=== PATIENT | female | born 1945 | race Caucasian/White ===

== ENCOUNTER → 2016-07-12 | Outpatient (CLI) | payer MEDICARE ==
[~2016-07-12] MED LIST: CALC1TAB30 PO; CALCTAB70; FOLI400T PO; FOLI400T30 PO; FURO1TAB60 PO; FURO1TAB62 PO; LEVO50TA4 PO; MAGN250T5; MAGN250T5 PO; METH50P; METH5INJ; METO25TA3 PO; OMEP10CA PO; OMEP40CA2 PO; PRAV40TA2 PO; PRIL10CA PO; PYRI100T4 PO; PYRI1TAB5; SILV1CRE80 TOPICAL; SYMB80AE INH; TOCI20IN; WARF-23 PO; WARF5 PO
[2016-07-12 11:32] LABS: BLOOD GAS BASE EXCESS 1.3 mmol/L (-2-2); BLOOD GAS CARBOXYHEMOGLOBIN 1.6 % (0-4); BLOOD GAS HCO3 25 mmol/L (22-26); BLOOD GAS METHEMOGLOBIN 1.1 % (0-2); BLOOD GAS O2 HGB SATURATION 91 % (90-100); BLOOD GAS OXYGEN CONTENT 16.9 Vol % (12.0-20.0); BLOOD GAS PCO2 39 mmHg (38-42); BLOOD GAS PO2 68 mmHg (61-120); BLOOD GAS TOTAL HGB 13.1 G/DL (12.0-16.0); CRITICAL VALUE NO; DRAW SITE RT RADIAL; FIO2 21 %; NUMBER OF ARTERIAL PUNCTURES 1; STAT NO; TEMP CORR TO 98.6; ULNAR PULSE PRESENT
--- NOTE | 2016-07-17 10:04 | RSPPFT ---
DATE OF PROCEDURE: 07/12/16 COMMENTS: Spirometry with FVC of 2.3, FEV1 of 1.4, FEV1/FVC ratio at 59%. A positive and significant response to acutely inhaled bronchodilator noted. Slow vital capacity is 83% of predicted. TLC is 100%.Diffusion capacity is normal. Flow volume loop suggests airways obstruction. Room air arterial blood gases show pH of 7.43, PCO2 of 39, PO2 of 68. IMPRESSION: 1. Moderately severe airways obstruction. 2. No evidence of airways restriction. 3. Normal diffusion capacity. 4. Adequate oxygenation and alveolar ventilation.
== END ==
LOC: HRSP 10:02
PROVIDERS: ATTEND Internal Medicine Sleep Medicine
DX: R06.89 Other abnormalities of breathing (principal)
CPT/HCPCS: 36600; 82805; 94060; 94726; 94729

== ENCOUNTER 2017-01-20 17:38 | Inpatient (IN) | payer MEDICARE ==
[~2017-01-20] VITALS: Ht 162.6 cm; Wt 114.2 kg
[2017-01-20] VITALS (8 sets, daily range): BP systolic 131–182; BP diastolic 62–76; PULSE 58–78; RESP 18–36; TEMP 98.6; O2SAT 80–100
[~2017-01-20 17:38] MED LIST changes: -CALCTAB70; -FOLI400T30 PO; -FURO1TAB62 PO; -MAGN250T5 PO; -METH50P; -OMEP10CA PO; -PRIL10CA PO; -PYRI1TAB5; -WARF5 PO
[2017-01-20] MEDS ORDERED: LISI10TA3 PO (17:56)
[2017-01-20] MEDS ORDERED: methylPREDNISolone SOD SUCC 125 MG/2 ML VIAL IVP ONE (18:00)
[2017-01-20] MEDS ORDERED: SODIUM CHLORIDE 0.9% FLUSH 10 ML FLUSH IVF PRN (18:00)
--- NOTE | 2017-01-20 18:07 | PD ---
HPI Chief Complaint: Respiratory Distress Time Seen by Provider: 17:46 Travel History International Travel<30 days: No Contact w/Intl Traveler<30days: No Traveled to known affect area: No History of Present Illness HPI The patient was seen and examined in the presence of the nurse. This patient complains of shortness of breath. Symptoms are severe. She has good waveform saturation of 75% and respiratory rate of 40. She arrives critically ill. She went to a walk-in center and was told she might have pneumonia and told to come here. The patient does not complain of any cough or chest pain or fever. She was a smoker for 30 some years but quit 15 years ago. No alleviating factors. Duration is 3 days. She denies any diagnosed cardiac or pulmonary problems. PFSH Past Medical History Arthritis: Yes Blood Disorders: No Heart Rhythm Problems: Yes (ATRIAL FIB/FLUTTER ) Cancer: No Cardiovascular Problems: Yes (ATRIAL FIBULATION/FLUTTER ,HEART CATH/TIAS) High Cholesterol: Yes Cerebrovascular Accident: Yes (TIA'S MULTIPLE IN PAST) Endocrine: No Gastrointestinal Disorders: No Genitourinary: No Hypertension: Yes Immune Disorder: No Implanted Vascular Access Dvce: No Musculoskeletal: Yes (arthritis rheumatoic ) Neurologic: Yes (RA) Psychiatric: No Reproductive: No Respiratory: No Thyroid Disease: Yes ?: Not Past Surgical History Cholecystectomy: Yes (2002) Other Surgery: Yes Social History Alcohol Use: No Tobacco Use: No Substance Use: No Allergies-Medications (Allergen,Severity, Reaction): Coded Allergies: No Known Allergies (Verified , 10/27/16) Reported Meds & Prescriptions Reported Meds & Active Scripts Active Pravastatin 40 Mg Tab 40 Mg PO DAILY Lasix (Furosemide) 40 Mg Tab 40 Mg PO DAILY Reported Lisinopril 10 Mg Tab 10 Mg PO DAILY Omeprazole 40 Mg Cap 40 Mg PO DAILY Calcium 600 + D (Calcium Carbonate-Cholecalciferol) 600-200 Mg-Unit Tab 1 Tab PO BID Magnesium Oxide 250 Mg Tab Methotrexate Inj 50 Mg/2 Ml Inj Pyridoxine (Pyridoxine HCl) 100 Mg Tab 100 Mg PO DAILY Actemra Inj (Tocilizumab Inj) 162 Mg/0.9 Ml Inj Warfarin 5 Mg Tab 5 Mg PO DAILY Folic Acid 400 Mcg Tab 400 Mcg PO DAILY Metoprolol Tartrate 25 Mg Tab 25 Mg PO TAKE 1/2 TAB BID Levothyroxine (Levothyroxine Sodium) 50 Mcg Tab 50 Mcg PO DAILY Review of Systems General / Constitutional: No: Fever Eyes: No: Visual changes HENT: No: Headaches Cardiovascular: No: Chest Pain or Discomfort Respiratory: Positive: Shortness of Breath Gastrointestinal: No: Abdominal Pain Genitourinary: No: Dysuria Musculoskeletal: No: Pain Skin: No Rash Neurologic: No: Weakness Psychiatric: No: Depression Endocrine: No: Polydipsia Hematologic/Lymphatic: No: Easy Bruising Physical Exam Narrative GENERAL: Well-nourished, well-developed patient in respiratory distress. SKIN: Focused skin assessment reveals no rash and nodules. Skin is Warm and dry. HEAD: Atraumatic. Normocephalic. EYES: Pupils equal and round. No scleral icterus. No injection or drainage. ENT: No nasal bleeding or discharge. Mucous membranes pink and moist. NECK: Trachea midline. No JVD. CARDIOVASCULAR: Regular rate and rhythm. No murmur appreciated. RESPIRATORY: Positive accessory muscle use. Some basilar crackles without wheeze. Breath sounds equal bilaterally. Respiratory rate is 36 GASTROINTESTINAL: Abdomen soft, non-tender, nondistended. Hepatic and splenic margins not palpable. MUSCULOSKELETAL: No obvious deformities. No clubbing. No cyanosis. symmetric lower extremity pitting edema over the tibia. NEUROLOGICAL: Awake and alert. No obvious cranial nerve deficits. Motor grossly within normal limits. Normal speech. PSYCHIATRIC: Appropriate mood and affect; insight and judgment normal. Data Data Last Documented VS Vital Signs Date Time Temp Pulse Resp B/P Pulse Ox O2 Delivery O2 Flow Rate FiO2 01/20/17 18:17 18 97 Nasal Cannula 4 01/20/17 17:49 78 01/20/17 17:40 98.6 Orders Electrocardiogram (01/20/17 ) Chest, Single Ap (01/20/17 ) Complete Blood Count With Diff (01/20/17 17:55) Basic Metabolic Panel (Bmp) (01/20/17 17:55) Act Partial Throm Time (Ptt) (01/20/17 17:55) Prothrombin Time / Inr (Pt) (01/20/17 17:55) Iv Access Insert/Monitor (01/20/17 17:55) Electrocardiogram (01/20/17 17:55) Ecg Monitoring (01/20/17 17:55) Oximetry (01/20/17 17:55) Oxygen Administration (01/20/17 17:55) Sodium Chloride 0.9% Flush (Ns Flush) (01/20/17 18:00) Methylprednisolone So Succ Inj (Solumedr (01/20/17 18:00) Albuterol-Ipratropium Neb (Duoneb Neb) (01/20/17 18:00) Furosemide Inj (Lasix Inj) (01/20/17 18:30) Ckmb (Isoenzyme) Profile (01/20/17 18:27) Troponin I (01/20/17 18:27) B-Type Natriuretic Peptide (01/20/17 18:27) Admit Order (Ed Use Only) (01/20/17 18:46) MDM Medical Decision Making Medical Screen Exam Complete: Yes Emergency Medical Condition: Yes Medical Record Reviewed: Yes Differential Diagnosis PE, COPD, pneumonia, pleural effusion Narrative Course I have reviewed the patient's electronic medical record. IV placed Labs ordered including cardiac enzymes and BNP I reviewed her EKG which shows sinus rhythm at [address] elevation Extended cardiac monitoring reveals sinus rhythm without ectopy I reviewed her chest x-ray which shows diffuse pulmonary edema consistent with CHF. Also note of a lung nodule and nonemergent chest CT could be done to evaluate that. I gave her multiple nebulizer treatments and IV Solu-Medrol Patient has extremely poor saturations. She is critically ill. I placed her on on her 100% percent nonrebreather On that her saturation is 100% Patient steadily improved. I gave her 80 mg IV Lasix I believe this is cardiac related and not pulmonary related She has no symptoms consistent with pneumonia At this point we've weaned her down to 4 L nasal cannula and her saturation is 96% She does desat rather drastically if taken off oxygen however I reviewed her medical residents who will admit to telemetry unit for diuresis and oxygen and monitoring and any further cardiac evaluation as needed Critical Care Narrative Aggregate critical care time was 40 minutes. Time to perform other separately billable procedures was not included in the critical care time. My time did not include minutes spent treating any other patients simultaneously or on activities that did not directly contribute to the patient's treatment. The services I provided to this patient were to treat and/or prevent clinically significant deterioration that could result in: Cardiopulmonary arrest, hypoxemic brain injury, cardiac arrhythmia I provided critical care services requiring my management, as noted below: Chart data review, documentation time, medication orders and management, vital sign assessments/reviewing monitor data, ordering and reviewing lab tests, ordering and interpreting/reviewing x-rays and diagnostic studies, care of the patient and discussion of the patient with the admitting physicians. Diagnosis Primary Impression: Acute respiratory failure with hypoxia Additional Impression: Congestive heart failure Qualified Code: I50.9 - Acute on chronic congestive heart failure, unspecified congestive heart failure type Admitting Information Admitting Physician Requests: Admit Jurgen Borden MD Jan 20, 2017 18:07
[2017-01-20] MEDS: RESP: ALBUTEROL 2.5 MG/IPRATROPIUM 0.5 MG NEB (SCH) INH (18:10)
--- NOTE | 2017-01-20 18:16 | RADRPT ---
EXAM DATE/TIME: 01/20/2017 17:52 [facility] COMPARISON: CHEST SINGLE AP, September 23, 2014, 7:32. INDICATIONS : Shortness of breath. MEDICAL HISTORY : Hypertension. Hypercholesterolemia. A-fib. SURGICAL HISTORY : Cholecystectomy. Heart Cath. ENCOUNTER: Initial ACUITY: 1 day PAIN SCORE: 0/10 LOCATION: Bilateral chest FINDINGS: Single AP view of the chest. Bilateral mid to lower lung zone pulmonary parenchymal opacity and pulmo nary vasculature indistinctness suggesting pulmonary edema. More focal confluent opacity in the later al right upper lung zone measuring 5 cm. Cardiomediastinal silhouette within normal limits. No eviden ce of pleural effusion or pneumothorax. CONCLUSION: 1. Symmetric bilateral lower lung zone opacity likely representing pulmonary edema. 2. More focal 5 cm right upper lung zone opacity may represent consolidation or mass. This finding co uld be further evaluated with noncontrast chest CT. Dax Ureña MD on January 20, 2017 at 18:12 Board Certified Radiologist. This report was verified electronically.
[2017-01-20] MEDS ORDERED: FUROSEMIDE 100 MG/10 ML VIAL IV PUSH ONE (18:30)
[2017-01-20 18:50] LABS: AUTOMATED NEUTROPHIL # 4.6 TH/MM3 (1.8-7.7); BASOPHIL % 0.6 % (0.0-2.0); EOSINOPHIL # 0.2 TH/MM3 (0-0.4); EOSINOPHIL % 3.3 % (0.0-4.0); HEMATOCRIT 37.8 % (35.0-46.0); HEMO FLAGS DIFF FINAL; LYMPH % 12.1 % (9.0-44.0); LYMPHOCYTE # 0.8 TH/MM3 (1.0-4.8); MEAN CELL VOLUME 92.4 FL (80.0-100.0); MEAN CORPUSCULAR HEMOGLOBIN 31.4 PG (27.0-34.0); MONO % 12.8 % (0.0-8.0); NEUT % 71.2 % (16.0-70.0); PLATELET COUNT 190 TH/MM3 (150-450); RED BLOOD COUNT 4.09 MIL/MM3 (4.00-5.30); RED CELL DISTRIBUTION WIDTH 17.1 % (11.6-17.2); WHITE BLOOD COUNT 6.4 TH/MM3 (4.0-11.0)
[2017-01-20 19:06] LABS: APTT (PATIENT) 38.7 SEC (24.3-30.1); INTERNATIONAL NORMALIZED RATIO 3.3 RATIO; PROTHROMBIN TIME - PATIENT 38.3 SEC (9.8-11.6)
[2017-01-20] MEDS ORDERED: SODIUM CHLORIDE 0.9% FLUSH 10 ML FLUSH IV FLUSH PRN (19:45)
--- NOTE | 2017-01-20 19:55 | HHI.HP ---
[facility] Service Family Medicine Primary Care Physician Catherine Corona , R3 MD Gael Admission Diagnosis acute hypoxic resp failure, exac of CHF Diagnoses: International Travel<30 Days: No Contact w/Intl Traveler<30days: No Known Affected Area: No History of Present Illness Patient is a 71-year-old female with history of atrial fibrillation, COPD presenting due to shortness of breath. Today patient was brought to an urgent care facility by her daughter who was concerned about her acutely worsening shortness of breath. She had an x-ray done and was told that she had pneumonia and told to go to the ED. Patient reports that over the past several days she has become increasingly more short of breath. She reports that her breathing was at its worst on . She notes that while walking from her car into the [facility] she had to stop and rest due to shortness of breath. She reports that after resting her breathing improved. Breathing is worse with activity, but improves when she is swimming in the pool. Breathing is also relieved by resting. She denies increase in fluid intake over the past several days. She endorses a productive cough, sputum is brown/yellow in color. She denies fevers, chills, chest pain, abdominal pain. Patient reports that she was diagnosed with COPD and July and she is followed by Dr. Cadet. She endorses lower extremity edema that is stable, no recent increase in swelling. Review of Systems Constitutional: DENIES: Fever, Chills Eyes: DENIES: Blurred vision Ears, nose, mouth, throat: DENIES: Hearing loss Respiratory: COMPLAINS OF: Cough, Sputum production, Shortness of breath Cardiovascular: COMPLAINS OF: Lower Extremity Edema, DENIES: Chest pain Gastrointestinal: DENIES: Abdominal pain, Black stools, Bloody stools Musculoskeletal: COMPLAINS OF: Joint Swelling (Lower extremities) Integumentary: COMPLAINS OF: Abnormal pigmentation (Bruising on upper extremities, stable) Hematologic/lymphatic: COMPLAINS OF: Bruising Psychiatric: DENIES: Mood changes Past Family Social History Past Medical History COPD, diagnosed in Rheumatoid arthritis Hypertension Hyperlipidemia Atrial fibrillation Obstructive sleep apnea, on CPAP Hypothyroidism Aortic atherosclerosis Grade 1 diastolic dysfunction, echo December 2015 with EF 5560 percent GERD Past Surgical History Cholecystectomy Carpal tunnel release EGD September 2016 Reported Medications Reported Meds & Active Scripts Active Pravastatin 40 Mg Tab 40 Mg PO DAILY Lasix (Furosemide) 40 Mg Tab 40 Mg PO DAILY Reported Lisinopril 10 Mg Tab 10 Mg PO DAILY Omeprazole 40 Mg Cap 40 Mg PO DAILY Calcium 600 + D (Calcium Carbonate-Cholecalciferol) 600-200 Mg-Unit Tab 1 Tab PO BID Magnesium Oxide 250 Mg Tab Methotrexate Inj 50 Mg/2 Ml Inj Pyridoxine (Pyridoxine HCl) 100 Mg Tab 100 Mg PO DAILY Actemra Inj (Tocilizumab Inj) 162 Mg/0.9 Ml Inj Warfarin 5 Mg Tab 5 Mg PO DAILY Folic Acid 400 Mcg Tab 400 Mcg PO DAILY Metoprolol Tartrate 25 Mg Tab 25 Mg PO TAKE 1/2 TAB BID Levothyroxine (Levothyroxine Sodium) 50 Mcg Tab 50 Mcg PO DAILY Allergies: Coded Allergies: No Known Allergies (Verified , 10/27/16) Active Ordered Medications Inpatient Medications Albuterol Sulfate (Albuterol Neb) 2.5 mg Q2HR NEB PRN INH SHORTNESS OF BREATH; Start 01/20/17 at 21:00 Albuterol/ Ipratropium (Duoneb Neb) 1 ampule Q4HR NEB INH Last administered on 01/21/17 00:00; Start 01/21/17 at 00:00 Azithromycin 500 mg 500 mg Taper DAILY PO ; Start 01/20/17 at 21:00; Stop at 20:59 Calcium/Vitamin D (Oscal-D 250-125) 500 mg BID PO ; Start 01/21/17 at 09:00 Ceftriaxone Sodium/Sodium Chloride (Rocephin Inj/NS Inj) 100 ml @ 200 mls/hr Q24H IV Last administered on 01/20/17 22:19; Start 01/20/17 at 21:00 Folic Acid (Folate) 0.5 mg DAILY PO ; Start 01/21/17 at 09:00 Furosemide (Lasix Inj) 40 mg DAILY IV PUSH ; Start 01/21/17 at 09:00 Levothyroxine Sodium (Synthroid) 50 mcg DAILY@06 PO ; Start 01/21/17 at 06:00 Lisinopril (Prinivil) 10 mg DAILY PO ; Start 01/21/17 at 09:00 Methylprednisolone Sodium Succinate (SoluMEDROL INJ) 60 mg Q6H IVP Last administered on 01/20/17 23:18; Start 01/21/17 at 00:00 Pantoprazole Sodium (Protonix) 40 mg DAILY PO ; Start 01/21/17 at 09:00 Pravastatin Sodium (Pravachol) 40 mg DAILY PO Last administered on 01/20/17t 23 :19; Start 01/20/17 at 21:00 Pyridoxine HCl (Vitamin B6) 100 mg DAILY PO ; Start 01/21/17 at 09:00 Sodium Chloride (NS Flush) 2 ml BID IV FLUSH ; Start 01/20/17 at 21:00 Warfarin Sodium (Coumadin) 5 mg DAILY PO ; Start 01/20/17 at 21:00; Stop at 21:06; Status DC HELD DUE TO SUPRATHERAPEUTIC INR Family History Mother: , unclear cause of next and father: , leukemia 2 sisters: One due to stroke, one sister had lung cancer, other had a blood disorder and was on Coumadin Daughter: healthy, cerebral palsy Social History Lives alone with her cat Retiredused to work at [employer] Denies alcohol use. Smoked one pack per day for 40 years, quit in 2001 Denies illicit drug use. Physical Exam Vital Signs Vital Signs Date Time Temp Pulse Resp B/P Pulse Ox O2 Delivery O2 Flow Rate FiO2 01/20/17 19:00 63 22 174/74 96 Nasal Cannula 4 01/20/17 18:17 18 97 Nasal Cannula 4 01/20/17 17:58 100 Non-Rebreather 15 01/20/17 17:57 78 Room Air 01/20/17 17:49 78 18 88 01/20/17 17:40 98.6 68 36 182/76 80 Room Air Physical Exam GENERAL: This is a well-nourished, well-developed patient, in no apparent distress. SKIN: Ecchymoses on upper extremities. Cool and dry. HEAD: Atraumatic. Normocephalic. No temporal or scalp tenderness. EYES: Pupils equal round and reactive. Extraocular motions intact. No scleral icterus. No injection or drainage. ENT: Nose without bleeding, purulent drainage or septal hematoma. Throat without erythema, tonsillar hypertrophy or exudate. Uvula midline. Airway patent. NECK: Trachea midline. No JVD or lymphadenopathy. Supple, nontender, no meningeal signs. CARDIOVASCULAR: Regular rate and rhythm without murmurs, gallops, or rubs. RESPIRATORY: Normal work of breathing, no accessory muscle use. Distant breath sounds. Coarse breath sounds in upper lung patiño. Crackles in lower lung patiño bilaterally. Occasional expiratory wheeze. GASTROINTESTINAL: Abdomen soft, obese, non-tender, nondistended. No hepato- splenomegaly, or palpable masses. No guarding. MUSCULOSKELETAL: Extremities without clubbing, cyanosis. 1+ pitting edema of lower extremities to mid calf bilaterally. No joint tenderness, effusion, or edema noted. No calf tenderness. Negative Homans sign bilaterally. NEUROLOGICAL: Awake and alert. Cranial nerves II through XII intact. Motor and sensory grossly within normal limits. Normal speech. Laboratory Laboratory Tests Test 01/20/17 17:55 White Blood Count 6.4 Red Blood Count 4.09 Hemoglobin 12.8 Hematocrit 37.8 Mean Corpuscular Volume 92.4 Mean Corpuscular Hemoglobin 31.4 Mean Corpuscular Hemoglobin 34.0 Concent Red Cell Distribution Width 17.1 Platelet Count 190 Mean Platelet Volume 8.9 Neutrophils (%) (Auto) 71.2 Lymphocytes (%) (Auto) 12.1 Monocytes (%) (Auto) 12.8 Eosinophils (%) (Auto) 3.3 Basophils (%) (Auto) 0.6 Neutrophils # (Auto) 4.6 Lymphocytes # (Auto) 0.8 Monocytes # (Auto) 0.8 Eosinophils # (Auto) 0.2 Basophils # (Auto) 0.0 CBC Comment DIFF FINAL Differential Comment Prothrombin Time 38.3 Prothromb Time International 3.3 Ratio Activated Partial 38.7 Thromboplast Time B-Type Natriuretic Peptide 152 Result Diagram: 01/20/17 1755 Imaging Chest X-Ray 01/20/17 0000 Signed Impressions: Service Date/Time: Friday, January 20, 2017 17:52 - CONCLUSION: 1. Symmetric bilateral lower lung zone opacity likely representing pulmonary edema. 2. More focal 5 cm right upper lung zone opacity may represent consolidation or mass. This finding could be further evaluated with noncontrast chest CT. Dax Ureña MD Assessment and Plan Assessment and Plan Patient is a 71-year-old female past with history significant for atrial fibrillation, COPD presenting due to worsening shortness of breath. Code Status Full Discussed Condition With [facility] with Medicine team Problem List: (1) Shortness of breath Status: Acute Plan: Patient presents with worsening shortness of breath. Differential includes COPD vs CHF vs others. When patient presented to the ED she was in acute respiratory distress with oxygen saturation in the 70s. She is currently stable on 4 L of nasal cannula. 2-D echo ordered BNP slightly elevated to 152 Continue to trend, we'll recheck in the a.m. Furosemide 40 mg IV daily Monitor electrolytes closely Chest x-ray concerning for pneumonia Will cover for community-acquired pneumonia with Rocephin 1 g IV daily and azithromycin 500 mg, to be tapered Albuterol prn SOB Methylprednisolone 60 mg IV Q6hrs Imaging: Chest x-ray: Symmetric bilateral lower lung zone opacity, likely representing pulmonary edema. Focal 5 cm right upper lung zone opacity may represent consolidation or mass. Chest CT without contrast ordered for further evaluation (2) COPD (chronic obstructive pulmonary disease) Status: Acute Plan: Patient reports that she was diagnosed with COPD in July. Continue home medications (per pt provided medication list): -Albuterol HFA -Formoterol/budesonide -Brio -Titrate oxygen as needed -See plan above (3) HLD (hyperlipidemia) Status: Acute Plan: Continue home Statin (4) HTN (hypertension) Status: Acute Plan: Continue home vacations: lisinopril 10 mg daily metoprolol tartrate 12.5 mg BID (5) Atrial fibrillation Status: Acute Plan: Pt with history of atrial fibrillation. She takes Coumadin 5 mg po Daily. -INR supratherapeutic at 3.3. We will hold Coumadin, resume once INR is within therapeutic range. -Continue rate control with metoprolol tartrate 12.5 mg PO BID -Rate currently well-controlled -Continue to monitor (6) Hypothyroidism Status: Acute Plan: Continue home Synthroid, 50 g daily We'll check TSH (7) RA (rheumatoid arthritis) Status: Acute Plan: We'll hold home methotrexate and Tocilizumab (8) FEN/PPX Status: Acute Plan: Fluids: None, pt with history of CHF avoid excess fluids Electrolytes: Within normal limits, continue to monitor Nutrition: Heart healthy Diet DVT PPX: Patient on warfarin, held, INR currently supratherapeutic at 3.3. Resume once INR is therapeutic GI PPX: Protonix Physician Certification 2 Midnight Certification Type: Admission for Inpatient Services Order for Inpatient Services The services are ordered in accordance with Medicare regulations or non- Medicare payer requirements, as applicable. In the case of services not specified as inpatient-only, they are appropriately provided as inpatient services in accordance with the 2-midnight benchmark. Estimated LOS (days): 2 2 days is the estimated time the patient will need to remain in the hospital, assuming treatment plan goals are met and no additional complications. Post-Hospital Plan: Not yet determined Anthony Greer MD R3 Jan 20, 2017 19:55
[2017-01-20 20:15] LABS: CREATINE KINASE 106 U/L (26-192)
[2017-01-20 20:28] LABS: CKMB 1.5 NG/ML (0.5-3.6)
[2017-01-20] MEDS: SODIUM CHLORIDE 0.9% FLUSH 10 ML FLUSH IV FLUSH SCH (21:00)
[2017-01-20] MEDS ORDERED: WARFARIN SOD 5 MG TAB PO SCH (21:00)
[2017-01-20] MEDS ORDERED: RESP: ALBUTEROL 2.5 MG/3 ML NEB (PRN) INH (21:00)
[2017-01-20] MEDS ORDERED: methylPREDNISolone SOD SUCC 125 MG/2 ML VIAL IVP SCH (21:00)
[2017-01-20] MEDS ORDERED: NON-FORMULARY DRUG (Calcium Carbonate-Cholecalciferol (Calcium 600 + D) 1 TAB) PO SCH (21:00)
[2017-01-20 21:34] LABS: BICARBONATE 27.2 MEQ/L (21.0-32.0); POTASSIUM 4.3 MEQ/L (3.5-5.1)
[2017-01-20] MEDS: cefTRIAXone INJ 1,000 MG in SODIUM CHLORIDE 0.9% INJ 100 ML IV SCH (22:19)
[2017-01-20] MEDS: methylPREDNISolone SOD SUCC 125 MG/2 ML VIAL IVP SCH (23:18)
[2017-01-20] MEDS: PRAVASTATIN SOD 40 MG TAB PO SCH (23:19)
[2017-01-21] VITALS (11 sets, daily range): BP systolic 91–134; BP diastolic 48–63; PULSE 58–81; RESP 16–20; TEMP 97.7–97.9; O2SAT 92–96
[2017-01-21] MEDS ORDERED: CALCIUM CARBONATE 500 MG CHEWABLE TAB CHEW ONE (02:45)
[2017-01-21] MEDS: RESP: ALBUTEROL 2.5 MG/IPRATROPIUM 0.5 MG NEB (SCH) INH ×6 (03:39→19:38)
[2017-01-21] MEDS: LEVOTHYROXINE SODIUM 50 MCG TAB PO SCH (05:50)
[2017-01-21] MEDS: methylPREDNISolone SOD SUCC 125 MG/2 ML VIAL IVP SCH ×4 (05:50→23:41)
[2017-01-21] MEDS: CALCIUM/VITAMIN D 250 MG/125 U TAB PO SCH ×2 (08:44→20:28)
[2017-01-21] MEDS: LISINOPRIL 10 MG TAB PO SCH (08:44)
[2017-01-21] MEDS: PANTOPRAZOLE SOD 40 MG DELAYED RELEASE TAB PO SCH (08:44)
[2017-01-21] MEDS: BUDESONIDE-FORMOTEROL 80/4.5 MCG INHALER INH SCH ×2 (08:44→20:27)
[2017-01-21] MEDS: FOLIC ACID 1 MG TAB PO SCH (08:44)
[2017-01-21] MEDS: PRAVASTATIN SOD 40 MG TAB PO SCH (08:44)
[2017-01-21] MEDS: AZITHROMYCIN 250 MG TAB PO SCH (08:44)
[2017-01-21] MEDS: SODIUM CHLORIDE 0.9% FLUSH 10 ML FLUSH IV FLUSH SCH ×2 (08:46→20:28)
[2017-01-21] MEDS: FUROSEMIDE 40 MG/4 ML VIAL IV PUSH SCH (08:46)
[2017-01-21] MEDS: PYRIDOXINE HCL 50 MG TAB PO SCH (08:55)
[2017-01-21] MEDS: FLUTICASONE 100 MCG/VILANTEROL 25 MCG INHALER INH SCH (08:55)
[2017-01-21] MEDS ORDERED: PYRIDOXINE 100 MG PO SCH (09:00)
[2017-01-21] MEDS ORDERED: NON-FORMULARY DRUG (Omeprazole 40 MG) PO SCH (09:00)
--- NOTE | 2017-01-21 10:16 | RADRPT ---
EXAM DATE/TIME: 01/21/2017 10:00 [facility] COMPARISON: CHEST SINGLE AP, September 23, 2014, 7:32. CHEST SINGLE AP, January 20, 2017, 17:52. INDICATIONS : Short of breath. MEDICAL HISTORY : Hypertension. Hypercholesterolemia. A-fib. SURGICAL HISTORY : Cholecystectomy. Heart Cath. ENCOUNTER: Subsequent ACUITY: 2 days PAIN SCORE: 0/10 LOCATION: Bilateral chest FINDINGS: PA and lateral views of the chest were obtained and demonstrate streaky bilateral interstitial opacit ies in both lungs right slightly greater than left. The heart size is mildly prominent. There is no e ffusion. There is thickening or fluid in the major fissure on the lateral exam. Atherosclerotic calci fications are present in the aorta. There is overlying oxygen tubing. The bony thorax is intact. CONCLUSION: 1. Bilateral streaky interstitial opacities again noted right greater than left. This remains of conc darlin for pulmonary edema. 2. Thickening or fluid in the major fissure with no blunting the costophrenic angles. Mateo Perales MD on January 21, 2017 at 10:09 Board Certified Radiologist. This report was verified electronically.
--- NOTE | 2017-01-21 11:24 | HHI.FPPN ---
Subjective Remarks Medicine attending note: Very pleasant 71-year-old woman admitted with shortness of breath and hypoxia. 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 Castanon, did tell her recently that she had COPD when she was being seen for follow-up of her sleep apnea. Patient states she was relatively stable until 01/18/17 when she was walking across the parking lot at the [facility] and aching very aware of shortness of breath. She proceeded to her workout which consist of swimming at the pool and noted that her breathing was better while swimming although the shortness of breath returned after getting out of the pool. Symptoms persisted until the evening of admission when the shortness of breath became much more noticeable and she did have an associated dry cough, no hemoptysis. Does not describe chest pain. Has a past medical history significant for sleep apnea, GERD, hyperlipidemia, atrial fibrillation on chronic anticoagulation with Coumadin, rheumatoid arthritis on a biologic dmard, methotrexate and hypothyroidism. Please refer to resident history and physical for complete discussion of details of the presenting illness, past medical history, family history, social history and review of systems. Objective Vitals Vital signs noted. O2 saturation 95% on 3 L nasal cannula. Gen. appearance: Older woman, who does appear overweight, sitting reasonably comfortable in a chair at the time of exam. Alert good eye contact, normal affect. Notable suntanned areas on posterior chest and arms. HEENT: Grossly nonlocalizing. Neck: No carotid bruits. Lungs: Diminished clear breath sounds, no localized findings, scattered rhonchi , specifically no wheezing. Cardiac: Regular rhythm, no S3. Abdomen: Protuberant, soft, no tenderness reported, examined sitting in a chair. Lower extremities: 2+ dorsalis be his pulse no ankle edema, very muscular lower extremities. Vital Signs Date Time Temp Pulse Resp B/P Pulse Ox O2 Delivery O2 Flow Rate FiO2 01/21/17 08:37 95 Nasal Cannula 3.00 01/21/17 08:00 97.7 81 20 134/63 95 01/21/17 05:00 97.7 66 18 94/48 96 01/21/17 04:00 Nasal Cannula 4.00 01/21/17 00:47 92 Nasal Cannula 4.00 01/21/17 00:00 97.9 58 18 112/55 93 01/21/17 00:00 Nasal Cannula 4.00 01/20/17 23:00 Nasal Cannula 4.00 01/20/17 23:00 65 01/20/17 22:28 58 18 131/62 93 01/20/17 22:00 68 20 158/76 95 Nasal Cannula 4 01/20/17 19:57 96 Nasal Cannula 4.00 01/20/17 19:00 63 22 174/74 96 Nasal Cannula 4 01/20/17 18:17 18 97 Nasal Cannula 4 01/20/17 17:58 100 Non-Rebreather 15 01/20/17 17:57 78 Room Air 01/20/17 17:49 78 18 88 01/20/17 17:40 98.6 68 36 182/76 80 Room Air I/O 01/20/17 01/20/17 01/20/17 01/21/17 01/21/17 01/21/17 07:00 15:00 23:00 07:00 15:00 23:00 Output Total 225 ml Balance -225 ml Output Urine Total 225 ml Result Diagram: 01/20/17 1755 01/20/17 1935 A/P Assessment and Plan Clinical assessment: Delightful 70-year-old woman presenting with increasing shortness of breath with a significant change on 01/18/17. Differential diagnosis to include exacerbation of underlying COPD, CHF,? Diastolic versus systolic. Doubt pulmonary embolus with subtherapeutic Coumadin INR 3.3. Anticoagulation-medication was reconciled, she is taking between 7.5 and 10 mg daily, noted that the INR is 3.3 however concerned that if this Coumadin is held until it is in a mid therapeutic range that it will take several days to achieve equilibrium. Discussed with pharmacy. History of atrophic fibrillation, currently the patient is in a sinus rhythm. History of sleep apnea Hyperlipidemia GERD History of hypertension Rheumatoid arthritis on biologic dmard and methotrexate Hypothyroidism Patient seen and examined. Case reviewed and discussed with resident team. Agree with plan of care as discussed with me and documented in the resident note Problem List: (1) Shortness of breath Status: Acute Plan: Patient presents with worsening shortness of breath. Differential includes COPD vs CHF vs others. When patient presented to the ED she was in acute respiratory distress with oxygen saturation in the 70s. She is currently stable on 4 L of nasal cannula. 2-D echo ordered BNP slightly elevated to 152 Continue to trend, we'll recheck in the a.m. Furosemide 40 mg IV daily Monitor electrolytes closely Chest x-ray concerning for pneumonia Will cover for community-acquired pneumonia with Rocephin 1 g IV daily and azithromycin 500 mg, to be tapered Albuterol prn SOB Methylprednisolone 60 mg IV Q6hrs Imaging: Chest x-ray: Symmetric bilateral lower lung zone opacity, likely representing pulmonary edema. Focal 5 cm right upper lung zone opacity may represent consolidation or mass. Chest CT without contrast ordered for further evaluation (2) COPD (chronic obstructive pulmonary disease) Status: Acute Plan: Patient reports that she was diagnosed with COPD in July. Continue home medications (per pt provided medication list): -Albuterol HFA -Formoterol/budesonide -Brio -Titrate oxygen as needed -See plan above (3) HLD (hyperlipidemia) Status: Acute Plan: Continue home Statin (4) HTN (hypertension) Status: Acute Plan: Continue home vacations: lisinopril 10 mg daily metoprolol tartrate 12.5 mg BID (5) Atrial fibrillation Status: Acute Plan: Pt with history of atrial fibrillation. She takes Coumadin 5 mg po Daily. -INR supratherapeutic at 3.3. We will hold Coumadin, resume once INR is within therapeutic range. -Continue rate control with metoprolol tartrate 12.5 mg PO BID -Rate currently well-controlled -Continue to monitor (6) Hypothyroidism Status: Acute Plan: Continue home Synthroid, 50 g daily We'll check TSH (7) RA (rheumatoid arthritis) Status: Acute Plan: We'll hold home methotrexate and Tocilizumab (8) FEN/PPX Status: Acute Plan: Fluids: None, pt with history of CHF avoid excess fluids Electrolytes: Within normal limits, continue to monitor Nutrition: Heart healthy Diet DVT PPX: Patient on warfarin, held, INR currently supratherapeutic at 3.3. Resume once INR is therapeutic GI PPX: Protonix Felipe Jacobson MD Jan 21, 2017 11:24
[2017-01-21] MEDS: ALBUTEROL SULFATE 90 MCG/ACT HFA 18 GM INHALER INH SCH ×3 (11:49→23:42)
--- NOTE | 2017-01-21 12:26 | EKG ---
Date Performed: 01/20/2017 Time Performed: 17:57:39 PTAGE: 71 years EKG: Sinus rhythm ANTEROSEPTAL MYOCARDIAL INFARCTION ABNORMAL ECG PREVIOUS TRACING : 09/23/2014 03.11 Compared to prior tracing no significant change DOCTOR: Jesus Graves Interpretating Date/Time 01/21/2017 12:23:35
[2017-01-21] MEDS: WARFARIN SOD 7.5 MG TAB PO SCH (15:23)
[2017-01-21] MEDS ORDERED: FUROSEMIDE 40 MG/4 ML VIAL IV PUSH ONE (18:15)
[2017-01-21 18:29] LABS: AUTOMATED NEUTROPHIL # 13.7 TH/MM3 (1.8-7.7); HEMATOCRIT 35.7 % (35.0-46.0); HEMO FLAGS DIFF FINAL; LYMPH % 3.4 % (9.0-44.0); LYMPHOCYTE # 0.5 TH/MM3 (1.0-4.8); MEAN CELL VOLUME 92.5 FL (80.0-100.0); MEAN CORPUSCULAR HEMOGLOBIN 30.9 PG (27.0-34.0); MEAN CORPUSCULAR HGB CONC 33.4 % (32.0-36.0); MONO % 2.1 % (0.0-8.0); NEUT % 94.5 % (16.0-70.0); PLATELET COUNT 175 TH/MM3 (150-450); RED BLOOD COUNT 3.85 MIL/MM3 (4.00-5.30); RED CELL DISTRIBUTION WIDTH 17.1 % (11.6-17.2); WHITE BLOOD COUNT 14.5 TH/MM3 (4.0-11.0)
[2017-01-21 18:43] LABS: INTERNATIONAL NORMALIZED RATIO 2.4 RATIO; PROTHROMBIN TIME - PATIENT 27.4 SEC (9.8-11.6)
[2017-01-21 19:00] LABS: ANION GAP 7 MEQ/L (5-15); AST (GOT) 17 U/L (15-37); BICARBONATE 26.8 MEQ/L (21.0-32.0); BLOOD UREA NITROGEN 34 MG/DL (7-18); CHLORIDE 101 MEQ/L (98-107); GLOMERULAR FILTRATION RATE 38 ML/MIN (>89); SODIUM (NA) 135 MEQ/L (136-145)
[2017-01-21 19:28] LABS: ALKALINE PHOSPHATASE 63 U/L (45-117); ALT (GPT) 29 U/L (10-53); TOTAL BILIRUBIN ADULT 0.3 MG/DL (0.2-1.0)
[2017-01-21] MEDS: cefTRIAXone INJ 1,000 MG in SODIUM CHLORIDE 0.9% INJ 100 ML IV SCH (20:28)
[2017-01-22] VITALS (9 sets, daily range): BP systolic 96–120; BP diastolic 40–60; PULSE 69–82; RESP 18–20; TEMP 97.3–97.9; O2SAT 92–96
[2017-01-22] MEDS: RESP: ALBUTEROL 2.5 MG/IPRATROPIUM 0.5 MG NEB (SCH) INH ×6 (04:08→19:31)
[2017-01-22] MEDS: LEVOTHYROXINE SODIUM 50 MCG TAB PO SCH (05:30)
[2017-01-22] MEDS: methylPREDNISolone SOD SUCC 125 MG/2 ML VIAL IVP SCH ×3 (05:30→17:16)
[2017-01-22] MEDS: ALBUTEROL SULFATE 90 MCG/ACT HFA 18 GM INHALER INH SCH ×3 (05:32→17:17)
[2017-01-22] MEDS: FOLIC ACID 1 MG TAB PO SCH (08:29)
[2017-01-22] MEDS: AZITHROMYCIN 250 MG TAB PO SCH (08:29)
[2017-01-22] MEDS: PRAVASTATIN SOD 40 MG TAB PO SCH (08:29)
[2017-01-22] MEDS: PANTOPRAZOLE SOD 40 MG DELAYED RELEASE TAB PO SCH (08:29)
[2017-01-22] MEDS: CALCIUM/VITAMIN D 250 MG/125 U TAB PO SCH ×2 (08:29→20:56)
[2017-01-22] MEDS: FLUTICASONE 100 MCG/VILANTEROL 25 MCG INHALER INH SCH (08:29)
[2017-01-22] MEDS: BUDESONIDE-FORMOTEROL 80/4.5 MCG INHALER INH SCH ×2 (08:29→20:56)
[2017-01-22] MEDS: PYRIDOXINE HCL 50 MG TAB PO SCH (08:30)
[2017-01-22] MEDS: LISINOPRIL 10 MG TAB PO SCH (08:30)
[2017-01-22] MEDS: SODIUM CHLORIDE 0.9% FLUSH 10 ML FLUSH IV FLUSH SCH ×2 (08:37→20:55)
[2017-01-22] MEDS: FUROSEMIDE 40 MG/4 ML VIAL IV PUSH SCH (08:37)
[2017-01-22 11:28] LABS: AUTOMATED NEUTROPHIL # 19.3 TH/MM3 (1.8-7.7); HEMATOCRIT 36.9 % (35.0-46.0); HEMO FLAGS DIFF FINAL; LYMPHOCYTE # 0.4 TH/MM3 (1.0-4.8); MEAN CELL VOLUME 93.5 FL (80.0-100.0); MEAN CORPUSCULAR HEMOGLOBIN 30.4 PG (27.0-34.0); MEAN CORPUSCULAR HGB CONC 32.6 % (32.0-36.0); MONO % 2.9 % (0.0-8.0); NEUT % 95.1 % (16.0-70.0); PLATELET COUNT 195 TH/MM3 (150-450); RED BLOOD COUNT 3.95 MIL/MM3 (4.00-5.30); RED CELL DISTRIBUTION WIDTH 17.8 % (11.6-17.2); WHITE BLOOD COUNT 20.3 TH/MM3 (4.0-11.0)
[2017-01-22 11:37] LABS: INTERNATIONAL NORMALIZED RATIO 2.7 RATIO; PROTHROMBIN TIME - PATIENT 30.8 SEC (9.8-11.6)
[2017-01-22 11:48] LABS: BICARBONATE 28.5 MEQ/L (21.0-32.0); POTASSIUM 3.9 MEQ/L (3.5-5.1)
--- NOTE | 2017-01-22 14:45 | RADRPT ---
EXAM DATE/TIME: 01/22/2017 13:29 [facility] COMPARISON: CHEST PA & LAT, January 21, 2017, 10:00. INDICATIONS : Dyspnea. DOSE: 8.2 mCi Tc99m MAA IV 1.2 mCi Tc99m DTPA aerosol MEDICAL HISTORY : Chronic obstructive pulmonary disease. Congestive heart failure. Stroke. Smoker. SURGICAL HISTORY : Cholecystectomy. ENCOUNTER: Initial ACUITY: 1 day PAIN SCALE: 0/10 LOCATION: chest TECHNIQUE: Following five minutes of tidal breathing of DTPA aerosol, planar images of the lungs were performed in eight projections. The patient was then injected with MAA, and eight-view perfusion scan was perf ormed. FINDINGS: There is inhomogeneous deposition of tracer on the ventilatory scan is suggested probably ventilatory defect. The perfusion lung scan demonstrates a homogenous pattern of uptake in both lungs. No segmental or s ubsegmental defects are seen. CONCLUSION: Normal perfusion with markedly abnormal ventilation all consistent with the course interstitial and a lveolar opacities in both lungs. CT scan of the chest would be of benefit.. Jamar Nur MD FACR on January 22, 2017 at 14:42 Board Certified Radiologist. This report was verified electronically.
[2017-01-22] MEDS: WARFARIN SOD 7.5 MG TAB PO SCH (17:16)
--- NOTE | 2017-01-22 17:21 | HHI.FPPN ---
Subjective Remarks Patient seen and examined this morning by medical team. No acute events overnight with vital signs stable. Patient requiring nasal cannula oxygen up to 4 L overnight to maintain saturation above 93% per nursing staff. This morning medical team again discussed her history prior to presenting to the emergency department. She states that she felt best when she was swimming and felt like "the weight was lifted off her lungs." Overnight she diuresed well after receiving 40 mg of IV Lasix, however she continues to require nasal cannula oxygen. Otherwise she has no complaints and denies any fevers, chills, shortness breath, chest pain, NVD, abdominal pain, or calf tenderness. (Ezio Ocasio MD R2) Objective Vitals Vital Signs Date Time Temp Pulse Resp B/P Pulse Ox O2 Delivery O2 Flow Rate FiO2 01/22/17 16:00 97.9 73 20 96/40 95 01/22/17 12:00 97.8 75 20 101/48 95 01/22/17 08:24 93 Nasal Cannula 3.00 01/22/17 08:00 93 3.00 01/22/17 08:00 82 01/22/17 08:00 97.5 74 20 107/52 96 01/22/17 05:12 97.3 75 18 109/52 92 01/22/17 04:00 Nasal Cannula 4.00 01/22/17 00:40 97.6 71 18 112/55 95 01/22/17 00:00 Nasal Cannula 4.00 01/21/17 22:03 97.7 79 16 91/49 94 01/21/17 20:00 Nasal Cannula 4.00 01/21/17 20:00 75 01/21/17 19:41 96 Nasal Cannula 2.50 I/O 01/21/17 01/21/17 01/21/17 01/22/17 01/22/17 01/22/17 07:00 15:00 23:00 07:00 15:00 23:00 Intake Total 840 ml 480 ml 720 ml Output Total 225 ml 1200 ml 600 ml 250 ml Balance -225 ml -360 ml -120 ml 470 ml Intake Oral 840 ml 480 ml 720 ml Output Urine Total 225 ml 1200 ml 600 ml 250 ml # Bowel Movements 1 1 (Ezio Ocasio MD R2) Result Diagram: 01/22/1740 01/22/1740 Objective Remarks GENERAL: Well-nourished, well-developed female sitting up in her recliner in no acute distress. SKIN: Warm and dry. No rash. HEENT: Atraumatic, normocephalic with EOMI. MMM. No LAD or JVD appreciated. CARDIOVASCULAR: Regular rate and rhythm without obvious murmurs, gallops, or rubs. RESPIRATORY: Bilateral basilar crackles appreciated on auscultation. No increased work of breathing, but distant breath sounds. No wheezing. GASTROINTESTINAL: Abdomen protuberant, soft, nontender with positive bowel sounds. No masses appreciated while examined in chair. Currently on 3 L nasal cannula. MUSCULOSKELETAL: No cyanosis or edema. Strength grossly WNL. 2+ pulses in all 4 extremities. NEURO/PSYCH: Afocal. Awake, alert, and oriented x3. Normal speech and interaction with medical staff. (Ezio Ocasio MD R2) A/P Assessment and Plan Patient is a 71-year-old female past with history significant for atrial fibrillation, COPD presenting due to worsening shortness of breath. Discharge Planning Pending clinical improvement and recommendations by pulmonology. (Ezio Ocasio MD R2) Assessment and Plan Patient seen and examined. Case reviewed and discussed with the resident team. Agree with plan of care as discussed with me an documented in the resident note. (Felipe Jacobson MD) Problem List: (1) Shortness of breath Status: Acute Plan: Patient presents with worsening shortness of breath. Differential includes COPD vs CHF vs others. When patient presented to the ED she was in acute respiratory distress with oxygen saturation in the 70s. She is currently stable on 4 L of nasal cannula. 2-D echo ordered, pending BNP slightly elevated to 152, repeat 296 Furosemide 40 mg IV daily, additional dose received 01/21 Monitor electrolytes closely Chest x-ray concerning for pneumonia Continue Rocephin 1 g IV daily and azithromycin 500 mg Albuterol prn SOB Methylprednisolone 60 mg IV Q6hrs Consult pulmonology, patient known to Dr. Castanon. Appreciate recommendations Imaging: Chest x-ray 01/20: Symmetric bilateral lower lung zone opacity, likely representing pulmonary edema. Focal 5 cm right upper lung zone opacity may represent consolidation or mass. Chest CT without contrast ordered for further evaluation Chest x-ray 01/21: Bilateral streaky interstitial opacities again noted on the right greater than left. Remains concern for pulmonary edema. There are thickening or fluid in the major fissure with no blunting of the costophrenic angles. VQ scan 01/22: Normal perfusion with markedly abnormal ventilation, consistent with coarse interstitial and alveolar opacities in both lungs. CT scan 01/22: Pending (2) COPD (chronic obstructive pulmonary disease) Status: Acute Plan: Patient reports that she was diagnosed with COPD in July. Continue home medications (per pt provided medication list): -Albuterol HFA -Formoterol/budesonide -Brio -Titrate oxygen as needed -See plan above (3) HLD (hyperlipidemia) Status: Acute Plan: Continue home Statin (4) HTN (hypertension) Status: Acute Plan: Continue home vacations: lisinopril 10 mg daily metoprolol tartrate 12.5 mg BID (5) Atrial fibrillation Status: Acute Plan: Pt with history of atrial fibrillation. She takes Coumadin 5 mg po Daily. -INR supratherapeutic at 3.3 on admission, held on admission, currently therapeutic on Coumadin 7.5 mg daily -Continue rate control with metoprolol tartrate 12.5 mg PO BID -Rate currently well-controlled -Continue to monitor (6) Hypothyroidism Status: Acute Plan: TSH: 0.343 Continue levothyroxine 50 g per day, will confirm with patient if she has been compliant with medication before increasing dose (7) RA (rheumatoid arthritis) Status: Acute Plan: Hold home methotrexate and Tocilizumab (8) FEN/PPX Status: Acute Plan: Fluids: None, pt with history of CHF avoid excess fluids Electrolytes: Within normal limits, continue to monitor Nutrition: Heart healthy Diet DVT PPX: Patient on warfarin, held, INR supratherapeutic at 3.3 on admission. GI PPX: Protonix (Ezio Ocasio MD R2) Ezio Ocasio MD R2 Jan 22, 2017 17:21 Felipe Jacobson MD Jan 22, 2017 18:13
--- NOTE | 2017-01-22 19:24 | ECHRPT ---
Indication: Shortness of breath CONCLUSIONS Mild concentric left ventricular hypertrophy. The left ventricular systolic function is normal with an estimated ejection fraction of 55%. No regional wall motion abnormalities are present. Mitral annular calcification. Severe thickening of the aortic valve leaflets. No aortic valve regurgitation. Mild aortic valve stenosis. BP: 109 / 57 HR: 73 Rhythm: Sinus Technical Quality:Poor FINDINGS LEFT VENTRICLE Mild concentric left ventricular hypertrophy. The left ventricular systolic function is normal with an estimated ejection fraction of 55%. No regional wall motion abnormalities are present. RIGHT VENTRICLE Normal right ventricular size and systolic function. LEFT ATRIUM The left atrial size is normal. RIGHT ATRIUM The right atrial size is normal. ATRIAL SEPTUM Normal atrial septal thickness without atrial level shunting by limited color doppler interrogation. AORTA The aortic root and proximal ascending aorta are normal in size on limited imaging. MITRAL VALVE Mitral annular calcification. AORTIC VALVE Trileaflet aortic valve. Severe thickening of the aortic valve leaflets. No aortic valve regurgitation. Mild aortic valve stenosis. TRICUSPID VALVE Structurally normal tricuspid valve. No tricuspid valve stenosis or regurgitation. PULMONARY VALVE The pulmonary valve is not well visualized. VESSELS The inferior vena cava was not well visualized. PERICARDIUM No pericardial effusion. Julio Rock MD, FACC (Electronically Signed) Final Date:22 January 2017 19:24
--- NOTE | 2017-01-22 20:21 | RADRPT ---
EXAM DATE/TIME: 01/22/2017 18:55 [facility] COMPARISON: CHEST PA & LAT, January 21, 2017, 10:00. INDICATIONS : Short of breath. RADIATION DOSE: 9.59 CTDIvol (mGy) MEDICAL HISTORY : Cardiovascular disease. Congestive heart failure. Hypertension. SURGICAL HISTORY : Cholecystectomy. ENCOUNTER: Initial ACUITY: 1 day PAIN SCALE: 0/10 LOCATION: chest TECHNIQUE: Volumetric scanning of the chest was performed. Using automated exposure control and adjustment of t he mA and/or kV according to patient size, radiation dose was kept as low as reasonably achievable to obtain optimal diagnostic quality images. DICOM format image data is available electronically for r eview and comparison. Follow-up recommendations for detected pulmonary nodules are based at a minimum on nodule size and pa tient risk factors according to Fleischner Society Guidelines. FINDINGS: Patchy infiltrate seen of both lungs, most conspicuous in the right upper lobe. No large organ/conflu ent consolidation. No pleural effusion or pneumothorax. There is no mediastinal, hilar or axillary lymphadenopathy. Normal heart size. Coronary artery calcification noted, both right and left-sided. Tiny bilateral pleural effusions noted. CONCLUSION: 1. Mild bilateral patchy pneumonia, mostly the right upper lobe. 2. Tiny bilateral pleural effusions. 3. Coronary artery calcification. Micah Carr MD on January 22, 2017 at 20:17 Board Certified Radiologist. This report was verified electronically.
[2017-01-22] MEDS: cefTRIAXone INJ 1,000 MG in SODIUM CHLORIDE 0.9% INJ 100 ML IV SCH (20:56)
--- NOTE | 2017-01-22 21:17 | MB ---
cc: LG CASTANON M.D. DATE OF CONSULTATION 01/22/2017 REASON FOR CONSULTATION COPD exacerbation, question CHF. HISTORY OF PRESENT ILLNESS Mrs. Ocasio is a 71-year-old female with known history of COPD. The patient as well has a history of obstructive sleep apnea for which she uses C-PAP therapy. Admitted with increasing shortness of breath progressively worse over a week or two. The patient has no cough, no expectoration. No fever or chills. No hemoptysis. Chest x-ray upon presentation was suggestive of congestive heart failure. PAST MEDICAL HISTORY Is that of: 1. COPD. 2. Hypertension. 3. Hyperlipidemia. 4. Atrial fibrillation. 5. Obstructive sleep apnea. 6. Hypothyroidism. 7. Grade 1 diastolic dysfunction. 8. Previous cholecystectomy. 9. Carpal tunnel surgery. MEDICATIONS At home: 1. Breo once daily. 2. Levothyroxine. 3. Metoprolol. 4. Coumadin. 5. Pyridoxine. 6. Methotrexate. 7. Magnesium. 8. Calcium. 9. Omeprazole. 10. Lisinopril. 11. Pravastatin. 12. Lasix. ALLERGIES NONE KNOWN TO MEDICATIONS. FAMILY HISTORY Noncontributory. REVIEW OF SYSTEMS 12-point review of systems as per HPI and past history otherwise negative. PHYSICAL EXAMINATION GENERAL: The patient is alert. VITAL SIGNS: Temperature 98, pulse 70, respiratory rate 20, blood pressure 101/50. Oxygen saturation 95% on 3 liters oxygen nasal cannula. HEENT: Unremarkable. Eyes without icterus. NECK: Without adenopathy or thyroid enlargement. Central trachea. CHEST: A few scattered rhonchi bilaterally. Decreased breath sounds. CARDIOVASCULAR: Irregularity noted. ABDOMEN: Obese. Lax. Bowel sounds audible. EXTREMITIES: Trace edema. IMAGING A chest x-ray with congestive change otherwise unremarkable. LABORATORY DATA White count 20,000. Hemoglobin 12, hematocrit 36, platelets 17.8. Sodium 138, potassium 3.9, BUN 43, creatinine 1.4. IMPRESSION 1. COPD exacerbation. 2. Diastolic dysfunction question congestive heart failure by chest x-ray. 3. Atrial fibrillation. 4. Obstructive sleep apnea on C-PAP. 5. Hypothyroidism. 6. Rheumatoid arthritis. 7. Hypertension. 8. Hyperlipidemia. PLAN The patient will be maintained on oxygen therapy as needed. Bronchodilator therapy will be continued. Echocardiogram obtained to assess left ventricular performance and depending on findings will adjust therapy as needed. I do thank you for asking to partake in Mrs. Ocasio' care. Lg Castanon MD WWW/KUMAR /4:25 PM /8:57 PM
[2017-01-23] VITALS (11 sets, daily range): BP systolic 99–131; BP diastolic 53–85; PULSE 67–76; RESP 16–20; TEMP 97.4–97.8; O2SAT 92–98
[2017-01-23] MEDS: methylPREDNISolone SOD SUCC 125 MG/2 ML VIAL IVP SCH ×3 (00:07→13:26)
[2017-01-23] MEDS: RESP: ALBUTEROL 2.5 MG/IPRATROPIUM 0.5 MG NEB (SCH) INH ×6 (01:14→20:03)
[2017-01-23] MEDS: LEVOTHYROXINE SODIUM 50 MCG TAB PO SCH (04:53)
[2017-01-23] MEDS: ALBUTEROL SULFATE 90 MCG/ACT HFA 18 GM INHALER INH SCH ×4 (04:54→17:03)
[2017-01-23] MEDS: FOLIC ACID 1 MG TAB PO SCH (09:00)
[2017-01-23] MEDS: BUDESONIDE-FORMOTEROL 80/4.5 MCG INHALER INH SCH (09:00)
[2017-01-23] MEDS: PANTOPRAZOLE SOD 40 MG DELAYED RELEASE TAB PO SCH (09:27)
[2017-01-23] MEDS: FUROSEMIDE 40 MG/4 ML VIAL IV PUSH SCH (09:27)
[2017-01-23] MEDS: CALCIUM/VITAMIN D 250 MG/125 U TAB PO SCH ×2 (09:27→20:00)
[2017-01-23] MEDS: PYRIDOXINE HCL 50 MG TAB PO SCH (09:27)
[2017-01-23] MEDS: PRAVASTATIN SOD 40 MG TAB PO SCH (09:27)
[2017-01-23] MEDS: AZITHROMYCIN 250 MG TAB PO SCH (09:27)
[2017-01-23] MEDS: LISINOPRIL 10 MG TAB PO SCH (09:27)
[2017-01-23] MEDS: FLUTICASONE 100 MCG/VILANTEROL 25 MCG INHALER INH SCH (09:28)
[2017-01-23] MEDS: SODIUM CHLORIDE 0.9% FLUSH 10 ML FLUSH IV FLUSH SCH ×2 (09:29→20:01)
--- NOTE | 2017-01-23 10:03 | HHI.FPPN ---
Subjective Remarks Patient seen and examined this morning by Medical Team. No acute events overnight with VSS. Patient currently with oxygen saturation of 98% on 2L NC. This morning she is concerned about missing her methotrexate dose. She normally receives her injection from Dr. Allred's office, but is unsure of her dose at this time. She states that overall she is "75% better" since her admission and is looking forward to going home next couple of days. She has no other complaints and denies any fevers, chills, shortness of breath, chest pain, NVD, abdominal pain, or calf tenderness. Objective Vitals Vital Signs Date Time Temp Pulse Resp B/P Pulse Ox O2 Delivery O2 Flow Rate FiO2 01/23/17 08:42 98 Nasal Cannula 2.00 01/23/17 08:00 97.6 76 20 120/55 93 01/23/17 04:00 Nasal Cannula 3.00 01/23/17 03:54 97.5 73 18 113/56 92 01/23/17 00:10 97.4 73 18 99/57 94 01/23/17 00:00 Nasal Cannula 3.00 01/22/17 21:39 69 01/22/17 21:14 97.5 75 18 120/60 96 01/22/17 20:00 Nasal Cannula 3.00 01/22/17 19:31 93 Nasal Cannula 2.00 01/22/17 16:00 95 Room Air 01/22/17 16:00 97.9 73 20 96/40 95 01/22/17 12:00 97.8 75 20 101/48 95 I/O 01/22/17 01/22/17 01/22/17 01/23/17 01/23/17 01/23/17 07:00 15:00 23:00 07:00 15:00 23:00 Intake Total 1305 ml 206 ml Output Total 500 ml 800 ml Balance 805 ml -594 ml Intake Oral 1200 ml 200 ml IV Total 105 ml 6 ml Output Urine Total 500 ml 800 ml # Bowel Movements 1 0 Result Diagram: 01/22/1740 01/22/1740 Objective Remarks GENERAL: Well-nourished, well-developed female sitting up in her recliner in no acute distress. Patient seen walking with respiratory therapist prior to evaluation without significant difficulty. SKIN: Warm and dry. No rash. HEENT: Atraumatic, normocephalic with EOMI. MMM. No LAD or JVD appreciated. CARDIOVASCULAR: Regular rate and rhythm without obvious murmurs, gallops, or rubs. RESPIRATORY: Faint bilateral basilar crackles appreciated on auscultation, improved from prior exam. No increased work of breathing, but distant breath sounds. No wheezing. GASTROINTESTINAL: Abdomen protuberant, soft, nontender with positive bowel sounds. No masses appreciated while examined in chair. Currently on 3 L nasal cannula. MUSCULOSKELETAL: No cyanosis or edema. Strength grossly WNL. 2+ pulses in all 4 extremities. NEURO/PSYCH: Afocal. Awake, alert, and oriented x3. Normal speech and interaction with medical staff. A/P Assessment and Plan Patient seen and examined. Case reviewed and discussed with the resident team. Agree with plan of care as discussed with me an documented in the resident note. Discharge Planning Pending clinical recommendations by pulmonology. Problem List: (1) Shortness of breath Status: Acute Plan: Patient presents with worsening shortness of breath. Differential includes COPD vs CHF vs others. When patient presented to the ED she was in acute respiratory distress with oxygen saturation in the 70s. She is currently stable on 4 L of nasal cannula. 2-D echo ordered: Left ventricular hypertrophy, ejection fraction of 55%, no wall motion abnormalities, mitral annular calcification, severe thickening of the aortic valve leaflets, mild aortic valve stenosis without regurgitation. BNP slightly elevated to 152, repeat 296 Furosemide 40 mg IV daily, additional dose received 01/21 Monitor electrolytes closely Chest x-ray concerning for pneumonia Stop Rocephin 1 g IV daily and azithromycin 500 mg Start Levaquin 750mg daily Albuterol prn SOB Methylprednisolone 60 mg IV Q6hrs discontinued Start steroid taper with Prednisone 60mg daily for 5 days with plans to taper dose by 10mg each successive 5 days Patient failed O2 walk test, recommend home oxygen for discharge Consult pulmonology, patient known to Dr. Castanon. Appreciate recommendations Imaging: Chest x-ray 01/20: Symmetric bilateral lower lung zone opacity, likely representing pulmonary edema. Focal 5 cm right upper lung zone opacity may represent consolidation or mass. Chest CT without contrast ordered for further evaluation Chest x-ray 01/21: Bilateral streaky interstitial opacities again noted on the right greater than left. Remains concern for pulmonary edema. There are thickening or fluid in the major fissure with no blunting of the costophrenic angles. VQ scan 01/22: Normal perfusion with markedly abnormal ventilation, consistent with coarse interstitial and alveolar opacities in both lungs. CT scan 01/22: Mild bilateral patchy pneumonia, mostly in the upper right lobe. Tiny bilateral pleural effusions. Coronary artery calcification. (2) COPD (chronic obstructive pulmonary disease) Status: Acute Plan: Patient reports that she was diagnosed with COPD in July. Continue home medications (per pt provided medication list): -Albuterol HFA -Brio -Titrate oxygen as needed -See plan above PFTs per EMR 07/12/16: FVC: 2.3 FEV:1 1.4 FEV1/FVC ratio: 59% Significantly positive response to bronchodilator treatment. Slow vital capacity 83% of predicted. T% Diffusion normal. Flow volume loop suggests airway obstruction. Blood gas: pH 7.43, PCO2 39, PO2 68 Impression: 1. Moderately severe airway obstruction 2. No evidence of restriction 3. Normal diffusion capacity 4. Adequate oxygenation and alveolar ventilation (3) HLD (hyperlipidemia) Status: Acute Plan: Continue home Statin (4) HTN (hypertension) Status: Acute Plan: Continue home vacations: lisinopril 10 mg daily metoprolol tartrate 12.5 mg BID (5) Atrial fibrillation Status: Acute Plan: Pt with history of atrial fibrillation. She takes Coumadin 5 mg po Daily. -INR supratherapeutic at 3.3 on admission, held on admission, currently therapeutic on Coumadin 7.5 mg daily -Continue rate control with metoprolol tartrate 12.5 mg PO BID -Rate currently well-controlled -Continue to monitor (6) Hypothyroidism Status: Acute Plan: TSH: 0.343 Continue levothyroxine 50 g per day, will confirm with patient if she has been compliant with medication before increasing dose (7) RA (rheumatoid arthritis) Status: Acute Plan: Hold home Tocilizumab Confirmed Methotrexate dose of 10mg SQ from Dr. Hillman's office, orders placed (8) FEN/PPX Status: Acute Plan: Fluids: None, pt with history of CHF avoid excess fluids Electrolytes: Within normal limits, continue to monitor Nutrition: Heart healthy Diet DVT PPX: Patient on warfarin, held, INR supratherapeutic at 3.3 on admission. GI PPX: Ezio Ngo MD R2 Jan 23, 2017 10:03
[2017-01-23 10:25] LABS: HEMATOCRIT 36.1 % (35.0-46.0); HEMO FLAGS DIFF FINAL; LYMPH % 2.2 % (9.0-44.0); LYMPHOCYTE # 0.4 TH/MM3 (1.0-4.8); MEAN CELL VOLUME 92.3 FL (80.0-100.0); MEAN CORPUSCULAR HEMOGLOBIN 30.6 PG (27.0-34.0); MEAN CORPUSCULAR HGB CONC 33.1 % (32.0-36.0); MONO % 2.6 % (0.0-8.0); NEUT % 95.2 % (16.0-70.0); PLATELET COUNT 194 TH/MM3 (150-450); RED BLOOD COUNT 3.91 MIL/MM3 (4.00-5.30); RED CELL DISTRIBUTION WIDTH 17.7 % (11.6-17.2); WHITE BLOOD COUNT 19.9 TH/MM3 (4.0-11.0)
[2017-01-23 10:40] LABS: BICARBONATE 27.3 MEQ/L (21.0-32.0); POTASSIUM 4.2 MEQ/L (3.5-5.1)
[2017-01-23] MEDS ORDERED: METHOTREXATE SOD PF 50 MG/2 ML VIAL SQ SCH (13:00)
[2017-01-23] MEDS ORDERED: METHOTREXATE SQ SCH (15:00)
[2017-01-23] MEDS ORDERED: PILL SPLITTER OTHER PRN (16:00)
[2017-01-23] MEDS: LEVOFLOXACIN 750 MG TAB PO SCH (16:15)
[2017-01-23] MEDS: WARFARIN SOD 7.5 MG TAB PO SCH (16:15)
--- NOTE | 2017-01-23 18:13 | HHI.PR ---
Subjective Remarks ALERT NO SOB AMBULATING Objective Vital Signs Date Time Temp Pulse Resp B/P Pulse Ox O2 Delivery O2 Flow Rate FiO2 01/23/17 16:00 97.6 72 20 122/85 93 01/23/17 12:00 97.8 74 20 118/53 95 01/23/17 09:23 67 01/23/17 09:23 Nasal Cannula 3.00 01/23/17 08:42 98 Nasal Cannula 2.00 01/23/17 08:00 97.6 76 20 120/55 93 01/23/17 04:00 Nasal Cannula 3.00 01/23/17 03:54 97.5 73 18 113/56 92 01/23/17 00:10 97.4 73 18 99/57 94 01/23/17 00:00 Nasal Cannula 3.00 01/22/17 21:39 69 01/22/17 21:14 97.5 75 18 120/60 96 01/22/17 20:00 Nasal Cannula 3.00 01/22/17 19:31 93 Nasal Cannula 2.00 I/O 01/22/17 01/22/17 01/22/17 01/23/17 01/23/17 01/23/17 06:59 14:59 22:59 06:59 14:59 22:59 Intake Total 1305 ml 206 ml Output Total 500 ml 800 ml Balance 805 ml -594 ml Intake Oral 1200 ml 200 ml IV Total 105 ml 6 ml Output Urine Total 500 ml 800 ml # Bowel Movements 1 0 Result Diagram: 01/23/1739 01/23/17 0939 Objective Remarks GENERAL: SKIN: Warm and dry. HEAD: Atraumatic. Normocephalic. EYES: Pupils equal and round. No scleral icterus. No injection or drainage. ENT: No nasal bleeding or discharge. Mucous membranes pink and moist. NECK: Trachea midline. No JVD. CARDIOVASCULAR: Regular rate and rhythm. RESPIRATORY: No accessory muscle use. Clear to auscultation. Breath sounds equal bilaterally. GASTROINTESTINAL: Abdomen soft, non-tender, nondistended. Hepatic and splenic margins not palpable. MUSCULOSKELETAL: Extremities without clubbing, cyanosis, or edema. No obvious deformities. NEUROLOGICAL: Awake and alert. No obvious cranial nerve deficits. Motor grossly within normal limits. Five out of 5 muscle strength in the arms and legs. Normal speech. PSYCHIATRIC: Appropriate mood and affect; insight and judgment normal. Assessment and Plan Assessment and Plan ASSESSMENT COPD EXACERBATION , IMPROVING RESPIRATORY FAILURE , ON O2 PLAN O2 NEEDED BRONCHODILATOR THERAPY INCREASE ACTIVITY Lg Castanon MD Jan 23, 2017 18:13
[2017-01-24] VITALS (8 sets, daily range): BP systolic 106–156; BP diastolic 56–67; PULSE 61–69; RESP 18; TEMP 97.3–97.7; O2SAT 94–98
[2017-01-24] MEDS: ALBUTEROL SULFATE 90 MCG/ACT HFA 18 GM INHALER INH SCH ×5 (00:06→23:25)
[2017-01-24] MEDS: RESP: ALBUTEROL 2.5 MG/IPRATROPIUM 0.5 MG NEB (SCH) INH ×6 (00:25→19:34)
[2017-01-24] MEDS: LEVOTHYROXINE SODIUM 50 MCG TAB PO SCH (05:41)
[2017-01-24] MEDS: FLUTICASONE 100 MCG/VILANTEROL 25 MCG INHALER INH SCH (09:50)
[2017-01-24] MEDS: SODIUM CHLORIDE 0.9% FLUSH 10 ML FLUSH IV FLUSH SCH ×2 (09:51→21:30)
[2017-01-24] MEDS: PRAVASTATIN SOD 40 MG TAB PO SCH (09:52)
[2017-01-24] MEDS: PYRIDOXINE HCL 50 MG TAB PO SCH (09:52)
[2017-01-24] MEDS: FOLIC ACID 1 MG TAB PO SCH (09:53)
[2017-01-24] MEDS: PANTOPRAZOLE SOD 40 MG DELAYED RELEASE TAB PO SCH (09:54)
[2017-01-24] MEDS: predniSONE 20 MG TAB PO SCH (09:54)
[2017-01-24] MEDS: LISINOPRIL 10 MG TAB PO SCH (09:55)
[2017-01-24] MEDS: CALCIUM/VITAMIN D 250 MG/125 U TAB PO SCH ×2 (09:56→21:29)
[2017-01-24] MEDS: FUROSEMIDE 40 MG/4 ML VIAL IV PUSH SCH (09:56)
[2017-01-24 10:46] LABS: MEAN CELL VOLUME 93.7 FL (80.0-100.0); MEAN CORPUSCULAR HEMOGLOBIN 30.1 PG (27.0-34.0); MEAN CORPUSCULAR HGB CONC 32.1 % (32.0-36.0); PLATELET COUNT 192 TH/MM3 (150-450); RED BLOOD COUNT 4.17 MIL/MM3 (4.00-5.30); RED CELL DISTRIBUTION WIDTH 17.6 % (11.6-17.2); REVIEW FLAG FINAL; WHITE BLOOD COUNT 15.9 TH/MM3 (4.0-11.0)
[2017-01-24 11:24] LABS: POTASSIUM 4.1 MEQ/L (3.5-5.1)
--- NOTE | 2017-01-24 14:14 | HHI.FPPN ---
Subjective Remarks Patient seen and examined this morning by medical team. Overnight patient had 22 beat run of asymptomatic ventricular tachycardia. Per nursing report she slept through the episode and denied any chest pain, dizziness, or palpitations. EKG was ordered and showed normal sinus rhythm. This morning she has no complaints. She states that she feels greater than 75% better and would like to return home. She failed her walk test yesterday and initially refused portable oxygen, however she has changed her mind and is open to having home oxygen. She denies any fevers, chills, shortness breath, chest pain, NVD, abdominal pain, or calf tenderness. (Ezio Ocasio MD R2) Objective Vitals Vital Signs Date Time Temp Pulse Resp B/P Pulse Ox O2 Delivery O2 Flow Rate FiO2 01/24/17 12:00 97.7 66 18 128/61 97 01/24/17 09:15 94 Nasal Cannula 2.00 01/24/17 08:00 97.4 63 18 156/67 96 01/24/17 07:20 Nasal Cannula 3.00 Humidified 01/24/17 05:15 97.3 67 18 106/59 98 01/24/17 04:00 Nasal Cannula 3.00 01/24/17 00:00 Nasal Cannula 3.00 01/23/17 23:03 97.7 69 18 117/59 94 01/23/17 21:00 97.5 69 16 131/60 93 01/23/17 20:18 71 01/23/17 20:03 96 Nasal Cannula 2.00 01/23/17 20:00 Nasal Cannula 3.00 01/23/17 16:00 97.6 72 20 122/85 93 I/O 01/23/17 01/23/17 01/23/17 01/24/17 01/24/17 01/24/17 07:00 15:00 23:00 07:00 15:00 23:00 Intake Total 206 ml 360 ml 248 ml Output Total 800 ml 600 ml 600 ml Balance -594 ml -240 ml -352 ml Intake Oral 200 ml 360 ml 240 ml IV Total 6 ml 8 ml Output Urine Total 800 ml 600 ml 600 ml # Bowel Movements 0 1 0 (Ezio Ocasio MD R2) Result Diagram: 01/24/17 1005 01/24/17 1005 Objective Remarks GENERAL: Well-nourished, well-developed female sitting up in her recliner in no acute distress. SKIN: Warm and dry. No rash. HEENT: Atraumatic, normocephalic with EOMI. MMM. No LAD or JVD appreciated. CARDIOVASCULAR: Regular rate and rhythm without obvious murmurs, gallops, or rubs. RESPIRATORY: Very fine bilateral basilar crackles appreciated on auscultation posteriorly, improved from prior exam. No increased work of breathing, but distant breath sounds. No wheezing. Currently on 3 L nasal cannula. GASTROINTESTINAL: Abdomen protuberant, soft, nontender with positive bowel sounds. No masses appreciated while examined in chair. MUSCULOSKELETAL: No cyanosis or edema. Strength grossly WNL. 2+ pulses in all 4 extremities. NEURO/PSYCH: Afocal. Awake, alert, and oriented x3. Normal speech and interaction with medical staff. (Ezio Ocasio MD R2) A/P Assessment and Plan Patient seen and examined. Case reviewed and discussed with the resident team. Agree with plan of care as discussed with me an documented in the resident note. Discharge Planning Pending clinical recommendations by pulmonology. (Ezio Ocasio MD R2) Assessment and Plan Patient seen and examined. Case reviewed and discussed with the resident team. Agree with plan of care as discussed with me and documented in the resident note. (Felipe Jacobson MD) Problem List: (1) Ventricular tachycardia, non-sustained Status: Acute Plan: Patient with overnight episode of 22 beats of ventricular tachycardia. Patient remained asymptomatic and denied any dizziness, chest pain, or palpitations. 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 Differential includes COPD vs CHF vs others. When patient presented to the ED she was in acute respiratory distress with oxygen saturation in the 70s. She is currently stable on 4 L of nasal cannula. 2-D echo ordered: Left ventricular hypertrophy, ejection fraction of 55%, no wall motion abnormalities, mitral annular calcification, severe thickening of the aortic valve leaflets, mild aortic valve stenosis without regurgitation. BNP slightly elevated to 152, repeat 296 Furosemide 40 mg IV daily, additional dose received 01/21 Monitor electrolytes closely Chest x-ray concerning for pneumonia Stop Rocephin 1 g IV daily and azithromycin 500 mg Start Levaquin 750mg daily Albuterol prn SOB Methylprednisolone 60 mg IV Q6hrs discontinued Start steroid taper with Prednisone 60mg daily for 5 days with plans to taper dose by 10mg each successive 5 days Patient failed O2 walk test, recommend home oxygen for discharge Consult pulmonology, patient known to Dr. Castanon. Appreciate recommendations Imaging: Chest x-ray 01/20: Symmetric bilateral lower lung zone opacity, likely representing pulmonary edema. Focal 5 cm right upper lung zone opacity may represent consolidation or mass. Chest CT without contrast ordered for further evaluation Chest x-ray 01/21: Bilateral streaky interstitial opacities again noted on the right greater than left. Remains concern for pulmonary edema. There are thickening or fluid in the major fissure with no blunting of the costophrenic angles. VQ scan 01/22: Normal perfusion with markedly abnormal ventilation, consistent with coarse interstitial and alveolar opacities in both lungs. CT scan 01/22: Mild bilateral patchy pneumonia, mostly in the upper right lobe. Tiny bilateral pleural effusions. Coronary artery calcification. (3) COPD (chronic obstructive pulmonary disease) Status: Acute Plan: Patient reports that she was diagnosed with COPD in July. Continue home medications (per pt provided medication list): -Albuterol HFA -Brio -Titrate oxygen as needed -See plan above PFTs per EMR 07/12/16: FVC: 2.3 FEV:1 1.4 FEV1/FVC ratio: 59% Significantly positive response to bronchodilator treatment. Slow vital capacity 83% of predicted. T% Diffusion normal. Flow volume loop suggests airway obstruction. Blood gas: pH 7.43, PCO2 39, PO2 68 Impression: 1. Moderately severe airway obstruction 2. No evidence of restriction 3. Normal diffusion capacity 4. Adequate oxygenation and alveolar ventilation (4) HLD (hyperlipidemia) Status: Acute Plan: Continue home Statin (5) HTN (hypertension) Status: Acute Plan: Continue home vacations: lisinopril 10 mg daily metoprolol tartrate 12.5 mg BID (6) Atrial fibrillation Status: Acute Plan: Pt with history of atrial fibrillation. She takes Coumadin 5 mg po Daily. -INR supratherapeutic at 3.3 on admission, held on admission, currently therapeutic on Coumadin 7.5 mg daily -Continue rate control with metoprolol tartrate 12.5 mg PO BID -Rate currently well-controlled -Continue to monitor (7) Hypothyroidism Status: Acute Plan: TSH: 0.343 Continue levothyroxine 50 g per day, will confirm with patient if she has been compliant with medication before increasing dose (8) RA (rheumatoid arthritis) Status: Acute Plan: Hold home Tocilizumab Confirmed Methotrexate dose of 10mg SQ from Dr. Hillman's office, orders placed (9) FEN/PPX Status: Acute Plan: Fluids: None, pt with history of CHF avoid excess fluids Electrolytes: Within normal limits, continue to monitor Nutrition: Heart healthy Diet DVT PPX: Patient on warfarin, held, INR supratherapeutic at 3.3 on admission. GI PPX: Protonix (Ezio Ocasio MD R2) Ezio Ocasio MD R2 Jan 24, 2017 14:14 Felipe Jacobson MD Jan 24, 2017 16:22
--- NOTE | 2017-01-24 14:53 | EKG ---
Date Performed: 01/24/2017 Time Performed: 06:29:20 PTAGE: 71 years EKG: Sinus rhythm Poor R wave progression - probable normal variant Borderline ECG PREVIOUS TRACING : 01/20/2017 17.57 Compared to prior tracing no significant change DOCTOR: Daniel Rojas Interpretating Date/Time 01/24/2017 14:52:06
[2017-01-24] MEDS: LEVOFLOXACIN 750 MG TAB PO SCH (17:36)
[2017-01-24] MEDS: WARFARIN SOD 7.5 MG TAB PO SCH (17:36)
--- NOTE | 2017-01-24 18:59 | HHI.PR ---
Subjective Remarks ALERT NO SOB AMBULATING Objective Vital Signs Date Time Temp Pulse Resp B/P Pulse Ox O2 Delivery O2 Flow Rate FiO2 01/24/17 16:00 97.7 61 18 121/56 96 01/24/17 12:00 97.7 66 18 128/61 97 01/24/17 09:15 94 Nasal Cannula 2.00 01/24/17 08:00 97.4 63 18 156/67 96 01/24/17 07:20 Nasal Cannula 3.00 Humidified 01/24/17 05:15 97.3 67 18 106/59 98 01/24/17 04:00 Nasal Cannula 3.00 01/24/17 00:00 Nasal Cannula 3.00 01/23/17 23:03 97.7 69 18 117/59 94 01/23/17 21:00 97.5 69 16 131/60 93 01/23/17 20:18 71 01/23/17 20:03 96 Nasal Cannula 2.00 01/23/17 20:00 Nasal Cannula 3.00 I/O 01/23/17 01/23/17 01/23/17 01/24/17 01/24/17 01/24/17 07:00 15:00 23:00 07:00 15:00 23:00 Intake Total 206 ml 360 ml 248 ml 720 ml Output Total 800 ml 600 ml 600 ml 2000 ml Balance -594 ml -240 ml -352 ml -1280 ml Intake Oral 200 ml 360 ml 240 ml 720 ml IV Total 6 ml 8 ml Output Urine Total 800 ml 600 ml 600 ml 2000 ml # Bowel Movements 0 1 0 1 Result Diagram: 01/24/17 1005 01/24/17 1005 Objective Remarks GENERAL: SKIN: Warm and dry. HEAD: Atraumatic. Normocephalic. EYES: Pupils equal and round. No scleral icterus. No injection or drainage. ENT: No nasal bleeding or discharge. Mucous membranes pink and moist. NECK: Trachea midline. No JVD. CARDIOVASCULAR: Regular rate and rhythm. RESPIRATORY: No accessory muscle use. Clear to auscultation. Breath sounds equal bilaterally. GASTROINTESTINAL: Abdomen soft, non-tender, nondistended. Hepatic and splenic margins not palpable. MUSCULOSKELETAL: Extremities without clubbing, cyanosis, or edema. No obvious deformities. NEUROLOGICAL: Awake and alert. No obvious cranial nerve deficits. Motor grossly within normal limits. Five out of 5 muscle strength in the arms and legs. Normal speech. PSYCHIATRIC: Appropriate mood and affect; insight and judgment normal. Assessment and Plan Assessment and Plan ASSESSMENT COPD EXACERBATION , IMPROVING RESPIRATORY FAILURE , ON O2 PLAN O2 NEEDED BRONCHODILATOR THERAPY INCREASE ACTIVITY may go home am if stable Lg Castanon MD Jan 24, 2017 18:59
[2017-01-25 00:15] VITALS: BP 118/68; PULSE 74; RESP 16; TEMP 97.6; O2SAT 100
[2017-01-25 04:00] VITALS: BP 146/65; PULSE 72; RESP 18; TEMP 97.4; O2SAT 98
[2017-01-25] MEDS: ALBUTEROL SULFATE 90 MCG/ACT HFA 18 GM INHALER INH SCH ×2 (05:09→11:45)
[2017-01-25] MEDS: LEVOTHYROXINE SODIUM 50 MCG TAB PO SCH (05:09)
[2017-01-25] MEDS ORDERED: OXYGENTANK NAS.CANULA (06:55)
[2017-01-25] MEDS ORDERED: PRED10 PO (07:04)
[2017-01-25] MEDS ORDERED: FLUT1INH INH (07:04)
[2017-01-25] MEDS ORDERED: VENTAER INH (07:04)
[2017-01-25] MEDS ORDERED: LEVA750T9 PO (07:04)
--- NOTE | 2017-01-25 07:05 | HHI.DCPOC ---
Discharge Care Plan Diagnosis: (1) COPD (chronic obstructive pulmonary disease) Goals to Promote Your Health * To prevent worsening of your condition and complications * To maintain your health at the optimal level Directions to Meet Your Goals Take your medications as prescribed Follow your dietary instruction Follow activity as directed Keep your appointments as scheduled Take your immunizations and boosters as scheduled If your symptoms worsen call your PCP, if no PCP go to Urgent Care Center or Emergency Room Smoking is Dangerous to Your Health. Avoid second hand smoke Call the 24-hour hour crisis hotline for domestic abuse at Ezio Ocasio MD R2 Jan 25, 2017 07:05
[2017-01-25 08:00] VITALS: BP 150/87; PULSE 62; PULSE 65; RESP 18; TEMP 97.6; O2SAT 94
[2017-01-25] MEDS: SODIUM CHLORIDE 0.9% FLUSH 10 ML FLUSH IV FLUSH SCH (08:30)
[2017-01-25] MEDS: FLUTICASONE 100 MCG/VILANTEROL 25 MCG INHALER INH SCH (08:30)
[2017-01-25] MEDS: FUROSEMIDE 40 MG/4 ML VIAL IV PUSH SCH (08:30)
[2017-01-25] MEDS: predniSONE 20 MG TAB PO SCH (08:31)
[2017-01-25] MEDS: CALCIUM/VITAMIN D 250 MG/125 U TAB PO SCH (08:31)
[2017-01-25] MEDS: LISINOPRIL 10 MG TAB PO SCH (08:31)
[2017-01-25] MEDS: PANTOPRAZOLE SOD 40 MG DELAYED RELEASE TAB PO SCH (08:32)
[2017-01-25] MEDS: PRAVASTATIN SOD 40 MG TAB PO SCH (08:32)
[2017-01-25] MEDS: PYRIDOXINE HCL 50 MG TAB PO SCH (08:32)
[2017-01-25] MEDS: FOLIC ACID 1 MG TAB PO SCH (08:32)
[2017-01-25 09:29] LABS: HEMATOCRIT 40.4 % (35.0-46.0); MEAN CELL VOLUME 94.8 FL (80.0-100.0); MEAN CORPUSCULAR HEMOGLOBIN 30.7 PG (27.0-34.0); MEAN CORPUSCULAR HGB CONC 32.3 % (32.0-36.0); PLATELET COUNT 210 TH/MM3 (150-450); RED BLOOD COUNT 4.26 MIL/MM3 (4.00-5.30); RED CELL DISTRIBUTION WIDTH 18.1 % (11.6-17.2); REVIEW FLAG FINAL; WHITE BLOOD COUNT 10.7 TH/MM3 (4.0-11.0)
[2017-01-25] MEDS ORDERED: METOPROLOL TARTRATE 25 MG TAB PO SCH (09:30)
[2017-01-25 09:38] LABS: INTERNATIONAL NORMALIZED RATIO 3.5 RATIO; PROTHROMBIN TIME - PATIENT 40.5 SEC (9.8-11.6)
[2017-01-25 10:27] LABS: POTASSIUM 4.1 MEQ/L (3.5-5.1)
[2017-01-25 12:00] VITALS: BP 166/70; PULSE 61; RESP 18; TEMP 98.1; O2SAT 92
[2017-01-25] MEDS ORDERED: WARF-23 PO (14:36)
[2017-01-25] MEDS: WARFARIN SOD 7.5 MG TAB PO SCH (15:46)
--- NOTE | 2017-01-25 18:33 | HHI.FPPN ---
Subjective Remarks No acute events overnight. Patient continues to request to go home. Pt is satisfied to go home with oxygen. Denies fever/chills overnight. Pt denies SOB/ CP/dizziness. Objective Vitals Vital Signs Date Time Temp Pulse Resp B/P Pulse Ox O2 Delivery O2 Flow Rate FiO2 01/25/17 12:00 98.1 61 18 166/70 92 01/25/17 08:00 65 01/25/17 08:00 Nasal Cannula 3.00 Humidified 01/25/17 08:00 97.6 62 18 150/87 94 01/25/17 04:00 97.4 72 18 146/65 98 01/25/17 04:00 Nasal Cannula 3.00 Humidified 01/25/17 00:15 97.6 74 16 118/68 100 01/25/17 00:00 Nasal Cannula 3.00 Humidified 01/24/17 21:30 Nasal Cannula 3.00 01/24/17 20:15 97.6 63 18 118/57 94 01/24/17 20:05 69 01/24/17 19:35 94 Nasal Cannula 2.00 I/O 01/24/17 01/24/17 01/24/17 01/25/17 01/25/17 01/25/17 07:00 15:00 23:00 07:00 15:00 23:00 Intake Total 248 ml 720 ml 360 ml 248 ml 2 ml Output Total 600 ml 2000 ml 450 ml 1000 ml Balance -352 ml -1280 ml -90 ml -752 ml 2 ml Intake Oral 240 ml 720 ml 360 ml 240 ml IV Total 8 ml 8 ml 2 ml Output Urine Total 600 ml 2000 ml 450 ml 1000 ml # Bowel Movements 0 1 1 0 Result Diagram: 01/25/1774001/25/17740 Objective Remarks GENERAL: Well-nourished, well-developed female walking around room in no acute distress SKIN: Warm and dry. No rash. HEENT: Atraumatic, normocephalic with EOMI. MMM. No LAD or JVD appreciated. CARDIOVASCULAR: Regular rate and rhythm without obvious murmurs, gallops, or rubs. RESPIRATORY: Very fine bilateral basilar crackles appreciated on auscultation posteriorly, improved from prior exam. No increased work of breathing, but distant breath sounds. No wheezing. Currently on 3 L nasal cannula. GASTROINTESTINAL: Abdomen protuberant, soft, nontender with positive bowel sounds. No masses appreciated while examined in chair. MUSCULOSKELETAL: No cyanosis or edema. Strength grossly WNL. 2+ pulses in all 4 extremities. NEURO/PSYCH: Afocal. Awake, alert, and oriented x3. Normal speech and interaction with medical staff. A/P Assessment and Plan Patient seen and examined. Case reviewed and discussed with the resident team. Agree with plan of care as discussed with me and documented in the resident note. Discharge Planning Pending clinical recommendations by pulmonology. Problem List: (1) Ventricular tachycardia, non-sustained Status: Acute Plan: Patient with overnight episode of 22 beats of ventricular tachycardia. Patient remained asymptomatic and denied any dizziness, chest pain, or palpitations. EKG: Normal sinus rhythm per medical team read - Cardiology consult: 22 beat of ventricular tachycardia is artifact. No need for follow-up. - Continue home medication metoprolol (2) Shortness of breath Status: Acute Plan: Patient presents with worsening shortness of breath. Differential includes COPD vs CHF vs others. When patient presented to the ED she was in acute respiratory distress with oxygen saturation in the 70s. She is currently stable on 4 L of nasal cannula. 2-D echo ordered: Left ventricular hypertrophy, ejection fraction of 55%, no wall motion abnormalities, mitral annular calcification, severe thickening of the aortic valve leaflets, mild aortic valve stenosis without regurgitation. BNP slightly elevated to 152, repeat 296 Furosemide 40 mg IV daily, additional dose received 01/21 Monitor electrolytes closely Chest x-ray concerning for pneumonia Stop Rocephin 1 g IV daily and azithromycin 500 mg Start Levaquin 750mg daily Albuterol prn SOB Methylprednisolone 60 mg IV Q6hrs discontinued Start steroid taper with Prednisone 60mg daily for 5 days with plans to taper dose by 10mg each successive 5 days Patient failed O2 walk test, recommend home oxygen for discharge Consult pulmonology, patient known to Dr. Castanon. Appreciate recommendations Imaging: Chest x-ray 01/20: Symmetric bilateral lower lung zone opacity, likely representing pulmonary edema. Focal 5 cm right upper lung zone opacity may represent consolidation or mass. Chest CT without contrast ordered for further evaluation Chest x-ray 01/21: Bilateral streaky interstitial opacities again noted on the right greater than left. Remains concern for pulmonary edema. There are thickening or fluid in the major fissure with no blunting of the costophrenic angles. VQ scan 01/22: Normal perfusion with markedly abnormal ventilation, consistent with coarse interstitial and alveolar opacities in both lungs. CT scan 01/22: Mild bilateral patchy pneumonia, mostly in the upper right lobe. Tiny bilateral pleural effusions. Coronary artery calcification. (3) COPD (chronic obstructive pulmonary disease) Status: Acute Plan: Patient reports that she was diagnosed with COPD in July. Continue home medications (per pt provided medication list): -Albuterol HFA -Brio -Titrate oxygen as needed -See plan above PFTs per EMR 07/12/16: FVC: 2.3 FEV:1 1.4 FEV1/FVC ratio: 59% Significantly positive response to bronchodilator treatment. Slow vital capacity 83% of predicted. T% Diffusion normal. Flow volume loop suggests airway obstruction. Blood gas: pH 7.43, PCO2 39, PO2 68 Impression: 1. Moderately severe airway obstruction 2. No evidence of restriction 3. Normal diffusion capacity 4. Adequate oxygenation and alveolar ventilation (4) HLD (hyperlipidemia) Status: Acute Plan: Continue home Statin (5) HTN (hypertension) Status: Acute Plan: Continue home vacations: lisinopril 10 mg daily metoprolol tartrate 12.5 mg BID (6) Atrial fibrillation Status: Acute Plan: Pt with history of atrial fibrillation. She takes Coumadin 5 mg po Daily. -INR supratherapeutic at 3.5, hold dose of warfarin today -Continue rate control with metoprolol tartrate 12.5 mg PO BID -Rate currently well-controlled - Beginning tomorrow start home regimen of warfarin 5 mg pills as following: Warfarin 5 mg on Wednesdays and Fridays, with 7.5 mg the rest of the days of the week - Patient demonstrates understanding of this plan and agrees to go to scheduled INR clinic appointment on 01/30 (7) Hypothyroidism Status: Acute Plan: TSH: 0.343 Continue levothyroxine 50 g per day, will confirm with patient if she has been compliant with medication before increasing dose (8) RA (rheumatoid arthritis) Status: Acute Plan: Hold home Tocilizumab Confirmed Methotrexate dose of 10mg SQ from Dr. Hillman's office, orders placed (9) FEN/PPX Status: Acute Plan: Fluids: None, pt with history of CHF avoid excess fluids Electrolytes: Within normal limits, continue to monitor Nutrition: Heart healthy Diet DVT PPX: see section above GI PPX: Rita Sanderson MD R2 Jan 25, 2017 18:33
--- NOTE | 2017-01-29 12:09 | HHI.FF ---
Face to Face Verification Diagnosis: (1) COPD (chronic obstructive pulmonary disease) Home Health Nursing Order: Medical education Signs/symptoms of disease process Oxygen administration education Medication education-adverse effect I have seen patient Jennifer Ocasio on 01/29/17. My clinical findings support the need for the requested home health care services because: Ltd mobility - disease progression Patient has SOB Deconditioned w/ increased weakness I certify that my clinical findings support that this patient is homebound because: Hx COPD- exertion dyspnea/weakness Unsteady gait/balance Patient recommended outpatient cardiac rehab by PT. Ezio Ocasio MD R2 Jan 29, 2017 12:09
[2017-01-31] MEDS ORDERED: Portable Oxygen (14:41)
--- NOTE | 2017-01-31 23:25 | HHI.DS ---
Discharge Summary Admission Date Jan 20, 2017 at 18:48 Discharge Date: Jan 25, 2017 Admitting Diagnosis acute hypoxic resp failure, exac of CHF (1) Ventricular tachycardia, non-sustained Plan: Patient with overnight episode of 22 beats of ventricular tachycardia. Patient remained asymptomatic and denied any dizziness, chest pain, or palpitations. EKG: Normal sinus rhythm per medical team read - Cardiology consult: 22 beat of ventricular tachycardia is artifact. No need for follow-up. - Continue home medication metoprolol ICD Codes: I47.2 - Ventricular tachycardia Status: Acute (2) Shortness of breath Plan: Patient presents with worsening shortness of breath. Differential includes COPD vs CHF vs others. When patient presented to the ED she was in acute respiratory distress with oxygen saturation in the 70s. She is currently stable on 4 L of nasal cannula. 2-D echo ordered: Left ventricular hypertrophy, ejection fraction of 55%, no wall motion abnormalities, mitral annular calcification, severe thickening of the aortic valve leaflets, mild aortic valve stenosis without regurgitation. BNP slightly elevated to 152, repeat 296 Furosemide 40 mg IV daily, additional dose received 01/21 Monitor electrolytes closely Chest x-ray concerning for pneumonia Stop Rocephin 1 g IV daily and azithromycin 500 mg Start Levaquin 750mg daily Albuterol prn SOB Methylprednisolone 60 mg IV Q6hrs discontinued Start steroid taper with Prednisone 60mg daily for 5 days with plans to taper dose by 10mg each successive 5 days Patient failed O2 walk test, recommend home oxygen for discharge Consult pulmonology, patient known to Dr. Castanon. Appreciate recommendations Imaging: Chest x-ray 01/20: Symmetric bilateral lower lung zone opacity, likely representing pulmonary edema. Focal 5 cm right upper lung zone opacity may represent consolidation or mass. Chest CT without contrast ordered for further evaluation Chest x-ray 01/21: Bilateral streaky interstitial opacities again noted on the right greater than left. Remains concern for pulmonary edema. There are thickening or fluid in the major fissure with no blunting of the costophrenic angles. VQ scan 01/22: Normal perfusion with markedly abnormal ventilation, consistent with coarse interstitial and alveolar opacities in both lungs. CT scan 01/22: Mild bilateral patchy pneumonia, mostly in the upper right lobe. Tiny bilateral pleural effusions. Coronary artery calcification. ICD Codes: R06.02 - Shortness of breath Status: Acute (3) COPD (chronic obstructive pulmonary disease) Plan: Patient reports that she was diagnosed with COPD in July. Continue home medications (per pt provided medication list): -Albuterol HFA -Brio -Titrate oxygen as needed -See plan above PFTs per EMR 07/12/16: FVC: 2.3 FEV:1 1.4 FEV1/FVC ratio: 59% Significantly positive response to bronchodilator treatment. Slow vital capacity 83% of predicted. T% Diffusion normal. Flow volume loop suggests airway obstruction. Blood gas: pH 7.43, PCO2 39, PO2 68 Impression: 1. Moderately severe airway obstruction 2. No evidence of restriction 3. Normal diffusion capacity 4. Adequate oxygenation and alveolar ventilation ICD Codes: J44.9 - Chronic obstructive pulmonary disease, unspecified Status: Acute (4) HLD (hyperlipidemia) Plan: Continue home Statin ICD Codes: E78.5 - Hyperlipidemia, unspecified Status: Acute (5) HTN (hypertension) Plan: Continue home vacations: lisinopril 10 mg daily metoprolol tartrate 12.5 mg BID ICD Codes: I10 - Essential (primary) hypertension Status: Acute (6) Atrial fibrillation Plan: Pt with history of atrial fibrillation. She takes Coumadin 5 mg po Daily. -INR supratherapeutic at 3.5, hold dose of warfarin today -Continue rate control with metoprolol tartrate 12.5 mg PO BID -Rate currently well-controlled - Beginning tomorrow start home regimen of warfarin 5 mg pills as following: Warfarin 5 mg on Wednesdays and Fridays, with 7.5 mg the rest of the days of the week - Patient demonstrates understanding of this plan and agrees to go to scheduled INR clinic appointment on 01/30 ICD Codes: I48.91 - Unspecified atrial fibrillation Status: Acute (7) Hypothyroidism Plan: TSH: 0.343 Continue levothyroxine 50 g per day, will confirm with patient if she has been compliant with medication before increasing dose ICD Codes: E03.9 - Hypothyroidism, unspecified Status: Acute (8) RA (rheumatoid arthritis) Plan: Hold home Tocilizumab Confirmed Methotrexate dose of 10mg SQ from Dr. Hillman's office, orders placed ICD Codes: M06.9 - Rheumatoid arthritis Status: Acute (9) FEN/PPX Plan: Fluids: None, pt with history of CHF avoid excess fluids Electrolytes: Within normal limits, continue to monitor Nutrition: Heart healthy Diet DVT PPX: see section above GI PPX: Protonix Status: Acute Brief History Patient is a 71-year-old female with history of atrial fibrillation, COPD presenting due to shortness of breath. Today patient was brought to an urgent care facility by her daughter who was concerned about her acutely worsening shortness of breath. She had an x-ray done and was told that she had pneumonia and told to go to the ED. Patient reports that over the past several days she has become increasingly more short of breath. She reports that her breathing was at its worst on . She notes that while walking from her car into the [facility] she had to stop and rest due to shortness of breath. She reports that after resting her breathing improved. Breathing is worse with activity, but improves when she is swimming in the pool. Breathing is also relieved by resting. She denies increase in fluid intake over the past several days. She endorses a productive cough, sputum is brown/yellow in color. She denies fevers, chills, chest pain, abdominal pain. Patient reports that she was diagnosed with COPD and July and she is followed by Dr. Cadet. She endorses lower extremity edema that is stable, no recent increase in swelling. PE at Discharge GENERAL: Well-nourished, well-developed female walking around room in no acute distress SKIN: Warm and dry. No rash. HEENT: Atraumatic, normocephalic with EOMI. MMM. No LAD or JVD appreciated. CARDIOVASCULAR: Regular rate and rhythm without obvious murmurs, gallops, or rubs. RESPIRATORY: Very fine bilateral basilar crackles appreciated on auscultation posteriorly, improved from prior exam. No increased work of breathing, but distant breath sounds. No wheezing. Currently on 3 L nasal cannula. GASTROINTESTINAL: Abdomen protuberant, soft, nontender with positive bowel sounds. No masses appreciated while examined in chair. MUSCULOSKELETAL: No cyanosis or edema. Strength grossly WNL. 2+ pulses in all 4 extremities. NEURO/PSYCH: Afocal. Awake, alert, and oriented x3. Normal speech and interaction with medical staff. Hospital Course Patient is a 71-year-old female with history of atrial fibrillation, COPD, and sleep apnea, presenting to the ED due to shortness of breath and found to be in acute respiratory distress with O2 sats in the 70s and rate well- controlled. Oxygen sats improved with nasal cannula. Chest x-ray: Symmetric bilateral lower lung zone opacity, likely representing pulmonary edema ( concerning for pneumonia) and pt placed on Rocephin, Azithromycin, and Methylprednisolone. CT scan 01/22: Mild bilateral patchy pneumonia, mostly in the upper right lobe. Tiny bilateral pleural effusions. 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 Pt was continued on home medications for COPD and d/c on Levaquin 750daily with prednisone taper for 10 days. Pt failed walk test and went home with home O2. INR was found to be supratherapeutic at 3.3 during the hospitalization course and dosing was titrated appropriately. Pt Condition on Discharge: Stable Discharge Disposition: Discharge Home Discharge Instructions DIET: Follow Instructions for: Coumadin (Warfarin) Diet Activities you can perform: Regular-No Restrictions, See Additionl Instruction Activities to Avoid: Strenuous Activity Other Activity Instructions: Please do activity as tolerated, and stop activity if experiencing shortness of breath/chest pain/dizziness. Avoid strenuous activity until next appointment with your PCP. Rita Poole MD R2 Jan 31, 2017 23:25
[2017-02-07] MEDS ORDERED: ASPI81CH CHEW (15:12)
[2017-02-07] MEDS ORDERED: SYMB160A INH (15:12)
[2017-02-07] MEDS ORDERED: FURO1TAB62 PO (15:12)
[2017-02-07] MEDS ORDERED: PROC2.5C RECTAL (15:12)
[2017-02-07] MEDS ORDERED: NYST1000 SWISH-SWAL (15:19)
[2017-02-08] MEDS ORDERED: WARF-23 PO (06:49)
== END 2017-01-25 17:39 | disposition home or self-care (01) | DRG 191 ==
LOC: NEPE 17:38 → NEDA 18:48 → N04B 22:22
PROVIDERS: ADMIT Family Medicine; ATTEND Family Medicine
DX: J44.1 Chronic obstructive pulmonary disease with (acute) exacerbation (principal); I47.2 Ventricular tachycardia; I50.9 Heart failure, unspecified; I48.91 Unspecified atrial fibrillation; Z68.41 Body mass index [BMI] 40.0-44.9, adult; E78.5 Hyperlipidemia, unspecified; G47.33 Obstructive sleep apnea (adult) (pediatric); E03.9 Hypothyroidism, unspecified; I10 Essential (primary) hypertension; M06.9 Rheumatoid arthritis, unspecified; Z87.891 Personal history of nicotine dependence; Z79.01 Long term (current) use of anticoagulants; K21.9 Gastro-esophageal reflux disease without esophagitis; E66.3 Overweight; R06.00 Dyspnea, unspecified
CPT/HCPCS: 71010; 71020; 71250; 76937; 78582; 80048; 80053; 82550; 82552; 83880; 84443; 84484; 85025; 85027; 85610; 85730; 93005; 93306; 94150; 94620; 94640; 94664; 94667; 94668; 96374; 96375; A9540; A9567; J0696; J1940; J2930; J7512; J9250

== ENCOUNTER 2017-02-26 07:41 | Inpatient (IN) | payer MEDICARE ==
[~2017-02-26] VITALS: Ht 162.6 cm; Wt 115.4 kg
[2017-02-26] VITALS (22 sets, daily range): BP systolic 81–116; BP diastolic 42–70; PULSE 70–103; RESP 18–24; TEMP 98.2–99.3; O2SAT 3–100
[~2017-02-26 07:41] MED LIST changes: +ASPI81CH CHEW; +FLUT1INH INH; -FURO1TAB60 PO; +FURO1TAB62 PO; +LISI10TA3 PO; -METO25TA3 PO; +NYST1000 SWISH-SWAL; +OXYGENTANK NAS.CANULA; +PRED10 PO; +PROC2.5C RECTAL; +Portable Oxygen; -SILV1CRE80 TOPICAL; -SYMB80AE INH; +VENTAER INH
[2017-02-26] MEDS ORDERED: CALC1TAB87 PO (08:22)
[2017-02-26] MEDS ORDERED: OMEP10CA PO (08:22)
[2017-02-26] MEDS ORDERED: PANTOPRAZOLE INJ 80 MG in SODIUM CHLORIDE 0.9% INJ 100 ML IV SCH (09:04)
[2017-02-26] MEDS ORDERED: PANTOPRAZOLE INJ 80 MG in SODIUM CHLORIDE 0.9% INJ 35 ML IV ONE (09:04)
[2017-02-26] MEDS ORDERED: SODIUM CHLOR 0.9% 1000 ML INJ 1,000 ML IV SCH (09:04)
--- NOTE | 2017-02-26 09:10 | PD ---
HPI . Generalized weakness Chief Complaint: Respiratory Symptoms Time Seen by Provider: 09:04 Travel History International Travel<30 days: No Contact w/Intl Traveler<30days: No Traveled to known affect area: No History of Present Illness HPI This patient presents with the chief complaint of generalized weakness. Onset was one week ago. Symptoms have been getting progressively worse. She developed increased shortness of breath last night. In addition, she states that she has been passing black stools for the last couple days and has had leading skin lesions that were difficult to control. She is also had a couple of nosebleeds. She denies any associated abdominal pain. She denies any nausea or vomiting. She has not noted any exacerbating or relieving factors. She reports that her symptoms today are severe. PFSH Past Medical History Arthritis: Yes Blood Disorders: No Heart Rhythm Problems: Yes (ATRIAL FIB/FLUTTER ) Cancer: No Cardiovascular Problems: Yes (ATRIAL FIBULATION/FLUTTER ,HEART CATH/TIAS) High Cholesterol: Yes Chest Pain: No Congestive Heart Failure: No COPD: Yes Cerebrovascular Accident: Yes (TIA'S MULTIPLE IN PAST) Coronary Artery Disease: No Diabetes: No Endocrine: No Gastrointestinal Disorders: No Genitourinary: No Hypertension: Yes Immune Disorder: No Implanted Vascular Access Dvce: No Musculoskeletal: Yes (arthritis rheumatoic ) Neurologic: Yes (RA) Psychiatric: No Reproductive: No Respiratory: No Migraines: No Seizures: No Sleep Apnea: Yes Thyroid Disease: Yes Menopausal: Yes Past Surgical History Abdominal Surgery: No Cardiac Surgery: No Cholecystectomy: Yes (2002) Ear Surgery: No Endocrine Surgery: No Eye Surgery: No Genitourinary Surgery: No Gynecologic Surgery: No Oral Surgery: No Thoracic Surgery: No Other Surgery: Yes Social History Alcohol Use: No Tobacco Use: No Substance Use: No Allergies-Medications (Allergen,Severity, Reaction): Coded Allergies: No Known Allergies (Verified , 02/26/17) Reported Meds & Prescriptions Reported Meds & Active Scripts Active Warfarin 5 Mg Tab 5 Mg PO DAILY 5 days a week, pt is to take 10mg and 2 days a week, pt is to take 7.5mg [Portable Oxygen] Unit CONTINUOUS Ventolin Hfa 18 GM Inh (Albuterol Sulfate) 90 Mcg/Act Aer 2 Puff INH Q6HR Breo Ellipta Inh (Fluticasone/Vilanterol) 100-25 Mcg/Act Inh 1 Puff INH DAILY Oxygen tank (Oxygen) 1 Ea Tank 2 Liter NO.CANULA CONTINUOUS Oxygen Concentrator Portable Gaseous 2 L/min via Nasal Cannula Continuous For 99 months Pravastatin 40 Mg Tab 40 Mg PO DAILY Reported Omeprazole 10 Mg Cap 10 Mg PO DAILY Calcium 600 with Vitamin D (Calcium Carbonate-Cholecalciferol) 600-400 mg-Unit Tab 1 Tab PO DAILY Proctosol Hc 2.5% (Hydrocortisone Rectal 2.5%) 2.5% Cream 1 Applic RECTAL BID PRN Lasix (Furosemide) 20 Mg Tab 20 Mg PO DAILY Aspirin 81 Mg Chew 81 Mg CHEW DAILY Lisinopril 10 Mg Tab 10 Mg PO DAILY Magnesium Oxide 250 Mg Tab Methotrexate Inj 50 Mg/2 Ml Inj Actemra Inj (Tocilizumab Inj) 162 Mg/0.9 Ml Inj Folic Acid 400 Mcg Tab 400 Mcg PO DAILY Levothyroxine (Levothyroxine Sodium) 50 Mcg Tab 50 Mcg PO DAILY Review of Systems Except as stated in HPI: all other systems reviewed are Neg General / Constitutional: No: Fever, Chills Eyes: No: Blurred Vision HENT: No: Headaches Cardiovascular: No: Chest Pain or Discomfort Respiratory: Positive: Shortness of Breath Gastrointestinal: Positive: Other (dark stools), No: Nausea, Vomiting, Diarrhea , Abdominal Pain Neurologic: Positive: Weakness Hematologic/Lymphatic: Positive: Easy Bruising, Other (easy bleeding) Physical Exam Narrative GENERAL: The patient is moaning continuously. SKIN: warm/dry. Skin is pale. HEAD: Normocephalic. Atraumatic. EYES: Pupils equal and round. No scleral icterus. No injection or drainage. ENT: No nasal bleeding or discharge. Mucous membranes pink and moist. NECK: Trachea midline. Full range of motion without pain.. CARDIOVASCULAR: Regular rate and rhythm. Heart sounds normal. RESPIRATORY: No accessory muscle use. Clear to auscultation. Breath sounds equal bilaterally. GASTROINTESTINAL: Abdomen soft. Nontender. Bowel sounds present. Nondistended. RECTAL: No hemorrhoids noted. Dark stool in the rectal vault. No masses. MUSCULOSKELETAL: No obvious deformities. NEUROLOGICAL: Awake and alert. No obvious cranial nerve deficits. Motor grossly within normal limits. Normal speech. PSYCHIATRIC: Appropriate mood and affect; insight and judgment normal. Data Data Last Documented VS Vital Signs Date Time Temp Pulse Resp B/P (MAP) Pulse Ox O2 Delivery O2 Flow Rate FiO2 9/18/17 09:28 97 Nasal Cannula 2.00 02/26/17 08:09 92 22 02/26/17 07:43 98.6 Orders Orders Electrocardiogram (02/26/17 ) Complete Blood Count With Diff (02/26/17 09:04) Comprehensive Metabolic Panel (02/26/17 09:04) Prothrombin Time / Inr (Pt) (02/26/17 09:04) Urinalysis - C+S If Indicated (02/26/17 09:04) Type And Screen (02/26/17 09:04) Chest, Single Ap (02/26/17 09:04) Ecg Monitoring (02/26/17 09:04) Iv Access Insert/Monitor (02/26/17 09:04) Oximetry (02/26/17 09:04) Oxygen Administration (02/26/17 09:04) Ondansetron Inj (Zofran Inj) (02/26/17 09:15) Sodium Chlor 0.9% 1000 Ml Inj (Ns 1000 M (02/26/17 09:04) Sodium Chloride 0.9% Flush (Ns Flush) (02/26/17 09:15) Sodium Chloride 0.9... W/Pantoprazole In (02/26/17 09:04) Sodium Chloride 0.9... W/Pantoprazole In (02/26/17 09:04) Phytonadione Inj (Vitamin K Inj) (02/26/17 09:45) Red Blood Cells (Rbc) (02/26/17 09:43) Blood Product Administration (02/26/17 09:43) Sodium Chlor 0.9% 250 Ml Inj (Ns 250 Ml (02/26/17 09:45) Diphenhydramine (Benadryl) (02/26/17 09:45) Diphenhydramine (Benadryl) (02/26/17 09:45) Acetaminophen (Tylenol) (02/26/17 09:45) Acetaminophen (Tylenol) (02/26/17 09:45) Labs Laboratory Tests Test 02/26/17 09:10 02/26/17 09:30 White Blood Count 14.3 TH/MM3 Red Blood Count 2.04 MIL/MM3 Hemoglobin 6.2 GM/DL Hematocrit 19.2 % Mean Corpuscular Volume 93.9 FL Mean Corpuscular Hemoglobin 30.3 PG Mean Corpuscular Hemoglobin Concent 32.2 % Red Cell Distribution Width 17.3 % Platelet Count 152 TH/MM3 Mean Platelet Volume 8.7 FL Neutrophils (%) (Auto) 85.4 % Lymphocytes (%) (Auto) 5.5 % Monocytes (%) (Auto) 7.8 % Eosinophils (%) (Auto) 0.9 % Basophils (%) (Auto) 0.4 % Neutrophils # (Auto) 12.2 TH/MM3 Lymphocytes # (Auto) 0.8 TH/MM3 Monocytes # (Auto) 1.1 TH/MM3 Eosinophils # (Auto) 0.1 TH/MM3 Basophils # (Auto) 0.1 TH/MM3 CBC Comment AUTO DIFF Prothrombin Time 73.7 SEC Prothromb Time International Ratio 6.2 RATIO Blood Urea Nitrogen 52 MG/DL Creatinine 1.21 MG/DL Random Glucose 154 MG/DL Total Protein 5.1 GM/DL Albumin 2.5 GM/DL Calcium Level 8.7 MG/DL Alkaline Phosphatase 42 U/L Aspartate Amino Transf (AST/SGOT) 14 U/L Alanine Aminotransferase (ALT/SGPT) 24 U/L Total Bilirubin 0.3 MG/DL Carbon Dioxide Level 24.4 MEQ/L Estimat Glomerular Filtration Rate 44 ML/MIN MDM Medical Decision Making Medical Screen Exam Complete: Yes Emergency Medical Condition: Yes Medical Record Reviewed: Yes (patient was noted here from for respiratory distress. She was treated for pneumonia and COPD exacerbation with antibiotics and steroids. She was discharged on home oxygen. Other medical conditions include hypertension, hyperlipidemia, atrial fibrillation on Coumadin and rheumatoid arthritis.) Interpretation(s) EKG shows a sinus rhythm with a rate of 92. No ST segment elevation or depression. Differential Diagnosis Differential diagnosis of weakness includes but is not limited to infection, CVA , electrolyte disturbance, renal failure, hypoglycemia, UTI, ACS, acute blood loss Narrative Course This patient presents with a weeklong history of weakness. She is now passing black, tarry stools and is having shortness of breath. The most likely cause of her symptoms as a GI bleed. I have initiated IV fluids and IV Protonix. A type and screen has been ordered. Basic lab work is pending. Last Impressions Chest X-Ray 02/26/17 0904 Signed Impressions: Service Date/Time: Sunday, February 26, 2017 09:11 - CONCLUSION: 1. COPD changes. Tal Nur MD CBC Diagram 02/26/17 09:10 INR 6.2 A type and cross for 2 units has been ordered. Vitamin K has also been ordered. I will discuss FFP with the admitting doctor. [facility] has been consult. Critical Care Narrative Aggregate critical care time was 45 minutes. Time to perform other separately billable procedures was not included in the critical care time. My time did not include minutes spent treating any other patients simultaneously or on activities that did not directly contribute to the patient's treatment. The services I provided to this patient were to treat and/or prevent clinically significant deterioration due to GI bleed, anemia, warfarin induced coagulopathy. I provided critical care services requiring my management, as noted below: Chart data review, documentation time, medication orders and management, vital sign assessments/reviewing monitor data, ordering and reviewing lab tests, ordering and interpreting/reviewing x-rays and diagnostic studies, care of the patient and discussion of the patient with the admitting physicians Hema[employer]pt Point of Care Internal Pos. & Neg. Controls: Passed Fecal Specimen Occult Blood: Positive Physician Communication Physician Communication Dr. Ascencio. He does not recommend FFP at this time as the patient is not actively bleeding. Diagnosis Primary Impression: Warfarin-induced coagulopathy Additional Impressions: GI bleed Qualified Codes: K92.2 - Gastrointestinal hemorrhage, unspecified Anemia Qualified Codes: D62 - Acute posthemorrhagic anemia Admitting Information Admitting Physician Requests: Admit Condition: Ginny Armstrong MD Feb 26, 2017 09:10
[2017-02-26] MEDS ORDERED: SODIUM CHLORIDE 0.9% FLUSH 10 ML FLUSH IVF PRN (09:15)
[2017-02-26] MEDS ORDERED: ONDANSETRON HCL 4 MG/2 ML VIAL IVP ONE (09:15)
[2017-02-26 09:31] LABS: AUTOMATED NEUTROPHIL # 12.2 TH/MM3 (1.8-7.7); BASOPHIL # 0.1 TH/MM3 (0-0.2); BASOPHIL % 0.4 % (0.0-2.0); EOSINOPHIL # 0.1 TH/MM3 (0-0.4); EOSINOPHIL % 0.9 % (0.0-4.0); LYMPH % 5.5 % (9.0-44.0); LYMPHOCYTE # 0.8 TH/MM3 (1.0-4.8); MEAN CELL VOLUME 93.9 FL (80.0-100.0); MEAN CORPUSCULAR HEMOGLOBIN 30.3 PG (27.0-34.0); MEAN CORPUSCULAR HGB CONC 32.2 % (32.0-36.0); MONO % 7.8 % (0.0-8.0); NEUT % 85.4 % (16.0-70.0); PLATELET COUNT 152 TH/MM3 (150-450); RED BLOOD COUNT 2.04 MIL/MM3 (4.00-5.30); RED CELL DISTRIBUTION WIDTH 17.3 % (11.6-17.2); WHITE BLOOD COUNT 14.3 TH/MM3 (4.0-11.0)
--- NOTE | 2017-02-26 09:31 | RADRPT ---
EXAM DATE/TIME: 02/26/2017 09:11 [facility] COMPARISON: CHEST PA & LAT, January 21, 2017, 10:00. INDICATIONS : Shortness of breath. MEDICAL HISTORY : Hypertension. Chronic obstructive pulmonary disease. Arthritis. SURGICAL HISTORY : None. ENCOUNTER: Initial ACUITY: 1 week PAIN SCORE: 0/10 LOCATION: Bilateral chest FINDINGS: The heart is normal in size. There diffuse chronic interstitial changes suggesting COPD. No pleural e ffusion is present. The lungs are improved in appearance when compared to previous dated 01/21/17. CONCLUSION: 1. COPD changes. Tal Nur MD on February 26, 2017 at 9:29 Board Certified Radiologist. This report was verified electronically.
[2017-02-26 09:33] LABS: HEMO FLAGS AUTO DIFF
[2017-02-26 09:36] LABS: HEMATOCRIT 19.2 % (35.0-46.0)
[2017-02-26 09:38] LABS: PROTHROMBIN TIME - PATIENT 73.7 SEC (9.8-11.6)
[2017-02-26 09:43] LABS: INTERNATIONAL NORMALIZED RATIO 6.2 RATIO
[2017-02-26] MEDS ORDERED: PHYTONADIONE 10 MG/ML VIAL SQ ONE (09:45)
[2017-02-26] MEDS ORDERED: diphenhydrAMINE HCL 25 MG CAP PO ONE (09:45)
[2017-02-26] MEDS ORDERED: ACETAMINOPHEN 325 MG TAB PO PRN (09:45)
[2017-02-26] MEDS ORDERED: SODIUM CHLOR 0.9% 250 ML INJ 250 ML IV ONE ×4 (09:45→23:45)
[2017-02-26] MEDS ORDERED: ACETAMINOPHEN 325 MG TAB PO ONE (09:45)
[2017-02-26] MEDS ORDERED: diphenhydrAMINE HCL 25 MG CAP PO PRN (09:45)
[2017-02-26 09:52] LABS: AST (GOT) 14 U/L (15-37); BICARBONATE 24.4 MEQ/L (21.0-32.0); BLOOD UREA NITROGEN 52 MG/DL (7-18); GLOMERULAR FILTRATION RATE 44 ML/MIN (>89)
[2017-02-26 09:53] LABS: BACTERIA, URINE OCC /hpf; BLOOD, URINE SMALL (NEG); GLUCOSE,URINE NEG (NEG); HYALINE CAST, URINE 1 /lpf (RARE); KETONE, URINE NEG (NEG); MUCUS URINE FEW /lpf (OCC); NITRITE,URINE NEG (NEG); TRANSITIONAL EPI CELLS, URINE <1 /hpf; URINE COLOR YELLOW (YELLW/STRAW)
[2017-02-26 09:56] LABS: ALKALINE PHOSPHATASE 42 U/L (45-117); ALT (GPT) 24 U/L (10-53); TOTAL BILIRUBIN ADULT 0.3 MG/DL (0.2-1.0)
[2017-02-26 09:58] LABS: COMMENT (UR) CULTURE INDICATED; CULTURE IF INDICATED CULTURE INDICATED
[2017-02-26 10:05] LABS: ANION GAP 8 MEQ/L (5-15); CHLORIDE 104 MEQ/L (98-107); POTASSIUM 4.7 MEQ/L (3.5-5.1); SODIUM (NA) 136 MEQ/L (136-145)
[2017-02-26 10:18] LABS: BANDS 5 % (0-6); BASOPHILS 1 % (0-2); CORRECTED NUCLEATED RBC 1 /100 WBC (0-0); NEUTROPHIL # MANUAL DIFF 13.2 TH/MM3 (1.8-7.7); POLYS (SEG NEUTROPHILS) 87 % (16-70); WBC DIFF SAMPLE 100
[2017-02-26 10:19] LABS: PLATELET ESTIMATE SMEAR NORMAL (NORMAL); PLATELET MORPHOLOGY NORMAL (NORMAL)
[2017-02-26 10:20] LABS: SCAN/DIFF FINAL DIFF MANUAL
[2017-02-26] MEDS ORDERED: SODIUM CHLORIDE 0.9% FLUSH 10 ML FLUSH IV FLUSH PRN (11:00)
--- NOTE | 2017-02-26 11:04 | HHI.HP ---
HPI Service [facility] Medicine Primary Care Physician Unknown Admission Diagnosis anemia, GI bleed, warfarin coagulopathy Diagnoses: Chief Complaint: Shortness of breath and weakness International Travel<30 Days: No Contact w/Intl Traveler<30days: No Known Affected Area: No History of Present Illness Patient is a 71-year-old female with past medical history significant for COPD, rheumatoid arthritis, atrial fibrillation on Coumadin, AKILAH, grade 1 diastolic dysfunction, and hypothyroidism who presents today for weakness and shortness of breath. Patient states that she has been feeling progressively weaker since last week. She states that she had symptoms of audible wheezing last week and was evaluated at the [facility] on 02/22 where her exam was benign. Patient states that she has been feeling out of breath with a mild, occasional cough that is sometimes productive of greenish yellow/brown sputum. She has not been coughing up blood. She is usually on 2 L NC at home during the day and night. She also wears CPAP at night for AKILAH. For the past 34 days she has noticed black stools. She states that she has not been keeping track of how many bowel movements she has had but would not describe her bowel movements as frequent diarrhea. She initially thought the black stool was secondary to eating a lot of spinach and broccoli, however this morning she had a large bowel movement of black stool and she became concerned. She denies any abdominal pain, nausea, vomiting, or food intolerance. She has not noticed any bright red blood per the rectum. She states she has never had a GI bleed in the past. Her last colonoscopy was within the last 6 months. She is on Coumadin for atrial fibrillation but has not had complications with bleeding in the past. Review of Systems Constitutional: COMPLAINS OF: Fatigue, DENIES: Diaphoretic episodes, Fever, Chills, Change in appetite Eyes: DENIES: Blurred vision, Diplopia Ears, nose, mouth, throat: DENIES: Throat pain Respiratory: COMPLAINS OF: Cough, Wheezing, Sputum production, Shortness of breath, DENIES: Hemoptysis Cardiovascular: DENIES: Chest pain, Syncope, Lower Extremity Edema Gastrointestinal: COMPLAINS OF: Black stools, DENIES: Abdominal pain, Bloody stools, Constipation, Diarrhea, Nausea, Vomiting Genitourinary: DENIES: Dysuria Musculoskeletal: DENIES: Muscle aches Integumentary: DENIES: Rash Hematologic/lymphatic: COMPLAINS OF: Bruising Neurologic: DENIES: Headache, Localized weakness Psychiatric: DENIES: Mood changes Past Family Social History Past Medical History RA HTN HLD Atrial fibrillation AKILAH (on CPAP) Hypothyroidism Aortic atherosclerosis Grade 1 diastolic dysfunction (echo December 2015 with EF 55-60%) GERD COPD Dr. Hillman (rheum) Dr. Hurd (cards) Dr. Lorenz (GI) Dr. Michelle (pulm) Dr. Castanon (sleep) Past Surgical History Cholecystectomy Carpal tunnel release, bilaterally Tonsillectomy EGD September 2016 Reported Medications Reported Meds & Active Scripts Active Warfarin 5 Mg Tab 5 Mg PO DAILY 5 days a week, pt is to take 10mg and 2 days a week, pt is to take 7.5mg [Portable Oxygen] Unit CONTINUOUS Ventolin Hfa 18 GM Inh (Albuterol Sulfate) 90 Mcg/Act Aer 2 Puff INH Q6HR Breo Ellipta Inh (Fluticasone/Vilanterol) 100-25 Mcg/Act Inh 1 Puff INH DAILY Oxygen tank (Oxygen) 1 Ea Tank 2 Liter NO.CANULA CONTINUOUS Oxygen Concentrator Portable Gaseous 2 L/min via Nasal Cannula Continuous For 99 months Pravastatin 40 Mg Tab 40 Mg PO DAILY Reported Omeprazole 10 Mg Cap 10 Mg PO DAILY Calcium 600 with Vitamin D (Calcium Carbonate-Cholecalciferol) 600-400 mg-Unit Tab 1 Tab PO DAILY Proctosol Hc 2.5% (Hydrocortisone Rectal 2.5%) 2.5% Cream 1 Applic RECTAL BID PRN Lasix (Furosemide) 20 Mg Tab 20 Mg PO DAILY Aspirin 81 Mg Chew 81 Mg CHEW DAILY Lisinopril 10 Mg Tab 10 Mg PO DAILY Magnesium Oxide 250 Mg Tab Methotrexate Inj 50 Mg/2 Ml Inj Actemra Inj (Tocilizumab Inj) 162 Mg/0.9 Ml Inj Folic Acid 400 Mcg Tab 400 Mcg PO DAILY Levothyroxine (Levothyroxine Sodium) 50 Mcg Tab 50 Mcg PO DAILY Allergies: Coded Allergies: No Known Allergies (Verified , 02/26/17) Active Ordered Medications Current Medications Medications (Trade) Dose Ordered Sig/Edward Route Start Time Stop Time Status Last Admin (NS Flush) 2 ml UNSCH PRN IVF 02/26/17 09:15 Pantoprazole Sodium 80 mg/ Sodium Chloride 100 ml @ 10 mls/hr Q10H IV 02/26/17 09:04 02/26/17 10:26 Sodium Chloride 250 ml @ 15 mls/hr ONCE ONCE IV 02/26/17 09:45 02/27/17 02:24 (Benadryl) 25 mg UNSCH X1 PRN PO 02/26/17 09:45 03/01/17 09:44 (Tylenol) 650 mg UNSCH X1 PRN PO 02/26/17 09:45 03/01/17 09:44 Family History Mother: , unclear cause of Father: , leukemia 2 Sisters: both passed 2/2 CVA; one sister had lung cancer other had a blood disorder (req to take Coumadin) Daughter: cerebral palsy Social History Lives alone with cat /divorce Retired - used to work at [employer] EtOH: denies Tobacco: 1PPDx 40 years, quit in 2001 Illicit drugs: denies Physical Exam Vital Signs Vital Signs Date Time Temp Pulse Resp B/P (MAP) Pulse Ox O2 Delivery O2 Flow Rate FiO2 02/26/17 10:53 89 113/49 (70) 95 Nasal Cannula 2.00 02/26/17 09:28 97 Nasal Cannula 2.00 02/26/17 09:24 Nasal Cannula 2.00 02/26/17 08:09 92 22 113/70 (84) 97 Nasal Cannula 2.00 02/26/17 08:02 98 Nasal Cannula 2.00 02/26/17 07:43 98.6 103 24 116/55 (75) 95 Room Air Physical Exam GENERAL: This is a well-nourished, well-developed obese female patient , in no apparent distress. SKIN: No rashes or lesions. Cool and dry. Pallor. Multiple ecchymoses on upper extremities bilaterally. HEAD: Atraumatic. Normocephalic. No temporal or scalp tenderness. EYES: Pupils equal round and reactive. Extraocular motions intact. No scleral icterus. No injection or drainage. ENT: Nose without bleeding, purulent drainage or septal hematoma. Throat without erythema, tonsillar hypertrophy or exudate. Uvula midline. Airway patent. NECK: Trachea midline. No JVD or lymphadenopathy. Supple, nontender, no meningeal signs. CARDIOVASCULAR: Regular rate and rhythm without murmurs, gallops, or rubs. RESPIRATORY: Clear to auscultation. Breath sounds equal bilaterally. No wheezes , rales, or rhonchi. GASTROINTESTINAL: Abdomen soft, non-tender, nondistended. No hepato-splenomegaly , or palpable masses. No guarding. MUSCULOSKELETAL: Extremities without clubbing, cyanosis, or edema. No joint tenderness, effusion, or edema noted. No calf tenderness. NEUROLOGICAL: Awake and alert, oriented 3. Cranial nerves II through XII intact. Motor and sensory grossly within normal limits. Normal speech. Laboratory Laboratory Tests Test 02/26/17 09:10 02/26/17 09:30 White Blood Count 14.3 Red Blood Count 2.04 Hemoglobin 6.2 Hematocrit 19.2 Mean Corpuscular Volume 93.9 Mean Corpuscular Hemoglobin 30.3 Mean Corpuscular Hemoglobin Concent 32.2 Red Cell Distribution Width 17.3 Platelet Count 152 Mean Platelet Volume 8.7 Neutrophils (%) (Auto) 85.4 Lymphocytes (%) (Auto) 5.5 Monocytes (%) (Auto) 7.8 Eosinophils (%) (Auto) 0.9 Basophils (%) (Auto) 0.4 Neutrophils # (Auto) 12.2 Lymphocytes # (Auto) 0.8 Monocytes # (Auto) 1.1 Eosinophils # (Auto) 0.1 Basophils # (Auto) 0.1 CBC Comment AUTO DIFF Differential Total Cells Counted 100 Neutrophils % (Manual) 87 Band Neutrophils % 5 Lymphocytes % 3 Monocytes % 4 Basophils % 1 Neutrophils # (Manual) 13.2 Nucleated Red Blood Cells 1 Differential Comment FINAL DIFF MANUAL Platelet Estimate NORMAL Platelet Morphology Comment NORMAL Prothrombin Time 73.7 Prothromb Time International Ratio 6.2 Blood Urea Nitrogen 52 Creatinine 1.21 Random Glucose 154 Total Protein 5.1 Albumin 2.5 Calcium Level 8.7 Alkaline Phosphatase 42 Aspartate Amino Transf (AST/SGOT) 14 Alanine Aminotransferase (ALT/SGPT) 24 Total Bilirubin 0.3 Sodium Level 136 Potassium Level 4.7 Chloride Level 104 Carbon Dioxide Level 24.4 Anion Gap 8 Estimat Glomerular Filtration Rate 44 Urine Color YELLOW Urine Turbidity CLEAR Urine pH 5.0 Urine Specific [place] 1.019 Urine Protein NEG Urine Glucose (UA) NEG Urine Ketones NEG Urine Occult Blood SMALL Urine Nitrite NEG Urine Bilirubin NEG Urine Urobilinogen LESS THAN 2.0 Urine Leukocyte Esterase MOD Urine RBC 1 Urine WBC 12 Urine WBC Clumps RARE Urine Transitional Epithelial Cells <1 Urine Bacteria OCC Urine Hyaline Casts 1 Urine Mucus FEW Microscopic Urinalysis Comment CULTURE INDICATED Date/Time Source Procedure Growth Status 02/26/17 09:30 Urine Clean Catch Urine Culture Pending Received Result Diagram: 02/26/[id number]/26/17909 Imaging Last Impressions Chest X-Ray 02/26/17903 Signed Impressions: Service Date/Time: Sunday, February 26, 2017 09:11 - CONCLUSION: 1. COPD changes. MD César Yen VTE Risk Assessment César VTE Risk Assessment: No/Low Risk (score <= 1) VTE Pharm Contraindication: Coagulopathy,INR elevated Caprini Risk Assessment Model Point Value = 1 Point Value = 2 Point Value = 3 Point Value = 5 Age 41-60 Minor surgery BMI > 25 kg/m2 Swollen legs Varicose veins or History of unexplained or recurrent spontaneous Oral contraceptives or hormone replacement Sepsis (< 1 month) Serious lung disease, including pneumonia (< 1 month) Abnormal pulmonary function Acute myocardial infarction Congestive heart failure (< 1 month) History of inflammatory bowel disease Medical patient at bed rest Age 61-74 Arthroscopic surgery Major open surgery (> 45 min) Laparoscopic surgery (> 45 min) Malignancy Confined to bed (> 72 hours) Immobilizing plaster cast Central venous access Age >= 75 History of VTE Family history of VTE Factor V Leiden Prothrombin [id number] Lupus anticoagulant Anticardiolipin antibodies Elevated serum homocysteine Heparin-induced thrombocytopenia Other congenital or acquired thrombophilia Stroke (< 1 month) Elective arthroplasty Hip, pelvis, or leg fracture Acute spinal cord injury (< 1 month) Prophylaxis Regimen Total Risk Factor Score Risk Level Prophylaxis Regimen 0-1 Low Early ambulation 2 Moderate Order ONE of the following: *Sequential Compression Device (SCD) *Heparin 5000 units SQ BID 3-4 Higher Order ONE of the following medications: *Heparin 5000 units SQ TID *Enoxaparin/Lovenox 40 mg SQ daily (WT < 150 kg, CrCl > 30 mL/min) *Enoxaparin/Lovenox 30 mg SQ daily (WT < 150 kg, CrCl > 10-29 mL/min) *Enoxaparin/Lovenox 30 mg SQ BID (WT < 150 kg, CrCl > 30 mL/min) AND/OR *Sequential Compression Device (SCD) 5 or more Highest Order ONE of the following medications: *Heparin 5000 units SQ TID (Preferred with Epidurals) *Enoxaparin/Lovenox 40 mg SQ daily (WT < 150 kg, CrCl > 30 mL/min) *Enoxaparin/Lovenox 30 mg SQ daily (WT < 150 kg, CrCl > 10-29 mL/min) *Enoxaparin/Lovenox 30 mg SQ BID (WT < 150 kg, CrCl > 30 mL/min) AND *Sequential Compression Device (SCD) Assessment and Plan Assessment and Plan Patient is a 71-year-old female with past medical history significant for COPD, rheumatoid arthritis, atrial fibrillation on Coumadin, AKILAH, grade 1 diastolic dysfunction, and hypothyroidism who presented with weakness and shortness of breath and admitted supratherapeutic INR with GI bleed. Code Status Full Code Discussed Condition With dw Dr. Skinner Problem List: (1) GI bleed ICD Codes: K92.2 - Gastrointestinal hemorrhage, unspecified Status: Acute Plan: DDx: gastric/duodenal ulcer, diverticulosis, angiodysplasia, colorectal cancer, polyps, IBD, hemorrhoids. Pt has a h/o diverticulosis, polyps, A-fib on Coumadin. No h/o chronic NSAID use, alcohol abuse, smoking, anemia, or corticosteroids. No recent unintentional wt. loss. No reported hematemesis. No bright red blood; bleeding described as slow/low volume. No dizziness, however considerable shortness of breath and weakness. BP WNLs and mildly tachycardic. Previous colonoscopy on September 2016, told to return in 5 years. Hemoccult in ED positive. H/H on admission was 6.2/19.2. PT 73.7, INR 6.2 Protonix 40 mg IV BID for 72 hrs H/Hs Q6hrs- monitor results closely. administer 2 units PRBCs as ordered in ED Consult GI- known to Dr. Lorenz; NPO until pt. evaluated. Supplemental O2 PRN. Pulse Ox. CBC, BMP, PT/INR, and Mg in the AM Hold all anticoagulation (Coumadin, Aspirin). SCDs for DVT prophylaxis. (2) Warfarin-induced coagulopathy ICD Codes: D68.9 - Coagulation defect, unspecified; T45.515A - Adverse effect of anticoagulants, initial encounter Status: Acute Plan: On Coumadin for Atrial Fibrillation INR supratherapeutic at 6.2 in setting of active GI bleed s/p 10mg Vitamin K SQ -Hold home Coumadin -Will give 1 unit FFP -Repeat INR this afternoon (3) Atrial fibrillation ICD Codes: I48.91 - Unspecified atrial fibrillation Status: Chronic Plan: Home dose of Coumadin 5 mg PO daily See above (4) COPD (chronic obstructive pulmonary disease) ICD Codes: J44.9 - Chronic obstructive pulmonary disease, unspecified Status: Chronic Plan: On 2L NC at home Continue home Breo and albuterol HFA Titrate O2 PRN (5) CHF (congestive heart failure), NYHA class I ICD Codes: I50.9 - Heart failure, unspecified Status: Chronic Plan: Continue Lasix 20mg PO daily and Metoprolol Tartrate 12.5mg PO BID (6) HLD (hyperlipidemia) ICD Codes: E78.5 - Hyperlipidemia, unspecified Status: Chronic Plan: Continue home statin (7) HTN (hypertension) ICD Codes: I10 - Essential (primary) hypertension Status: Chronic Plan: Continue home lisinopril 10mg PO daily and metoprolol tartrate 12.5mg PO BID (8) RA (rheumatoid arthritis) ICD Codes: M06.9 - Rheumatoid arthritis Status: Chronic Plan: Hold home methotrexate and Tocilizumab (9) Nutrition, metabolism, and development symptoms ICD Codes: R63.8 - Nutrition, metabolism, and development symptoms Status: Acute Plan: Fluids: None, pt with history of CHF avoid excess fluids Electrolytes: Within normal limits, continue to monitor Nutrition: NPO until evaluated by GI DVT PPX: Not indicated- INR currently supratherapeutic at 6.2 with active GI bleed. Physician Certification 2 Midnight Certification Type: Admission for Inpatient Services Order for Inpatient Services The services are ordered in accordance with Medicare regulations or non- Medicare payer requirements, as applicable. In the case of services not specified as inpatient-only, they are appropriately provided as inpatient services in accordance with the 2-midnight benchmark. Estimated LOS (days): 3 days is the estimated time the patient will need to remain in the hospital, assuming treatment plan goals are met and no additional complications. Post-Hospital Plan: Home Problem Qualifiers (1) GI bleed: Qualified Codes: K92.2 - Gastrointestinal hemorrhage, unspecified (2) Atrial fibrillation: Qualified Codes: I48.0 - Paroxysmal atrial fibrillation (3) COPD (chronic obstructive pulmonary disease): Qualified Codes: J43.9 - Emphysema, unspecified (4) CHF (congestive heart failure), NYHA class I: Qualified Codes: I50.32 - Chronic diastolic (congestive) heart failure (5) HLD (hyperlipidemia): Qualified Codes: E78.5 - Hyperlipidemia, unspecified (6) HTN (hypertension): Qualified Codes: I10 - Essential (primary) hypertension (7) RA (rheumatoid arthritis): Qualified Codes: M06.9 - Rheumatoid arthritis, unspecified Kita Fabian MD, R3 Feb 26, 2017 11:04
[2017-02-26] MEDS ORDERED: PILL SPLITTER OTHER PRN (11:45)
[2017-02-26] MEDS: PANTOPRAZOLE SODIUM 40 MG VIAL IV PUSH SCH ×2 (11:45→21:24)
[2017-02-26] MEDS ORDERED: ALBUTEROL SULFATE 90 MCG/ACT HFA 8 GM INHALER INH SCH (12:00)
[2017-02-26] MEDS ORDERED: SODIUM CHLOR 0.9% 1000 ML INJ 1,000 ML IV ONE (12:45)
--- NOTE | 2017-02-26 13:56 | PD.CONS ---
HPI History of Present Illness This is a 71 year old female who presented to the ER for evaluation for generalized weakness, shortness of breath and was found to have severe anemia with an HH of 6.2/19.2. She also has a history of atrial fibrillation and takes Coumadin and her INR was noted to be 6.2. She last took her Coumadin yesterday. She states that she's been having weakness and shortness of breath over the past 2 weeks, but it suddenly became more severe yesterday. She also reports that she's been having black tarry stools over the past 3-4 days. Initially, she thought this was related to her diet and therefore cut out spinach and broccoli. However she has continued to have the black tarry stools and when she became more short of breath today she decided to come to the ER for further evaluation. She does have a history of GERD but states it's well controlled with omeprazole at home. She had mild nausea without vomiting last week but is not currently having any. She denies any abdominal pain. She does have a history of gastric ulcer in 2011. She takes Coumadin, but does not take other NSAIDs. She last had an EGD/colonoscopy (09/19/16)----> reflux esophagitis in the distal esophagus, acute gastritis was found in the gastric antrum, duodenal mucosa with no abnormalities, retroflex views revealed a medium hiatal hernia. There was moderate diverticulosis noted in the sigmoid colon, moderate diverticulosis was noted, sessile polyp ranging between 3-5 mm in size was found in the sigmoid colon, retroflex views revealed internal grade 1 hemorrhoids, a digital rectal exam was performed and revealed medium external hemorrhoids. Pathology revealed erosive esophagitis, negative for viral cytopathic effect or fungal organisms, negative for Naik's specialized columnar epithelium, hyperplastic polyp in the sigmoid colon. (Alaina Ochoa) PFSH Past Medical History History of gastric ulcer Gastritis Diverticulosis Hyperplastic polyps of the colon Anxiety Atherosclerosis of aorta Atrial fibrillation Chronic obstructive pulmonary disease Chronic low back pain History of esophageal stricture Osteoarthritis GERD Hemorrhoids Hiatal hernia Hypertension Irritable bowel syndrome Osteopenia Emphysema Rheumatoid arthritis History of TIA Past Surgical History Cholecystectomy EGD/colonoscopy Carpal tunnel surgery Tonsillectomy (Alaina Ochoa) Coded Allergies: No Known Allergies (Verified , 02/26/17) Medications Allergies Coded Allergies Type Severity Reaction Last Updated Verified No Known Allergies 02/26/17 Yes Active Scripts Medications Dose Route/Sig Max Daily Dose Days Date Category Dose Instructions Omeprazole 10 Mg Cap 10 Mg PO DAILY 02/26/17 Reported Calcium 600 with Vitamin D (Calcium Carbonate-Cholecalciferol) 600-400 mg-Unit Tab 1 Tab PO DAILY 02/26/17 Reported Warfarin 5 Mg Tab 5 Mg PO DAILY 02/08/17 Rx 5 days a week, pt is to take 10mg and 2 days a week, pt is to take 7.5mg Proctosol Hc 2.5% (Hydrocortisone Rectal 2.5%) 2.5% Cream 1 Applic RECTAL BID PRN 02/07/17 Reported Lasix (Furosemide) 20 Mg Tab 20 Mg PO DAILY 02/07/17 Reported Aspirin 81 Mg Chew 81 Mg CHEW DAILY 02/07/17 Reported [Portable Oxygen] Unit CONTINUOUS 01/31/17 Rx Ventolin Hfa 18 GM Inh (Albuterol Sulfate) 90 Mcg/Act Aer 2 Puff INH Q6HR 01/25/17 Rx Breo Ellipta Inh (Fluticasone/Vilanterol) 100-25 Mcg/Act Inh 1 Puff INH DAILY 01/25/17 Rx Oxygen tank (Oxygen) 1 Ea Tank 2 Liter NO.CANULA CONTINUOUS 01/25/17 Rx Oxygen Concentrator Portable Gaseous 2 L/min via Nasal Cannula Continuous For 99 months Lisinopril 10 Mg Tab 10 Mg PO DAILY 01/20/17 Reported Pravastatin 40 Mg Tab 40 Mg PO DAILY 10/24/16 Rx Magnesium Oxide 250 Mg Tab 09/27/16 Reported Methotrexate Inj 50 Mg/2 Ml Inj 09/27/16 Reported Actemra Inj (Tocilizumab Inj) 162 Mg/0.9 Ml Inj 09/27/16 Reported Folic Acid 400 Mcg Tab 400 Mcg PO DAILY 04/25/16 Reported Levothyroxine (Levothyroxine Sodium) 50 Mcg Tab 50 Mcg PO DAILY 04/25/16 Reported Family History Father had leukemia Social History No tobacco (Did smoke 1ppd x 20 years in past) No ETOH No illicit drug use (Alaina Ochoa) Review of Systems Constitutional: COMPLAINS OF: Fatigue, DENIES: Fever, Weight loss, Chills, Change in appetite Respiratory: COMPLAINS OF: Cough, Shortness of breath Cardiovascular: DENIES: Chest pain Gastrointestinal: COMPLAINS OF: Black stools, Nausea, Heartburn, DENIES: Abdominal pain, Bloody stools, Constipation, Diarrhea, Vomiting, Swelling of Abdomen Musculoskeletal: COMPLAINS OF: Joint pain, Back pain Hematologic/lymphatic: COMPLAINS OF: Bruising Neurologic: DENIES: Headache Psychiatric: DENIES: Confusion (Alaina Ochoa EMMANUEL) GI Exam Vitals I&O Vital Signs Date Time Temp Pulse Resp B/P (MAP) Pulse Ox O2 Delivery O2 Flow Rate FiO2 02/26/17 13:38 79 22 92/46 (61) 99 Nasal Cannula 3.00 02/26/17 13:33 81 20 94/48 (63) 93 Nasal Cannula 3.00 02/26/17 13:32 76 18 94/48 93 02/26/17 13:21 98.3 78 20 95/46 93 02/26/17 12:45 76 22 104/49 (67) 97 Nasal Cannula 3.00 02/26/17 12:32 85 20 81/42 (55) 99 Nasal Cannula 3.00 02/26/17 11:25 90 19 91/45 (60) 100 Nasal Cannula 3.00 02/26/17 10:53 89 113/49 (70) 95 Nasal Cannula 2.00 02/26/17 09:28 97 Nasal Cannula 2.00 02/26/17 09:24 Nasal Cannula 2.00 02/26/17 08:09 92 22 113/70 (84) 97 Nasal Cannula 2.00 02/26/17 08:02 98 Nasal Cannula 2.00 02/26/17 07:43 98.6 103 24 116/55 (75) 95 Room Air I/O 02/25/17 02/25/17 02/25/17 02/26/17 02/26/17 02/26/17 07:00 15:00 23:00 07:00 15:00 23:00 Intake Total 1060 ml Balance 1060 ml Intake IV Total 1055 ml Blood Product IV Normal Saline Flush 5 ml Imaging Last Impressions Chest X-Ray 02/26/17 0904 Signed Impressions: Service Date/Time: Sunday, February 26, 2017 09:11 - CONCLUSION: 1. COPD changes. Tal Nur MD Laboratory Test 02/26/17 09:10 02/26/17 09:30 White Blood Count 14.3 TH/MM3 Red Blood Count 2.04 MIL/MM3 Hemoglobin 6.2 GM/DL Hematocrit 19.2 % Mean Corpuscular Volume 93.9 FL Mean Corpuscular Hemoglobin 30.3 PG Mean Corpuscular Hemoglobin Concent 32.2 % Red Cell Distribution Width 17.3 % Platelet Count 152 TH/MM3 Mean Platelet Volume 8.7 FL Neutrophils (%) (Auto) 85.4 % Lymphocytes (%) (Auto) 5.5 % Monocytes (%) (Auto) 7.8 % Eosinophils (%) (Auto) 0.9 % Basophils (%) (Auto) 0.4 % Neutrophils # (Auto) 12.2 TH/MM3 Lymphocytes # (Auto) 0.8 TH/MM3 Monocytes # (Auto) 1.1 TH/MM3 Eosinophils # (Auto) 0.1 TH/MM3 Basophils # (Auto) 0.1 TH/MM3 CBC Comment AUTO DIFF Differential Total Cells Counted 100 Neutrophils % (Manual) 87 % Band Neutrophils % 5 % Lymphocytes % 3 % Monocytes % 4 % Basophils % 1 % Neutrophils # (Manual) 13.2 TH/MM3 Nucleated Red Blood Cells 1 /100 WBC Differential Comment FINAL DIFF MANUAL Platelet Estimate NORMAL Platelet Morphology Comment NORMAL Prothrombin Time 73.7 SEC Prothromb Time International Ratio 6.2 RATIO Blood Urea Nitrogen 52 MG/DL Creatinine 1.21 MG/DL Random Glucose 154 MG/DL Total Protein 5.1 GM/DL Albumin 2.5 GM/DL Calcium Level 8.7 MG/DL Alkaline Phosphatase 42 U/L Aspartate Amino Transf (AST/SGOT) 14 U/L Alanine Aminotransferase (ALT/SGPT) 24 U/L Total Bilirubin 0.3 MG/DL Sodium Level 136 MEQ/L Potassium Level 4.7 MEQ/L Chloride Level 104 MEQ/L Carbon Dioxide Level 24.4 MEQ/L Anion Gap 8 MEQ/L Estimat Glomerular Filtration Rate 44 ML/MIN Urine Color YELLOW Urine Turbidity CLEAR Urine pH 5.0 Urine Specific [place] 1.019 Urine Protein NEG mg/dL Urine Glucose (UA) NEG mg/dL Urine Ketones NEG mg/dL Urine Occult Blood SMALL Urine Nitrite NEG Urine Bilirubin NEG Urine Urobilinogen LESS THAN 2.0 MG/DL Urine Leukocyte Esterase MOD Urine RBC 1 /hpf Urine WBC 12 /hpf Urine WBC Clumps RARE Urine Transitional Epithelial Cells <1 /hpf Urine Bacteria OCC /hpf Urine Hyaline Casts 1 /lpf Urine Mucus FEW /lpf Microscopic Urinalysis Comment CULTURE INDICATED Date/Time Source Procedure Growth Status 02/26/17 09:30 Urine Clean Catch Urine Culture Pending Received Physical Examination HEENT: Normocephalic; atraumatic; no jaundice. CHEST: CTA, diminished CARDIAC: Irregular, rate 80's ABDOMEN: Soft, obese, nondistended, nontender; no hepatosplenomegaly; bowel sounds are present in all four quadrants. EXTREMITIES: No clubbing, cyanosis, or edema. SKIN: Generalized pallor WALKING DRAGLINE OPERATOR: No focal deficits; alert and oriented times three. (Alaina Ochoa) Assessment and Plan Plan ASSESSMENT: - Upper GIB, Melena. Hx PUD 2011. on admission .07/30.2. 2-3 week hx of sob/generalized weakness, melena x 3-4 days. EGD/colonoscopy (09/19/16)----> reflux esophagitis in the distal esophagus, acute gastritis was found in the gastric antrum, duodenal mucosa with no abnormalities, retroflex views revealed a medium hiatal hernia. There was moderate diverticulosis noted in the sigmoid colon, moderate diverticulosis was noted, sessile polyp ranging between 3-5 mm in size was found in the sigmoid colon, retroflex views revealed internal grade 1 hemorrhoids, a digital rectal exam was performed and revealed medium external hemorrhoids. Pathology revealed erosive esophagitis, negative for viral cytopathic effect or fungal organisms, negative for Naik's specialized columnar epithelium, hyperplastic polyp in the sigmoid colon. 2 units PRBC, 4 units FFP ordered. S/P Vitamin K. NPO. EGD later today once INR corrected. Protonix gtt. - Severe anemia secondary to acute blood loss. on admission .07/30.2. 2 units PRBC ordered. - Coagulopathy, Coumadin toxicity. INR 6.2. Last took coumadin last night. S/ P Vitamin K. 4 units FFP ordered. - Leukocytosis. WBC 14.3. - GERD. Protonix. - Atrial fibrillation. Coumadin at home- held for GIB/coagulopathy. Rate controlled - Anxiety, COPD, Emphysema, Chronic low back pain, HTN, RA, Hx TIA per attending. PLAN: - Plan for EGD today once INR corrected - Obtain consents - NPO - Give 4 units FFP stat, each over 30 minutes - 2 units PRBC ordered - Protonix Gtt - Monitor HH - Transfuse as necessary - Supportive care - Further recommendations to follow based on results of above - Pt seen and examined by Dr. Hendrickson and myself and this note is written on his behalf (Alaina Ochoa) Physician Comments Patient seen and examined Agree with above Continue with current supportive care Monitor labs and transfuse as needed Need to correct her coagulopathy We'll plan on EGD today (Jimmy Hendrickson MD) Alaina Ochoa Feb 26, 2017 13:56 Jimmy Hendrickson MD Feb 26, 2017 17:23
--- NOTE | 2017-02-26 14:16 | EKG ---
Date Performed: 02/26/2017 Time Performed: 08:14:58 PTAGE: 71 years EKG: Sinus rhythm NORMAL ECG PREVIOUS TRACING : 01/24/2017 06.29 No significant change from previous tracing noted. DOCTOR: Cuate Frye Interpretating Date/Time 02/26/2017 14:15:32
[2017-02-26] MEDS ORDERED: FUROSEMIDE 20 MG/2 ML VIAL IV PUSH ONE (15:30)
[2017-02-26] MEDS ORDERED: CHLORHEXIDINE GLUCONATE 2 % 1 PACK (2 CLOTHS)(extra cloths) TOPICAL PRN (16:00)
[2017-02-26] MEDS ORDERED: PROPOFOL 200 MG/20 ML AMP IV ONE (17:12)
--- NOTE | 2017-02-26 17:24 | PD.PROCEDR ---
GI Procedure REFERRING PHYSICIAN Abena PROCEDURE PERFORMED EGD INDICATION FOR PROCEDURE Melena, anemia PROCEDURE: The procedure, risks and benefits were discussed with Ms. Ocasio and informed consent was obtained. Anesthesia sedated her with Diprivan. She was placed in the left lateral decubitus position. EGD: The Pentax videoscope was introduced through the oropharynx and advanced to the second portion of the duodenum under direct visualization. Retroflexion was performed in the stomach. FINDINGS: The esophagus this appeared to be unremarkable and within normal limits The stomach there was a large hiatal hernia otherwise gastric mucosa appeared to be unremarkable with normal limits no ulcerations or erosions and no blood or bleeding The duodenum this too appeared to be unremarkable and within normal limits with no blood or bleeding ESTIMATED BLOOD LOSS: None SPECIMENS REMOVED: None COMPLICATIONS: None IMPRESSION: Large hiatal hernia Otherwise normal EGD PLAN: Continue with current supportive care Recommend outpatient capsule endoscopy We will order a small bowel follow-through Further recommendations depend on her hospital course Jimmy Hendrickson MD Feb 26, 2017 17:24
[2017-02-26] MEDS ORDERED: DO NOT ADM ANY ANTICOAGULANT DRUGS PRN (18:00)
[2017-02-26] MEDS: MAGNESIUM CITRATE SOLN 300 ML BTL PO SCH ×2 (18:00→23:36)
[2017-02-26] MEDS: METOPROLOL TARTRATE 25 MG TAB PO SCH (21:24)
[2017-02-26] MEDS: SODIUM CHLORIDE 0.9% FLUSH 10 ML FLUSH IV FLUSH SCH (21:25)
[2017-02-26 22:49] LABS: REVIEW FLAG FINAL
[2017-02-26 22:52] LABS: HEMATOCRIT 18.8 % (35.0-46.0)
[2017-02-26 22:54] LABS: INTERNATIONAL NORMALIZED RATIO 1.6 RATIO; PROTHROMBIN TIME - PATIENT 18.2 SEC (9.8-11.6)
[2017-02-26] MEDS ORDERED: FUROSEMIDE 20 MG/2 ML VIAL IV ONE ×2 (23:15→23:45)
[2017-02-26] MEDS: ONDANSETRON HCL 4 MG/2 ML VIAL IV PRN (23:36)
[2017-02-27] VITALS (16 sets, daily range): BP systolic 79–151; BP diastolic 41–67; PULSE 71–110; RESP 16–29; TEMP 98.5–99; O2SAT 94–100
[2017-02-27] MEDS: BISACODYL EC 5 MG TABEC PO SCH ×2 (00:07→03:00)
[2017-02-27] MEDS: CHLORHEXIDINE GLUCONATE 2 % 1 PACK (2 CLOTHS)(taper/protocol) TOPICAL SCH (03:27)
[2017-02-27 03:45] LABS: INTERNATIONAL NORMALIZED RATIO 1.5 RATIO; PROTHROMBIN TIME - PATIENT 17.4 SEC (9.8-11.6)
[2017-02-27 04:08] LABS: AUTOMATED NEUTROPHIL # 11.6 TH/MM3 (1.8-7.7); BASOPHIL % 0.3 % (0.0-2.0); EOSINOPHIL # 0.1 TH/MM3 (0-0.4); EOSINOPHIL % 0.8 % (0.0-4.0); LYMPH % 9.4 % (9.0-44.0); LYMPHOCYTE # 1.4 TH/MM3 (1.0-4.8); MEAN CELL VOLUME 89.2 FL (80.0-100.0); MEAN CORPUSCULAR HEMOGLOBIN 29.7 PG (27.0-34.0); MEAN CORPUSCULAR HGB CONC 33.3 % (32.0-36.0); MONO % 9.9 % (0.0-8.0); NEUT % 79.6 % (16.0-70.0); PLATELET COUNT 139 TH/MM3 (150-450); RED BLOOD COUNT 2.18 MIL/MM3 (4.00-5.30); WHITE BLOOD COUNT 14.5 TH/MM3 (4.0-11.0)
[2017-02-27 04:09] LABS: HEMO FLAGS AUTO DIFF
[2017-02-27 04:13] LABS: HEMATOCRIT 19.4 % (35.0-46.0)
[2017-02-27] MEDS: LEVOTHYROXINE SODIUM 50 MCG TAB PO SCH (06:00)
[2017-02-27 06:10] LABS: ALKALINE PHOSPHATASE 44 U/L (45-117); ALT (GPT) 22 U/L (10-53); ANION GAP 4 MEQ/L (5-15); AST (GOT) 15 U/L (15-37); BICARBONATE 30.6 MEQ/L (21.0-32.0); BLOOD UREA NITROGEN 50 MG/DL (7-18); CHLORIDE 107 MEQ/L (98-107); GLOMERULAR FILTRATION RATE 50 ML/MIN (>89); MAGNESIUM 2.8 MG/DL (1.5-2.5); POTASSIUM 4.6 MEQ/L (3.5-5.1); SODIUM (NA) 142 MEQ/L (136-145); TOTAL BILIRUBIN ADULT 0.6 MG/DL (0.2-1.0)
[2017-02-27 06:56] LABS: BANDS 2 % (0-6); CORRECTED NUCLEATED RBC 1 /100 WBC (0-0); METAMYELOCYTES 2 % (0-1); MYELOCYTES 1 % (0-0); NEUTROPHIL # MANUAL DIFF 12.8 TH/MM3 (1.8-7.7); PLATELET ESTIMATE SMEAR LOW (NORMAL); PLATELET MORPHOLOGY NORMAL (NORMAL); POLYS (SEG NEUTROPHILS) 83 % (16-70); SCAN/DIFF FINAL DIFF MANUAL; WBC DIFF SAMPLE 100
--- NOTE | 2017-02-27 09:30 | HHI.GIFU ---
Subjective Remarks Resting in bed in no distress. No n/v. No abdominal pain. No bloody stools/ black tarry stools overnight. (Alaina Ochoa) Objective Vitals I&O Vital Signs Date Time Temp Pulse Resp B/P (MAP) Pulse Ox O2 Delivery O2 Flow Rate FiO2 02/27/17 07:35 100 Nasal Cannula 2.00 02/27/17 06:16 99.0 81 20 118/57 100 02/27/17 06:00 82 02/27/17 04:34 98.9 88 22 151/67 98 02/27/17 04:00 81 02/27/17 04:00 98.8 81 22 144/50 (81) 100 02/27/17 02:00 110 02/27/17 00:00 99.0 82 22 105/55 (72) 100 02/27/17 00:00 83 02/26/17 22:00 84 02/26/17 20:05 98 Nasal Cannula 2.00 02/26/17 20:00 99.1 94 22 100/58 (72) 93 02/26/17 20:00 95 02/26/17 18:59 99.2 78 22 100/58 99 02/26/17 18:00 87 02/26/17 17:50 98.1 77 14 110/59 (76) 99 Nasal Cannula 2 02/26/17 17:45 78 14 109/55 (73) 99 Nasal Cannula 2 02/26/17 17:32 98.1 78 14 117/65 (82) 98 Nasal Cannula 2 02/26/17 16:00 75 02/26/17 16:00 99.3 75 22 113/55 (74) 96 02/26/17 15:43 99.3 75 22 95/48 96 02/26/17 14:47 98.3 70 20 113/55 98 02/26/17 14:20 80 20 92/49 92 02/26/17 14:05 02/26/17 14:00 77 02/26/17 13:50 98.2 76 20 95/47 96 02/26/17 13:38 79 22 92/46 (61) 99 Nasal Cannula 3.00 02/26/17 13:33 81 20 94/48 (63) 93 Nasal Cannula 3.00 02/26/17 13:32 76 18 94/48 93 02/26/17 13:21 98.3 78 20 95/46 93 02/26/17 12:45 76 22 104/49 (67) 97 Nasal Cannula 3.00 02/26/17 12:32 85 20 81/42 (55) 99 Nasal Cannula 3.00 02/26/17 11:25 90 19 91/45 (60) 100 Nasal Cannula 3.00 02/26/17 10:53 89 113/49 (70) 95 Nasal Cannula 2.00 02/26/17 09:28 97 Nasal Cannula 2.00 I/O 02/26/17 02/26/17 02/26/17 02/27/17 02/27/17 02/27/17 07:00 15:00 23:00 07:00 15:00 23:00 Intake Total 1771 ml 1804 ml 1300 ml Output Total 1000 ml Balance 1771 ml 804 ml 1300 ml Intake Oral 400 ml IV Total 1055 ml 200 ml Packed Cells 650 ml 400 ml FFP 621 ml 614 ml Blood Product IV Normal Saline Flush 95 ml 340 ml 500 ml Output Urine Total 1000 ml # Voids 5 5 # Bowel Movements 2 Laboratory Laboratory Tests Test 02/26/17 09:30 02/26/17 14:15 02/26/17 22:18 02/27/17 02:57 Urine Color YELLOW Urine Turbidity CLEAR Urine pH 5.0 Urine Specific [place] 1.019 Urine Protein NEG Urine Glucose (UA) NEG Urine Ketones NEG Urine Occult Blood SMALL Urine Nitrite NEG Urine Bilirubin NEG Urine Urobilinogen LESS THAN 2.0 Urine Leukocyte Esterase MOD Urine RBC 1 Urine WBC 12 Urine WBC Clumps RARE Urine Transitional Epithelial Cells <1 Urine Bacteria OCC Urine Hyaline Casts 1 Urine Mucus FEW Microscopic Urinalysis Comment CULTURE INDICATED Nasal Screen MRSA (PCR) MRSA NOT DETECTED Hemoglobin 6.2 6.5 Hematocrit 18.8 19.4 Prothrombin Time 18.2 17.4 Prothromb Time International Ratio 1.6 1.5 White Blood Count 14.5 Red Blood Count 2.18 Mean Corpuscular Volume 89.2 Mean Corpuscular Hemoglobin 29.7 Mean Corpuscular Hemoglobin Concent 33.3 Red Cell Distribution Width 17.0 Platelet Count 139 Mean Platelet Volume 8.8 Neutrophils (%) (Auto) 79.6 Lymphocytes (%) (Auto) 9.4 Monocytes (%) (Auto) 9.9 Eosinophils (%) (Auto) 0.8 Basophils (%) (Auto) 0.3 Neutrophils # (Auto) 11.6 Lymphocytes # (Auto) 1.4 Monocytes # (Auto) 1.4 Eosinophils # (Auto) 0.1 Basophils # (Auto) 0.0 CBC Comment AUTO DIFF Differential Total Cells Counted 100 Neutrophils % (Manual) 83 Band Neutrophils % 2 Lymphocytes % 7 Monocytes % 5 Neutrophils # (Manual) 12.8 Metamyelocytes 2 Myelocytes 1 Nucleated Red Blood Cells 1 Differential Comment FINAL DIFF MANUAL Platelet Estimate LOW Platelet Morphology Comment NORMAL Hematology Comments Test 02/27/17 04:40 Blood Urea Nitrogen 50 Creatinine 1.08 Random Glucose 156 Total Protein 5.2 Albumin 2.4 Calcium Level 7.8 Magnesium Level 2.8 Alkaline Phosphatase 44 Aspartate Amino Transf (AST/SGOT) 15 Alanine Aminotransferase (ALT/SGPT) 22 Total Bilirubin 0.6 Sodium Level 142 Potassium Level 4.6 Chloride Level 107 Carbon Dioxide Level 30.6 Anion Gap 4 Estimat Glomerular Filtration Rate 50 Date/Time Source Procedure Growth Status 02/26/17 09:30 Urine Clean Catch Urine Culture Pending Received Imaging Last Impressions Chest X-Ray 02/26/17 0904 Signed Impressions: Service Date/Time: Sunday, February 26, 2017 09:11 - CONCLUSION: 1. COPD changes. Tal Nur MD Physical Exam HEENT: Normocephalic; atraumatic; no jaundice. CHEST: CTA CARDIAC: Irregular ABDOMEN: Soft, nondistended, nontender; no hepatosplenomegaly; bowel sounds are present in all four quadrants. EXTREMITIES: No clubbing, cyanosis, or edema. SKIN: Normal; no rash; no jaundice. CAT HOOKER: No focal deficits; alert and oriented times three. (Alaina Ochoa [facility]) Assessment and Plan Plan ASSESSMENT: - Upper GIB, Melena. Hx PUD 2011. HH on admission .2.2. 2-3 week hx of sob/generalized weakness, melena x 3-4 days. EGD/colonoscopy (09/19/16)----> reflux esophagitis in the distal esophagus, acute gastritis was found in the gastric antrum, duodenal mucosa with no abnormalities, retroflex views revealed a medium hiatal hernia. There was moderate diverticulosis noted in the sigmoid colon, moderate diverticulosis was noted, sessile polyp ranging between 3-5 mm in size was found in the sigmoid colon, retroflex views revealed internal grade 1 hemorrhoids, a digital rectal exam was performed and revealed medium external hemorrhoids. Pathology revealed erosive esophagitis, negative for viral cytopathic effect or fungal organisms, negative for Naik's specialized columnar epithelium, hyperplastic polyp in the sigmoid colon. S/ P EGD (02/26/17)---> Large HH, normal EGD otherwise. HH 6.5/19.4. 4units PRBC. No obvious active bleeding. Check SBFT. Capsule endoscopy as outpatient. - Severe anemia secondary to acute blood loss. HH 6.5/19.4. S/P 4 units PRBC. - Coagulopathy, Coumadin toxicity. INR 6.2 on admission. S/P Vitamin K, 4 units FFP ordered. INR 1.5. - Leukocytosis. WBC 14.5. - GERD. Protonix. - Atrial fibrillation. Coumadin at home- held for GIB/coagulopathy. Rate controlled - Anxiety, COPD, Emphysema, Chronic low back pain, HTN, RA, Hx TIA per attending. PLAN: - MARLENE (heart healthy) - Receiving blood transfusion - Protonix 40mg IV BID dosing - SBFT - Monitor HH - Transfuse as necessary - 2 units PRBC ordered - Protonix Gtt - Supportive care - Capsule endoscopy as outpatient - Further recommendations to follow based on results of above - Pt seen and examined by Dr. Hendrickson and myself and this note is written on his behalf (Alaina Ochoa) Physician Comments Patient seen and examined Agree with above Continue with current supportive care Monitor labs Small bowel follow-through unremarkable except for a slow transition Blood counts seem to be hovering We will continue to monitor (Jimmy Hendrickson MD) Alaina Ochoa Feb 27, 2017 09:30 Jimmy Hendrickson MD Feb 27, 2017 23:27
--- NOTE | 2017-02-27 10:32 | HHI.FPPN ---
Subjective Remarks Patient with persistently low hemoglobin overnight even after 2 units packed red blood cell transfusion. She is currently receiving 2 more units of packed red blood cells. Her vitals have been stable and her blood pressure improved to within normal limits. She is breathing more comfortably on 2 L nasal cannula this morning. She remains afebrile. She had more episodes of black tarry stools overnight, with the most recent being at 4:30 this morning. She denies any chest pain, shortness of breath, fever, chills, nausea, vomiting, or abdominal pain. (Kita Fabian MD, R3) Objective Vitals Vital Signs Date Time Temp Pulse Resp B/P (MAP) Pulse Ox O2 Delivery O2 Flow Rate FiO2 02/27/17 07:35 100 Nasal Cannula 2.00 02/27/17 06:16 99.0 81 20 118/57 100 02/27/17 06:00 82 02/27/17 04:34 98.9 88 22 151/67 98 02/27/17 04:00 81 02/27/17 04:00 98.8 81 22 144/50 (81) 100 02/27/17 02:00 110 02/27/17 00:00 99.0 82 22 105/55 (72) 100 02/27/17 00:00 83 02/26/17 22:00 84 02/26/17 20:05 98 Nasal Cannula 2.00 02/26/17 20:00 99.1 94 22 100/58 (72) 93 02/26/17 20:00 95 02/26/17 18:59 99.2 78 22 100/58 99 02/26/17 18:00 87 02/26/17 17:50 98.1 77 14 110/59 (76) 99 Nasal Cannula 2 02/26/17 17:45 78 14 109/55 (73) 99 Nasal Cannula 2 02/26/17 17:32 98.1 78 14 117/65 (82) 98 Nasal Cannula 2 02/26/17 16:00 75 02/26/17 16:00 99.3 75 22 113/55 (74) 96 02/26/17 15:43 99.3 75 22 95/48 96 02/26/17 14:47 98.3 70 20 113/55 98 02/26/17 14:20 80 20 92/49 92 02/26/17 14:05 9/18/17 14:00 77 02/26/17 13:50 98.2 76 20 95/47 96 02/26/17 13:38 79 22 92/46 (61) 99 Nasal Cannula 3.00 02/26/17 13:33 81 20 94/48 (63) 93 Nasal Cannula 3.00 02/26/17 13:32 76 18 94/48 93 02/26/17 13:21 98.3 78 20 95/46 93 02/26/17 12:45 76 22 104/49 (67) 97 Nasal Cannula 3.00 02/26/17 12:32 85 20 81/42 (55) 99 Nasal Cannula 3.00 02/26/17 11:25 90 19 91/45 (60) 100 Nasal Cannula 3.00 02/26/17 10:53 89 113/49 (70) 95 Nasal Cannula 2.00 I/O 02/26/17 02/26/17 02/26/17 02/27/17 02/27/17 02/27/17 07:00 15:00 23:00 07:00 15:00 23:00 Intake Total 1771 ml 1804 ml 1300 ml Output Total 1000 ml Balance 1771 ml 804 ml 1300 ml Intake Oral 400 ml IV Total 1055 ml 200 ml Packed Cells 650 ml 400 ml FFP 621 ml 614 ml Blood Product IV Normal Saline Flush 95 ml 340 ml 500 ml Output Urine Total 1000 ml # Voids 5 5 # Bowel Movements 2 (Kita Fabian MD, R3) Result Diagram: 02/27/17 0257 02/27/17 0440 Imaging Last Impressions Chest X-Ray 02/26/17 0904 Signed Impressions: Service Date/Time: Sunday, February 26, 2017 09:11 - CONCLUSION: 1. COPD changes. Tal Nur MD Objective Remarks GENERAL: This is a well-nourished, well-developed obese female patient , in no apparent distress. SKIN: No rashes or lesions. Cool and dry. Pallor improving. Multiple ecchymoses on upper extremities bilaterally. HEAD: Atraumatic. Normocephalic. No temporal or scalp tenderness. EYES: Pupils equal round and reactive. Extraocular motions intact. No scleral icterus. No injection or drainage. ENT: Nose without bleeding, purulent drainage or septal hematoma. Throat without erythema, tonsillar hypertrophy or exudate. Uvula midline. Airway patent. NECK: Trachea midline. No JVD or lymphadenopathy. Supple, nontender, no meningeal signs. CARDIOVASCULAR: Regular rate and rhythm without murmurs, gallops, or rubs. RESPIRATORY: Clear to auscultation. Breath sounds equal bilaterally. No wheezes , rales, or rhonchi. GASTROINTESTINAL: Abdomen soft, non-tender, nondistended. No hepato-splenomegaly , or palpable masses. No guarding. MUSCULOSKELETAL: Extremities without clubbing, cyanosis, or edema. No joint tenderness, effusion, or edema noted. No calf tenderness. NEUROLOGICAL: Awake and alert, oriented 3. Cranial nerves II through XII intact. Motor and sensory grossly within normal limits. Normal speech. (Kita Fabian MD, R3) A/P Assessment and Plan Patient is a 71-year-old female with past medical history significant for COPD, rheumatoid arthritis, atrial fibrillation on Coumadin, AKILAH, grade 1 diastolic dysfunction, and hypothyroidism who presented with weakness and shortness of breath and was admitted for supratherapeutic INR with upper GI bleed. Discharge Planning Unclear timetable given active GI bleed, pending resolution of GI bleed and stabilization of Hgb. sdw Dr. Skinner (Kita Fabian MD, R3) Attending Attestation Patient seen and examined with Dr Fabian. Case reviewed and discussed with the resident team. Agree with plan of care as discussed with me and documented in the resident note.Patient feeling less fatigued since transfusion. (Robert Skinner MD) Problem List: (1) GI bleed ICD Codes: K92.2 - Gastrointestinal hemorrhage, unspecified Status: Acute Plan: Pt has a h/o diverticulosis, PUD 2011, polyps, A-fib on Coumadin. On methotrexate for RA. No h/o chronic NSAID use, alcohol abuse, smoking, anemia, or corticosteroids. Previous EGD/colonoscopy in September 2016 significant for gastritis, hiatal hernia , moderate diverticulosis, sessile polyp, internal hemorrhoids. Pathology revealed erosive esophagitis and hyperplastic polyp in sigmoid colon. Hemoccult positive. Vitals stable today. H/H on admission was 6.2/19.2, s/p 3 units PRBC, now receiving another unit as hgb remains 6.5 INR has decreased from 6.2 to 1.5 today s/p 4 units FFP 02/26/17 EGD significant for large hiatal hernia, otherwise normal Plan: Protonix 40 mg IV BID for 72 hrs H/Hs Q6hrs- monitor results closely. Transfuse as needed. Consult GI- s/p EGD, capsule endoscopy as outpatient, SBFT today Supplemental O2 PRN. Pulse Ox. Hold all anticoagulation (Coumadin, Aspirin). SCDs for DVT prophylaxis. (2) Warfarin-induced coagulopathy ICD Codes: D68.9 - Coagulation defect, unspecified; T45.515A - Adverse effect of anticoagulants, initial encounter Status: Resolved Plan: On Coumadin for Atrial Fibrillation INR supratherapeutic at 6.2 in setting of active GI bleed on admission, INR now down to 1.5 s/p 10mg Vitamin K SQ and 4 units FFP -Hold home Coumadin for active GI bleed (3) Atrial fibrillation ICD Codes: I48.91 - Unspecified atrial fibrillation Status: Chronic Plan: Home dose of Coumadin 5 mg PO daily, currently held for GI bleed See above (4) COPD (chronic obstructive pulmonary disease) ICD Codes: J44.9 - Chronic obstructive pulmonary disease, unspecified Status: Chronic Plan: On 2L NC at home Continue home Breo and albuterol HFA Titrate O2 PRN (5) CHF (congestive heart failure), NYHA class I ICD Codes: I50.9 - Heart failure, unspecified Status: Chronic Plan: Continue Lasix 20mg PO daily and Metoprolol Tartrate 12.5mg PO BID (6) HLD (hyperlipidemia) ICD Codes: E78.5 - Hyperlipidemia, unspecified Status: Chronic Plan: Continue home statin (7) HTN (hypertension) ICD Codes: I10 - Essential (primary) hypertension Status: Chronic Plan: Continue home lisinopril 10mg PO daily and metoprolol tartrate 12.5mg PO BID (8) RA (rheumatoid arthritis) ICD Codes: M06.9 - Rheumatoid arthritis Status: Chronic Plan: Hold home methotrexate and Tocilizumab (9) Nutrition, metabolism, and development symptoms ICD Codes: R63.8 - Nutrition, metabolism, and development symptoms Status: Acute Plan: Fluids: None, pt with history of CHF avoid excess fluids Electrolytes: Within normal limits, continue to monitor Nutrition: clear liquid DVT PPX: Not indicated- active GI bleed. (Kita Fabian MD, R3) Problem Qualifiers (1) GI bleed: Qualified Codes: K92.2 - Gastrointestinal hemorrhage, unspecified (2) Atrial fibrillation: Qualified Codes: I48.0 - Paroxysmal atrial fibrillation (3) COPD (chronic obstructive pulmonary disease): Qualified Codes: J43.9 - Emphysema, unspecified (4) CHF (congestive heart failure), NYHA class I: Qualified Codes: I50.32 - Chronic diastolic (congestive) heart failure (5) HLD (hyperlipidemia): Qualified Codes: E78.5 - Hyperlipidemia, unspecified (6) HTN (hypertension): Qualified Codes: I10 - Essential (primary) hypertension (7) RA (rheumatoid arthritis): Qualified Codes: M06.9 - Rheumatoid arthritis, unspecified Kita Fabian MD, R3 Feb 27, 2017 10:32 Robert Skinner MD Feb 27, 2017 19:54
[2017-02-27] MEDS: PRAVASTATIN SOD 40 MG TAB PO SCH (13:30)
[2017-02-27] MEDS: METOPROLOL TARTRATE 25 MG TAB PO SCH ×2 (13:30→21:00)
[2017-02-27] MEDS: SODIUM CHLORIDE 0.9% FLUSH 10 ML FLUSH IV FLUSH SCH ×2 (13:31→21:33)
[2017-02-27] MEDS: FUROSEMIDE 20 MG TAB PO SCH (13:31)
[2017-02-27] MEDS: FOLIC ACID 1 MG TAB PO SCH (13:31)
[2017-02-27] MEDS: LISINOPRIL 10 MG TAB PO SCH (13:31)
[2017-02-27] MEDS: PANTOPRAZOLE SODIUM 40 MG VIAL IV PUSH SCH ×2 (13:32→21:35)
[2017-02-27 14:06] LABS: REVIEW FLAG FINAL
[2017-02-27] MEDS ORDERED: ALBUTEROL SULFATE 90 MCG/ACT HFA 8 GM INHALER INH PRN (16:00)
[2017-02-27] MEDS: FLUTICASONE 100 MCG/VILANTEROL 25 MCG INHALER INH SCH (16:09)
--- NOTE | 2017-02-27 18:06 | RADRPT ---
EXAM DATE/TIME: 02/27/2017 10:18 [facility] COMPARISON: No previous studies available for comparison. INDICATIONS : Anemia, gastrointestinal bleed etiology unclear. FLUORO TIME: 0 minutes IMAGE COUNT: 16 CONTRAST: Entero Vu 24% Barium Sulfate (24% w/v, 20% w/w) IMAGING TIME(S): 15 min, 30 min, 45 min, 1 hr, 1.5 hrs2 hr, 3, 5 1/2 MEDICAL HISTORY : Cardiovascular disease. Congestive heart failure. Hypertension. SURGICAL HISTORY : Cholecystectomy. ENCOUNTER: Initial ACUITY: 1 day PAIN SCORE: 0/10 LOCATION: Bilateral abdomen FINDINGS: The stomach and proximal and distal small bowel fill normally. There is no significant dilatation. Ho wever there is slow passage of contrast through the small bowel which does not reach the colon until the 5 hour exam. CONCLUSION: 1. No obstruction or dilatation. Slow passage of contrast which does not reach the colon until about 5 hours. Davi Greer MD on February 27, 2017 at 18:03 Board Certified Radiologist. This report was verified electronically.
[2017-02-27 18:17] LABS: REVIEW FLAG FINAL
--- NOTE | 2017-02-27 19:23 | HHI.FPPN ---
Addendum to progress note ADDENDUM Reason for addendum: Additonal documentation Additional information Discussed with patient and nursing staff; patient with continued dark colored stool today; repeat Hgb 7.1 at 1743. -Will transfuse an additional 2 U pRBC/ 2 U FFP Yoel Mclaughlin MD, R3 Feb 27, 2017 19:23
[2017-02-27] MEDS ORDERED: SODIUM CHLOR 0.9% 250 ML INJ 250 ML IV ONE (19:30)
[2017-02-28] VITALS (12 sets, daily range): BP systolic 90–107; BP diastolic 48–65; PULSE 67–79; RESP 18–22; TEMP 96.9–99.1; O2SAT 94–100
[2017-02-28] MEDS: CHLORHEXIDINE GLUCONATE 2 % 1 PACK (2 CLOTHS)(taper/protocol) TOPICAL SCH (02:00)
[2017-02-28] MEDS: LEVOTHYROXINE SODIUM 50 MCG TAB PO SCH (04:40)
[2017-02-28] MEDS: FUROSEMIDE 20 MG TAB PO SCH (08:01)
[2017-02-28] MEDS: PRAVASTATIN SOD 40 MG TAB PO SCH (08:01)
[2017-02-28] MEDS: FOLIC ACID 1 MG TAB PO SCH (08:01)
[2017-02-28] MEDS: METOPROLOL TARTRATE 25 MG TAB PO SCH ×2 (08:02→20:24)
[2017-02-28] MEDS: LISINOPRIL 10 MG TAB PO SCH (08:02)
[2017-02-28] MEDS: SODIUM CHLORIDE 0.9% FLUSH 10 ML FLUSH IV FLUSH SCH ×2 (08:02→20:23)
[2017-02-28] MEDS: PANTOPRAZOLE SODIUM 40 MG VIAL IV PUSH SCH ×2 (08:02→20:24)
[2017-02-28] MEDS: FLUTICASONE 100 MCG/VILANTEROL 25 MCG INHALER INH SCH (08:03)
--- NOTE | 2017-02-28 10:31 | HHI.FPPN ---
Subjective Remarks No acute issues overnight. Vitals are stable, patient remains afebrile. She continues to have dark stools. She is feeling much better overall. She is no longer short of breath and is feeling stronger. She received 2 more units of packed red blood cells overnight as well as 2 more units of FFP. She denies any chest pain, shortness of breath, fever, chills, nausea or vomiting. She is hoping to eat a regular meal today. (Kita Fabian MD, R3) Objective Vitals Vital Signs Date Time Temp Pulse Resp B/P (MAP) Pulse Ox O2 Delivery O2 Flow Rate FiO2 02/28/17 07:47 100 Nasal Cannula 2.00 02/28/17 06:00 68 02/28/17 04:00 98.7 76 22 97/48 (64) 99 02/28/17 04:00 76 02/28/17 02:56 99.1 78 20 95/53 96 02/28/17 02:00 68 02/28/17 00:00 98.5 67 21 90/53 (65) 100 02/28/17 00:00 98.5 71 20 90/53 94 02/28/17 00:00 67 02/27/17 23:15 98.5 72 22 103/44 96 02/27/17 22:00 72 02/27/17 21:54 98.5 72 23 79/41 100 02/27/17 21:21 98.6 71 16 84/45 97 02/27/17 20:00 74 02/27/17 20:00 98.8 74 21 92/63 (73) 94 02/27/17 19:27 99 Nasal Cannula 2.00 02/27/17 16:00 75 02/27/17 16:00 98.6 75 29 98/51 (67) 98 02/27/17 14:00 79 I/O 02/27/17 02/27/17 02/27/17 02/28/17 02/28/17 02/28/17 07:00 15:00 23:00 07:00 15:00 23:00 Intake Total 1300 ml 1412 ml 1620 ml Output Total 1200 ml 500 ml 200 ml Balance 1300 ml 212 ml 1120 ml -200 ml Intake Oral 400 ml 960 ml 900 ml IV Total 50 ml Packed Cells 400 ml 650 ml FFP 427 ml Blood Product IV Normal Saline Flush 500 ml 25 ml 20 ml Output Urine Total 1200 ml 500 ml 200 ml # Voids 5 3 # Bowel Movements 2 5 0 1 (Kita Fabian MD, R3) Result Diagram: 02/27/17 1743 02/27/17 0440 Imaging Last Impressions Small Bowel X-Ray 02/27/17 0000 Signed Impressions: Service Date/Time: Monday, February 27, 2017 10:18 - CONCLUSION: 1. No obstruction or dilatation. Slow passage of contrast which does not reach the colon until about 5 hours. Davi Greer MD Chest X-Ray 02/26/17 0904 Signed Impressions: Service Date/Time: Sunday, February 26, 2017 09:11 - CONCLUSION: 1. COPD changes. Tal Nur MD Objective Remarks GENERAL: This is a well-nourished, well-developed obese female patient , in no apparent distress. SKIN: No rashes or lesions. Cool and dry. Pallor has resolved. Multiple ecchymoses on upper extremities bilaterally. HEAD: Atraumatic. Normocephalic. No temporal or scalp tenderness. EYES: Pupils equal round and reactive. Extraocular motions intact. No scleral icterus. No injection or drainage. ENT: Nose without bleeding, purulent drainage or septal hematoma. Throat without erythema, tonsillar hypertrophy or exudate. Uvula midline. Airway patent. NECK: Trachea midline. No JVD or lymphadenopathy. Supple, nontender, no meningeal signs. CARDIOVASCULAR: Regular rate and rhythm without murmurs, gallops, or rubs. RESPIRATORY: Clear to auscultation. Breath sounds equal bilaterally. No wheezes , rales, or rhonchi. GASTROINTESTINAL: Abdomen soft, non-tender, nondistended. No hepato-splenomegaly , or palpable masses. No guarding. MUSCULOSKELETAL: Extremities without clubbing, cyanosis, or edema. No joint tenderness, effusion, or edema noted. No calf tenderness. NEUROLOGICAL: Awake and alert, oriented 3. Cranial nerves II through XII intact. Motor and sensory grossly within normal limits. Normal speech. (Kita Fabian MD, R3) A/P Assessment and Plan Patient is a 71-year-old female with past medical history significant for COPD, rheumatoid arthritis, atrial fibrillation on Coumadin, AKILAH, grade 1 diastolic dysfunction, and hypothyroidism who presented with weakness and shortness of breath and was admitted for supratherapeutic INR with upper GI bleed. Discharge Planning Unclear timetable given active GI bleed, pending resolution of GI bleed and stabilization of Hgb. sdw Dr. Skinner (Kita Fabian MD, R3) Attending Attestation Patient seen and examined with Dr. Fabian. Case reviewed and discussed with the resident team. Agree with plan of care as discussed with me and documented in the resident note. (Robert Skinner MD) Problem List: (1) GI bleed ICD Codes: K92.2 - Gastrointestinal hemorrhage, unspecified Status: Acute Plan: Pt has a h/o diverticulosis, PUD 2011, polyps, A-fib on Coumadin. On methotrexate for RA. No h/o chronic NSAID use, alcohol abuse, smoking, anemia, or corticosteroids. Previous EGD/colonoscopy in September 2016 significant for gastritis, hiatal hernia , moderate diverticulosis, sessile polyp, internal hemorrhoids. Pathology revealed erosive esophagitis and hyperplastic polyp in sigmoid colon. Hemoccult positive. Vitals remain stable. s/p 6 units PRBC and 6 units FFP INR has decreased from 6.2 to 1.5 02/26/17 EGD significant for large hiatal hernia, otherwise normal 02/27/17 SBFT significant for no obstruction or dilatation. Slow passage of contrast which does not reach the colon until about 5 hrs. Plan: Protonix 40 mg IV BID for 72 hrs H/H pending, continue to transfuse as indicated. If Hgb is stable today, will transfer off of unit Supplemental O2 PRN. Pulse Ox. Hold all anticoagulation (Coumadin, Aspirin). SCDs for DVT prophylaxis. (2) Warfarin-induced coagulopathy ICD Codes: D68.9 - Coagulation defect, unspecified; T45.515A - Adverse effect of anticoagulants, initial encounter Status: Resolved Plan: On Coumadin for Atrial Fibrillation INR supratherapeutic at 6.2 in setting of active GI bleed on admission, INR now down to 1.5 s/p 10mg Vitamin K SQ and 6 units FFP -Hold home Coumadin for active GI bleed (3) Atrial fibrillation ICD Codes: I48.91 - Unspecified atrial fibrillation Status: Chronic Plan: Home dose of Coumadin 5 mg PO daily, currently held for GI bleed See above (4) COPD (chronic obstructive pulmonary disease) ICD Codes: J44.9 - Chronic obstructive pulmonary disease, unspecified Status: Chronic Plan: On 2L NC at home Continue home Breo and albuterol HFA Titrate O2 PRN (5) CHF (congestive heart failure), NYHA class I ICD Codes: I50.9 - Heart failure, unspecified Status: Chronic Plan: Continue Lasix 20mg PO daily and Metoprolol Tartrate 12.5mg PO BID (6) HLD (hyperlipidemia) ICD Codes: E78.5 - Hyperlipidemia, unspecified Status: Chronic Plan: Continue home statin (7) HTN (hypertension) ICD Codes: I10 - Essential (primary) hypertension Status: Chronic Plan: Continue home lisinopril 10mg PO daily and metoprolol tartrate 12.5mg PO BID (8) RA (rheumatoid arthritis) ICD Codes: M06.9 - Rheumatoid arthritis Status: Chronic Plan: Hold home methotrexate and Tocilizumab (9) Nutrition, metabolism, and development symptoms ICD Codes: R63.8 - Nutrition, metabolism, and development symptoms Status: Acute Plan: Fluids: None, pt with history of CHF avoid excess fluids Electrolytes: Within normal limits, continue to monitor Nutrition: advance to heart healthy diet today DVT PPX: Not indicated- active GI bleed. (Kita Fabian MD, R3) Problem Qualifiers (1) GI bleed: Qualified Codes: K92.2 - Gastrointestinal hemorrhage, unspecified (2) Atrial fibrillation: Qualified Codes: I48.0 - Paroxysmal atrial fibrillation (3) COPD (chronic obstructive pulmonary disease): Qualified Codes: J43.9 - Emphysema, unspecified (4) CHF (congestive heart failure), NYHA class I: Qualified Codes: I50.32 - Chronic diastolic (congestive) heart failure (5) HLD (hyperlipidemia): Qualified Codes: E78.5 - Hyperlipidemia, unspecified (6) HTN (hypertension): Qualified Codes: I10 - Essential (primary) hypertension (7) RA (rheumatoid arthritis): Qualified Codes: M06.9 - Rheumatoid arthritis, unspecified Kita Fabian MD, R3 Feb 28, 2017 10:31 Robert Skinner MD Feb 28, 2017 16:38
[2017-02-28 10:58] LABS: AUTOMATED NEUTROPHIL # 9.4 TH/MM3 (1.8-7.7); BASOPHIL % 0.3 % (0.0-2.0); EOSINOPHIL # 0.2 TH/MM3 (0-0.4); EOSINOPHIL % 1.6 % (0.0-4.0); HEMATOCRIT 24.8 % (35.0-46.0); HEMO FLAGS DIFF FINAL; LYMPH % 7.8 % (9.0-44.0); LYMPHOCYTE # 0.9 TH/MM3 (1.0-4.8); MEAN CELL VOLUME 86.7 FL (80.0-100.0); MEAN CORPUSCULAR HEMOGLOBIN 29.4 PG (27.0-34.0); MONO % 9.1 % (0.0-8.0); NEUT % 81.2 % (16.0-70.0); PLATELET COUNT 122 TH/MM3 (150-450); RED BLOOD COUNT 2.86 MIL/MM3 (4.00-5.30); RED CELL DISTRIBUTION WIDTH 17.7 % (11.6-17.2); WHITE BLOOD COUNT 11.5 TH/MM3 (4.0-11.0)
--- NOTE | 2017-02-28 13:29 | HHI.GIFU ---
Subjective Remarks Up in chair. Eating lunch without difficulty. No n/v. No abdominal pain. Did have a dark stool earlier today. (Alaina Ochoa) Objective Vitals I&O Vital Signs Date Time Temp Pulse Resp B/P (MAP) Pulse Ox O2 Delivery O2 Flow Rate FiO2 02/28/17 12:00 70 02/28/17 12:00 98.4 70 20 105/55 (72) 98 02/28/17 10:00 71 02/28/17 08:00 71 02/28/17 08:00 98.6 72 20 103/49 (67) 95 02/28/17 07:47 100 Nasal Cannula 2.00 02/28/17 06:00 68 02/28/17 04:00 98.7 76 22 97/48 (64) 99 02/28/17 04:00 76 02/28/17 02:56 99.1 78 20 95/53 96 02/28/17 02:00 68 02/28/17 00:00 98.5 67 21 90/53 (65) 100 02/28/17 00:00 98.5 71 20 90/53 94 02/28/17 00:00 67 02/27/17 23:15 98.5 72 22 103/44 96 02/27/17 22:00 72 02/27/17 21:54 98.5 72 23 79/41 100 02/27/17 21:21 98.6 71 16 84/45 97 02/27/17 20:00 74 02/27/17 20:00 98.8 74 21 92/63 (73) 94 02/27/17 19:27 99 Nasal Cannula 2.00 02/27/17 16:00 75 02/27/17 16:00 98.6 75 29 98/51 (67) 98 02/27/17 14:00 79 I/O 02/27/17 02/27/17 02/27/17 02/28/17 02/28/17 02/28/17 07:00 15:00 23:00 07:00 15:00 23:00 Intake Total 1300 ml 425 ml 1412 ml 1620 ml Output Total 1200 ml 500 ml 200 ml Balance 1300 ml 425 ml 212 ml 1120 ml -200 ml Intake Oral 400 ml 960 ml 900 ml IV Total 50 ml Packed Cells 400 ml 400 ml 650 ml FFP 427 ml Blood Product IV Normal Saline Flush 500 ml 25 ml 25 ml 20 ml Output Urine Total 1200 ml 500 ml 200 ml # Voids 5 3 # Bowel Movements 2 5 0 1 Laboratory Laboratory Tests Test 02/27/17 13:30 02/27/17 17:43 02/28/17 09:50 Hemoglobin 7.1 7.1 8.4 Hematocrit 21.0 21.0 24.8 White Blood Count 11.5 Red Blood Count 2.86 Mean Corpuscular Volume 86.7 Mean Corpuscular Hemoglobin 29.4 Mean Corpuscular Hemoglobin Concent 34.0 Red Cell Distribution Width 17.7 Platelet Count 122 Mean Platelet Volume 8.5 Neutrophils (%) (Auto) 81.2 Lymphocytes (%) (Auto) 7.8 Monocytes (%) (Auto) 9.1 Eosinophils (%) (Auto) 1.6 Basophils (%) (Auto) 0.3 Neutrophils # (Auto) 9.4 Lymphocytes # (Auto) 0.9 Monocytes # (Auto) 1.0 Eosinophils # (Auto) 0.2 Basophils # (Auto) 0.0 CBC Comment DIFF FINAL Differential Comment Date/Time Source Procedure Growth Status 02/26/17 09:30 Urine Clean Catch Urine Culture - Final 50-100,000 CFU/ML MIXED SARI... Complete Imaging Last Impressions Small Bowel X-Ray 02/27/17 0000 Signed Impressions: Service Date/Time: Monday, February 27, 2017 10:18 - CONCLUSION: 1. No obstruction or dilatation. Slow passage of contrast which does not reach the colon until about 5 hours. Davi Greer MD Chest X-Ray 02/26/17 0904 Signed Impressions: Service Date/Time: Sunday, February 26, 2017 09:11 - CONCLUSION: 1. COPD changes. Tal Nur MD Physical Exam HEENT: Normocephalic; atraumatic; no jaundice. CHEST: CTA CARDIAC: Irregular ABDOMEN: Soft, nondistended, nontender; no hepatosplenomegaly; bowel sounds are present in all four quadrants. EXTREMITIES: No clubbing, cyanosis, or edema. SKIN: Normal; no rash; no jaundice. 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 (Alaina Ochoa) Assessment and Plan Plan ASSESSMENT: - Upper GIB, Melena. Hx PUD 2011. HH on admission 6.2/19.2. 2-3 week hx of sob/generalized weakness, melena x 3-4 days. EGD/colonoscopy (09/19/16)----> reflux esophagitis in the distal esophagus, acute gastritis was found in the gastric antrum, duodenal mucosa with no abnormalities, retroflex views revealed a medium hiatal hernia. There was moderate diverticulosis noted in the sigmoid colon, moderate diverticulosis was noted, sessile polyp ranging between 3-5 mm in size was found in the sigmoid colon, retroflex views revealed internal grade 1 hemorrhoids, a digital rectal exam was performed and revealed medium external hemorrhoids. Pathology revealed erosive esophagitis, negative for viral cytopathic effect or fungal organisms, negative for Naik's specialized columnar epithelium, hyperplastic polyp in the sigmoid colon. S/ P EGD (02/26/17)---> Large HH, normal EGD otherwise. S/P 6 units PRBC. No obvious active bleeding. HH 8.4/24.8. SBFT (02/27/17)- ---> No obstruction or dilatation. Slow passage of contrast which does not reach the colon until about 5 hours. Capsule endoscopy as outpatient. - Severe anemia secondary to acute blood loss. HH8.4/24.8. S/P 6 units PRBC. - Coagulopathy, Coumadin toxicity. INR 6.2 on admission. S/P Vitamin K, 6 units FFP ordered. INR 1.5. - Leukocytosis. WBC 11.5. - GERD. Protonix. - Atrial fibrillation. Coumadin at home- held for GIB/coagulopathy. Rate controlled - Anxiety, COPD, Emphysema, Chronic low back pain, HTN, RA, Hx TIA per attending. PLAN: - MARLENE (heart healthy) - Protonix 40mg IV BID dosing - Monitor HH - Transfuse as necessary - Supportive care - Capsule endoscopy as outpatient - Further recommendations to follow based on results of above - Pt seen and examined by Dr. Hendrickson and myself and this note is written on his behalf (Alaina Ochoa) Physician Comments Patient seen and examined Agree with above Continue with current supportive care Monitor labs Not much to add from a GI standpoint we will sign off Patient follow-up post discharge with GI for probable capsule endoscopy (Jimmy Hendrickson MD) Alaina Ochoa Feb 28, 2017 13:29 Jimmy Hendrickson MD Feb 28, 2017 15:47
[2017-02-28 16:43] LABS: HEMATOCRIT 23.9 % (35.0-46.0); REVIEW FLAG FINAL
[2017-03-01] VITALS (7 sets, daily range): BP systolic 92–127; BP diastolic 44–64; PULSE 70–88; RESP 17–23; TEMP 98–99.4; O2SAT 93–99
[2017-03-01] MEDS: CHLORHEXIDINE GLUCONATE 2 % 1 PACK (2 CLOTHS)(taper/protocol) TOPICAL SCH (05:06)
[2017-03-01] MEDS: LEVOTHYROXINE SODIUM 50 MCG TAB PO SCH (05:29)
[2017-03-01 06:42] LABS: INTERNATIONAL NORMALIZED RATIO 0.9 RATIO; PROTHROMBIN TIME - PATIENT 10.2 SEC (9.8-11.6)
[2017-03-01 06:45] LABS: HEMATOCRIT 24.6 % (35.0-46.0); MEAN CELL VOLUME 87.5 FL (80.0-100.0); MEAN CORPUSCULAR HEMOGLOBIN 30.2 PG (27.0-34.0); MEAN CORPUSCULAR HGB CONC 34.5 % (32.0-36.0); PLATELET COUNT 134 TH/MM3 (150-450); RED BLOOD COUNT 2.82 MIL/MM3 (4.00-5.30); RED CELL DISTRIBUTION WIDTH 17.5 % (11.6-17.2); REVIEW FLAG FINAL; WHITE BLOOD COUNT 9.9 TH/MM3 (4.0-11.0)
[2017-03-01 07:09] LABS: BICARBONATE 29.7 MEQ/L (21.0-32.0); POTASSIUM 4.1 MEQ/L (3.5-5.1)
[2017-03-01] MEDS ORDERED: FUROSEMIDE 20 MG/2 ML VIAL IV PUSH ONE (08:00)
[2017-03-01] MEDS: LISINOPRIL 10 MG TAB PO SCH (08:55)
[2017-03-01] MEDS: METOPROLOL TARTRATE 25 MG TAB PO SCH ×2 (08:55→20:30)
[2017-03-01] MEDS: SODIUM CHLORIDE 0.9% FLUSH 10 ML FLUSH IV FLUSH SCH ×2 (08:58→20:33)
[2017-03-01] MEDS: PANTOPRAZOLE SODIUM 40 MG VIAL IV PUSH SCH (08:58)
[2017-03-01] MEDS: PRAVASTATIN SOD 40 MG TAB PO SCH (08:58)
[2017-03-01] MEDS: FOLIC ACID 1 MG TAB PO SCH (08:58)
[2017-03-01] MEDS: ONDANSETRON HCL 4 MG/2 ML VIAL IV PRN (08:58)
[2017-03-01] MEDS: FUROSEMIDE 20 MG TAB PO SCH (08:59)
[2017-03-01] MEDS: FLUTICASONE 100 MCG/VILANTEROL 25 MCG INHALER INH SCH (09:00)
--- NOTE | 2017-03-01 10:00 | HHI.FPPN ---
Subjective Remarks No acute issues overnight. Vitals are stable, patient remains afebrile. Patient states that she has not felt well since waking up this morning. She has not had any further episodes of black or bloody stool, however she is feeling weak and nauseous today. She also notes an achiness in her lower back that is new since yesterday. She also feels like she is much "heavier" today than usual and that she is swollen. She denies any abdominal pain, chest pain, fever, chills, cough or shortness of breath. She is tolerating by mouth. (Kita Fabian MD, R3) Objective Vitals Vital Signs Date Time Temp Pulse Resp B/P (MAP) Pulse Ox O2 Delivery O2 Flow Rate FiO2 03/01/17 08:00 98.8 86 23 121/59 (79) 94 03/01/17 04:00 99.4 72 20 127/64 (85) 94 03/01/17 00:00 99.1 70 17 92/44 (60) 99 02/28/17 20:00 98.2 79 18 107/65 (79) 99 02/28/17 16:00 96.9 72 20 97/49 (65) 98 02/28/17 14:00 75 02/28/17 12:00 70 02/28/17 12:00 98.4 70 20 105/55 (72) 98 02/28/17 10:00 71 I/O 02/28/17 02/28/17 02/28/17 03/01/17 03/01/17 03/01/17 07:00 15:00 23:00 07:00 15:00 23:00 Intake Total 1620 ml 360 ml 480 ml Output Total 500 ml 200 ml Balance 1120 ml -200 ml 360 ml 480 ml Intake Oral 900 ml 360 ml 480 ml IV Total 50 ml Packed Cells 650 ml Blood Product IV Normal Saline Flush 20 ml Output Urine Total 500 ml 200 ml # Voids 2 2 # Bowel Movements 0 1 0 (Kita Fabian MD, R3) Result Diagram: 03/01/17 0520 03/01/17 0520 Imaging Last Impressions Small Bowel X-Ray 02/27/17 0000 Signed Impressions: Service Date/Time: Monday, February 27, 2017 10:18 - CONCLUSION: 1. No obstruction or dilatation. Slow passage of contrast which does not reach the colon until about 5 hours. Davi Greer MD Chest X-Ray 02/26/17 0904 Signed Impressions: Service Date/Time: Sunday, February 26, 2017 09:11 - CONCLUSION: 1. COPD changes. Tal Nur MD Objective Remarks GENERAL: This is a well-nourished, well-developed obese female patient , in no apparent distress. SKIN: No rashes or lesions. Cool and dry. Multiple ecchymoses on upper extremities bilaterally. HEAD: Atraumatic. Normocephalic. No temporal or scalp tenderness. EYES: Pupils equal round and reactive. Extraocular motions intact. No scleral icterus. No injection or drainage. ENT: Nose without bleeding, purulent drainage or septal hematoma. Throat without erythema, tonsillar hypertrophy or exudate. Uvula midline. Airway patent. NECK: Trachea midline. No JVD or lymphadenopathy. Supple, nontender, no meningeal signs. CARDIOVASCULAR: Regular rate and rhythm without murmurs, gallops, or rubs. RESPIRATORY: Clear to auscultation. Breath sounds equal bilaterally. No wheezes , rales, or rhonchi. GASTROINTESTINAL: Abdomen soft, non-tender, nondistended. No hepato-splenomegaly , or palpable masses. No guarding. MUSCULOSKELETAL: Extremities without clubbing, cyanosis, or edema. No joint tenderness, effusion, or edema noted. No calf tenderness. NEUROLOGICAL: Awake and alert, oriented 3. Cranial nerves II through XII intact. Motor and sensory grossly within normal limits. Normal speech. (Kita Fabian MD, R3) A/P Assessment and Plan Patient is a 71-year-old female with past medical history significant for COPD, rheumatoid arthritis, atrial fibrillation on Coumadin, AKILAH, grade 1 diastolic dysfunction, and hypothyroidism who presented with weakness and shortness of breath and was admitted for supratherapeutic INR with upper GI bleed. Discharge Planning Pending resolution of GI bleed and stabilization of Hgb, likely in the next 1-[address] Skinner (Kita Fabian MD, R3) Attending Attestation Patient seen and examined with Dr Matthew Fabian. Case reviewed and discussed with the resident team. Agree with plan of care as discussed with me and documented in the resident note. Patient fatigued this am and worried bleeding has resumed but has not had anymore melena. Hgb reassurring. (Robert Skinner MD) Problem List: (1) GI bleed ICD Codes: K92.2 - Gastrointestinal hemorrhage, unspecified Status: Resolved Plan: Pt has a h/o diverticulosis, PUD 2011, polyps, A-fib on Coumadin. On methotrexate for RA. No h/o chronic NSAID use, alcohol abuse, smoking, anemia, or corticosteroids. Previous EGD/colonoscopy in September 2016 significant for gastritis, hiatal hernia , moderate diverticulosis, sessile polyp, internal hemorrhoids. Pathology revealed erosive esophagitis and hyperplastic polyp in sigmoid colon. Hemoccult positive. Vitals remain stable. s/p 6 units PRBC and 6 units FFP INR has decreased from 6.2 to 0.9 today 02/26/17 EGD significant for large hiatal hernia, otherwise normal 02/27/17 SBFT significant for no obstruction or dilatation. Slow passage of contrast which does not reach the colon until about 5 hrs. Plan: Given weakness today, concern for further GI bleeding, will repeat H/H this afternoon, continue to transfuse as indicated. Will obtain Abd/Pelvis CT for further evaluation. Transition from Protonix 40 mg IV BID to Protonix 40mg PO daily Supplemental O2 PRN. Pulse Ox. Hold all anticoagulation (Coumadin, Aspirin). SCDs for DVT prophylaxis. (2) Warfarin-induced coagulopathy ICD Codes: D68.9 - Coagulation defect, unspecified; T45.515A - Adverse effect of anticoagulants, initial encounter Status: Resolved Plan: On Coumadin for Atrial Fibrillation INR supratherapeutic at 6.2 in setting of active GI bleed on admission, INR now down to 0.9 s/p 10mg Vitamin K SQ and 6 units FFP -Hold home Coumadin for active GI bleed (3) Atrial fibrillation ICD Codes: I48.91 - Unspecified atrial fibrillation Status: Chronic Plan: Home dose of Coumadin 5 mg PO daily, currently held for GI bleed See above (4) COPD (chronic obstructive pulmonary disease) ICD Codes: J44.9 - Chronic obstructive pulmonary disease, unspecified Status: Chronic Plan: On 2L NC at home Continue home Breo and albuterol HFA Titrate O2 PRN (5) CHF (congestive heart failure), NYHA class I ICD Codes: I50.9 - Heart failure, unspecified Status: Chronic Plan: s/p 2 units PRBC yesterday without Lasix, will give dose of Lasix 20mg IV today to alleviate edema. Continue Lasix 20mg PO daily and Metoprolol Tartrate 12.5mg PO BID (6) HLD (hyperlipidemia) ICD Codes: E78.5 - Hyperlipidemia, unspecified Status: Chronic Plan: Continue home statin (7) HTN (hypertension) ICD Codes: I10 - Essential (primary) hypertension Status: Chronic Plan: Decrease lisinopril from 10mg to 5mg PO daily given low BP's Continue metoprolol tartrate 12.5mg PO BID (8) RA (rheumatoid arthritis) ICD Codes: M06.9 - Rheumatoid arthritis Status: Chronic Plan: Hold home methotrexate and Tocilizumab (9) Nutrition, metabolism, and development symptoms ICD Codes: R63.8 - Nutrition, metabolism, and development symptoms Status: Acute Plan: Fluids: None, pt with history of CHF avoid excess fluids Electrolytes: Within normal limits, continue to monitor Nutrition: heart healthy diet today DVT PPX: SCD's, chemical anticoagulation not indicated in setting of active GI bleed. (Kita Fabian MD, R3) Problem Qualifiers (1) GI bleed: Qualified Codes: K92.2 - Gastrointestinal hemorrhage, unspecified (2) Atrial fibrillation: Qualified Codes: I48.0 - Paroxysmal atrial fibrillation (3) COPD (chronic obstructive pulmonary disease): Qualified Codes: J43.9 - Emphysema, unspecified (4) CHF (congestive heart failure), NYHA class I: Qualified Codes: I50.32 - Chronic diastolic (congestive) heart failure (5) HLD (hyperlipidemia): Qualified Codes: E78.5 - Hyperlipidemia, unspecified (6) HTN (hypertension): Qualified Codes: I10 - Essential (primary) hypertension (7) RA (rheumatoid arthritis): Qualified Codes: M06.9 - Rheumatoid arthritis, unspecified Kita Fabian MD, R3 Mar 01, 2017 10:00 Robert Skinner MD Mar 02, 2017 12:33
[2017-03-01 13:39] LABS: HEMATOCRIT 25.1 % (35.0-46.0); REVIEW FLAG FINAL
[2017-03-02 00:30] VITALS: BP 111/54; PULSE 73; RESP 20; TEMP 98.2; O2SAT 98
[2017-03-02 04:00] VITALS: BP 130/60; PULSE 74; RESP 20; TEMP 98; O2SAT 100
[2017-03-02] MEDS: CHLORHEXIDINE GLUCONATE 2 % 1 PACK (2 CLOTHS)(taper/protocol) TOPICAL SCH (05:27)
[2017-03-02] MEDS: LEVOTHYROXINE SODIUM 50 MCG TAB PO SCH (05:28)
[2017-03-02 06:46] LABS: HEMATOCRIT 24.1 % (35.0-46.0); MEAN CELL VOLUME 88.9 FL (80.0-100.0); MEAN CORPUSCULAR HGB CONC 33.7 % (32.0-36.0); PLATELET COUNT 150 TH/MM3 (150-450); RED BLOOD COUNT 2.71 MIL/MM3 (4.00-5.30); RED CELL DISTRIBUTION WIDTH 17.2 % (11.6-17.2); REVIEW FLAG FINAL; WHITE BLOOD COUNT 7.7 TH/MM3 (4.0-11.0)
[2017-03-02 07:12] LABS: BICARBONATE 33.1 MEQ/L (21.0-32.0)
[2017-03-02 08:32] VITALS: BP 124/58; PULSE 75; RESP 22; TEMP 99.2; O2SAT 97
[2017-03-02] MEDS ORDERED: PANTOPRAZOLE SOD 40 MG DELAYED RELEASE TAB PO SCH (09:00)
[2017-03-02] MEDS ORDERED: LISINOPRIL 10 MG TAB PO SCH (09:00)
--- NOTE | 2017-03-02 09:04 | RADRPT ---
EXAM DATE/TIME: 03/02/2017 08:49 [facility] COMPARISON: No previous studies available for comparison. INDICATIONS : Evaluate for residual contrast prior to CT exam. MEDICAL HISTORY : Cardiovascular disease. Congestive heart failure. Hypertension. SURGICAL HISTORY : Cholecystectomy. ENCOUNTER: Subsequent ACUITY: 3 days PAIN SCORE: 0/10 LOCATION: abdomen FINDINGS: Supine view of the abdomen was performed. Residual contrast in the rectum. The abdominal bowel gas p attern is normal. No abnormal masses, calcifications, or organomegaly is seen. The osseous structur es are unremarkable. CONCLUSION: Residual contrast in the rectum. Campos Valenzuela MD on March 02, 2017 at 8:57 Board Certified Radiologist. This report was verified electronically.
[2017-03-02] MEDS: METOPROLOL TARTRATE 25 MG TAB PO SCH (10:15)
[2017-03-02] MEDS: PRAVASTATIN SOD 40 MG TAB PO SCH (10:15)
[2017-03-02] MEDS: FUROSEMIDE 20 MG TAB PO SCH (10:15)
[2017-03-02] MEDS: SODIUM CHLORIDE 0.9% FLUSH 10 ML FLUSH IV FLUSH SCH (10:18)
[2017-03-02] MEDS: FLUTICASONE 100 MCG/VILANTEROL 25 MCG INHALER INH SCH (10:18)
[2017-03-02] MEDS: FOLIC ACID 1 MG TAB PO SCH (10:19)
[2017-03-02] MEDS ORDERED: PANT40TA3 PO (10:29)
--- NOTE | 2017-03-02 10:30 | HHI.DCPOC ---
Discharge Care Plan Diagnosis: (1) GI bleed (2) Warfarin-induced coagulopathy Goals to Promote Your Health * To prevent worsening of your condition and complications * To maintain your health at the optimal level Directions to Meet Your Goals Take your medications as prescribed Follow your dietary instruction Follow activity as directed Keep your appointments as scheduled Take your immunizations and boosters as scheduled If your symptoms worsen call your PCP, if no PCP go to Urgent Care Center or Emergency Room Smoking is Dangerous to Your Health. Avoid second hand smoke Call the 24-hour hour crisis hotline for domestic abuse at Kita Fabian MD, R3 Mar 02, 2017 10:30
--- NOTE | 2017-03-02 10:32 | HHI.FF ---
Face to Face Verification Diagnosis: (1) GI bleed (2) Warfarin-induced coagulopathy Physical Therapy Order: Evaluate and Treat, Improve ambulation, Strength and gait training I have seen patient Jennifer Ocasio on 03/02/17. My clinical findings support the need for the requested home health care services because: Ltd mobility - disease progression Patient has SOB Deconditioned w/ increased weakness I certify that my clinical findings support that this patient is homebound because: Unsteady gait/balance Kita Fabian MD, R3 Mar 02, 2017 10:32
--- NOTE | 2017-03-02 11:01 | HHI.FPPN ---
Subjective Remarks No acute issues overnight. Vitals are stable, patient remains afebrile. She is feeling better overall but still not back to baseline. She ambulated well with physical therapy and has been tolerating PO. She has not had any further black or bloody bowel movements. She denies any chest pain, shortness of breath, fever , chills, nausea or vomiting. (Kita Houston MD, R3) Objective Vitals Vital Signs Date Time Temp Pulse Resp B/P (MAP) Pulse Ox O2 Delivery O2 Flow Rate FiO2 03/02/17 08:32 99.2 75 22 124/58 (80) 97 03/02/17 04:00 98.0 74 20 130/60 (83) 100 03/02/17 00:30 98.2 73 20 111/54 (73) 98 03/01/17 21:18 Nasal Cannula 3.00 03/01/17 20:35 98.8 82 22 118/49 (72) 98 03/01/17 16:00 98.1 88 22 110/59 (76) 95 03/01/17 12:51 98.0 85 21 121/47 (71) 96 03/01/17 12:06 93 Nasal Cannula 3.00 I/O 03/01/17 03/01/17 03/01/17 03/02/17 03/02/17 03/02/17 07:00 15:00 23:00 07:00 15:00 23:00 Intake Total 480 ml 1580 ml Balance 480 ml 1580 ml Intake Oral 480 ml 1580 ml # Voids 2 9 0 # Bowel Movements 1 0 (Kita Houston MD, R3) Result Diagram: 03/02/17 0552 03/02/17 0552 Imaging Last Impressions Abdomen X-Ray 03/02/17 0000 Signed Impressions: Service Date/Time: Thursday, March 02, 2017 08:49 - CONCLUSION: Residual contrast in the rectum. Campos Valenzuela MD Small Bowel X-Ray 02/27/17 0000 Signed Impressions: Service Date/Time: Monday, February 27, 2017 10:18 - CONCLUSION: 1. No obstruction or dilatation. Slow passage of contrast which does not reach the colon until about 5 hours. Davi Greer MD Chest X-Ray 02/26/17 0904 Signed Impressions: Service Date/Time: Sunday, February 26, 2017 09:11 - CONCLUSION: 1. COPD changes. Tal Nur MD Objective Remarks GENERAL: This is a well-nourished, well-developed obese female patient sitting in bed eating breakfast, in no apparent distress. SKIN: No rashes or lesions. Cool and dry. Multiple ecchymoses on upper extremities bilaterally. HEAD: Atraumatic. Normocephalic. No temporal or scalp tenderness. EYES: Pupils equal round and reactive. Extraocular motions intact. No scleral icterus. No injection or drainage. ENT: Moist mucous membranes. NECK: Trachea midline. No JVD or lymphadenopathy. Supple, nontender, no meningeal signs. CARDIOVASCULAR: Regular rate and rhythm without murmurs, gallops, or rubs. RESPIRATORY: Clear to auscultation. Breath sounds equal bilaterally. No wheezes , rales, or rhonchi. GASTROINTESTINAL: Abdomen soft, non-tender, nondistended. No hepato-splenomegaly , or palpable masses. No guarding. MUSCULOSKELETAL: Extremities without clubbing, cyanosis, or edema. No joint tenderness, effusion, or edema noted. No calf tenderness. NEUROLOGICAL: Awake and alert, oriented 3. Cranial nerves II through XII intact. Motor and sensory grossly within normal limits. Normal speech. (Kita Houston MD, R3) A/P Assessment and Plan Patient is a 71-year-old female with past medical history significant for COPD, rheumatoid arthritis, atrial fibrillation on Coumadin, AKILAH, grade 1 diastolic dysfunction, and hypothyroidism who presented with weakness and shortness of breath and was admitted for supratherapeutic INR with upper GI bleed. Discharge Planning Anticipate discharge home today. sdw Dr. Skinner (Kita Houston MD, R3) Attending Attestation THIS CASE WAS DISCUSSED WITH THE RESIDENT PHYSICIANS. PATIENT INTERVIEWED AND EXAMINED WITH DR HOUSTON, I HAVE REVIEWED THE RECORD AND AGREE WITH THE ABOVE NOTE AND PLAN OF CARE WAS DISCUSSED. PATIENT HAPPY ABOUT RETURNING HOME. (Robert Skinner MD) Problem List: (1) GI bleed ICD Codes: K92.2 - Gastrointestinal hemorrhage, unspecified Status: Resolved Plan: Pt has a h/o diverticulosis, PUD 2011, polyps, A-fib on Coumadin. On methotrexate for RA. No h/o chronic NSAID use, alcohol abuse, smoking, anemia, or corticosteroids. Previous EGD/colonoscopy in September 2016 significant for gastritis, hiatal hernia , moderate diverticulosis, sessile polyp, internal hemorrhoids. Pathology revealed erosive esophagitis and hyperplastic polyp in sigmoid colon. Hemoccult positive. Vitals remain stable. s/p 6 units PRBC and 6 units FFP INR has decreased from 6.2 to 0.9 today 02/26/17 EGD significant for large hiatal hernia, otherwise normal 02/27/17 SBFT significant for no obstruction or dilatation. Slow passage of contrast which does not reach the colon until about 5 hrs. Plan: Hgb stable and no additional episodes of black/bloody stool. Will forgo Abd/Pelvis CT. Continue Protonix 40mg PO daily Supplemental O2 PRN. Pulse Ox. Hold all anticoagulation (Coumadin, Aspirin) until evaluated with capsule endoscopy. SCDs for DVT prophylaxis. (2) Warfarin-induced coagulopathy ICD Codes: D68.9 - Coagulation defect, unspecified; T45.515A - Adverse effect of anticoagulants, initial encounter Status: Resolved Plan: On Coumadin for Atrial Fibrillation INR supratherapeutic at 6.2 in setting of active GI bleed on admission, INR now down to 0.9 s/p 10mg Vitamin K SQ and 6 units FFP -Hold home Coumadin until capsule endoscopy (3) Atrial fibrillation ICD Codes: I48.91 - Unspecified atrial fibrillation Status: Chronic Plan: Home dose of Coumadin 5 mg PO daily, currently held until capsule endoscopy (4) COPD (chronic obstructive pulmonary disease) ICD Codes: J44.9 - Chronic obstructive pulmonary disease, unspecified Status: Chronic Plan: On 2L NC at home Continue home Breo and albuterol HFA Titrate O2 PRN (5) CHF (congestive heart failure), NYHA class I ICD Codes: I50.9 - Heart failure, unspecified Status: Chronic Plan: Stable. Continue Lasix 20mg PO daily and Metoprolol Tartrate 12.5mg PO BID (6) HLD (hyperlipidemia) ICD Codes: E78.5 - Hyperlipidemia, unspecified Status: Chronic Plan: Continue home statin (7) HTN (hypertension) ICD Codes: I10 - Essential (primary) hypertension Status: Chronic Plan: Continue lisinopril 5mg PO daily given low BP's Continue metoprolol tartrate 12.5mg PO BID (8) RA (rheumatoid arthritis) ICD Codes: M06.9 - Rheumatoid arthritis Status: Chronic Plan: Hold home methotrexate and Tocilizumab, will resume as outpatient (9) Nutrition, metabolism, and development symptoms ICD Codes: R63.8 - Nutrition, metabolism, and development symptoms Status: Acute Plan: Fluids: None, pt with history of CHF avoid excess fluids Electrolytes: Within normal limits, continue to monitor Nutrition: heart healthy diet today DVT PPX: SCD's (Kita Houston MD, R3) Problem Qualifiers (1) GI bleed: Qualified Codes: K92.2 - Gastrointestinal hemorrhage, unspecified (2) Atrial fibrillation: Qualified Codes: I48.0 - Paroxysmal atrial fibrillation (3) COPD (chronic obstructive pulmonary disease): Qualified Codes: J43.9 - Emphysema, unspecified (4) CHF (congestive heart failure), NYHA class I: Qualified Codes: I50.32 - Chronic diastolic (congestive) heart failure (5) HLD (hyperlipidemia): Qualified Codes: E78.5 - Hyperlipidemia, unspecified (6) HTN (hypertension): Qualified Codes: I10 - Essential (primary) hypertension (7) RA (rheumatoid arthritis): Qualified Codes: M06.9 - Rheumatoid arthritis, unspecified Kita Houston MD, R3 Mar 02, 2017 11:01 Robert Skinner MD Mar 02, 2017 15:34
[2017-03-02 12:07] VITALS: BP 108/53; PULSE 74; RESP 20; TEMP 98; O2SAT 97
--- NOTE | 2017-03-03 09:39 | HHI.DS ---
Discharge Summary Admission Date Feb 26, 2017 at 09:58 Discharge Date: Mar 02, 2017 Admitting Diagnosis anemia, GI bleed, warfarin coagulopathy (1) GI bleed Diagnosis: Principal Plan: Pt has a h/o diverticulosis, PUD 2011, polyps, A-fib on Coumadin. On methotrexate for RA. No h/o chronic NSAID use, alcohol abuse, smoking, anemia, or corticosteroids. Previous EGD/colonoscopy in September 2016 significant for gastritis, hiatal hernia , moderate diverticulosis, sessile polyp, internal hemorrhoids. Pathology revealed erosive esophagitis and hyperplastic polyp in sigmoid colon. Hemoccult positive. Vitals remain stable. s/p 6 units PRBC and 6 units FFP INR has decreased from 6.2 to 0.9 today 02/26/17 EGD significant for large hiatal hernia, otherwise normal 02/27/17 SBFT significant for no obstruction or dilatation. Slow passage of contrast which does not reach the colon until about 5 hrs. Plan: Hgb stable and no additional episodes of black/bloody stool. Will forgo Abd/Pelvis CT. Continue Protonix 40mg PO daily Supplemental O2 PRN. Pulse Ox. Hold all anticoagulation (Coumadin, Aspirin) until evaluated with capsule endoscopy. SCDs for DVT prophylaxis. ICD Codes: K92.2 - Gastrointestinal hemorrhage, unspecified Status: Resolved (2) Warfarin-induced coagulopathy Plan: On Coumadin for Atrial Fibrillation INR supratherapeutic at 6.2 in setting of active GI bleed on admission, INR now down to 0.9 s/p 10mg Vitamin K SQ and 6 units FFP -Hold home Coumadin until capsule endoscopy ICD Codes: D68.9 - Coagulation defect, unspecified; T45.515A - Adverse effect of anticoagulants, initial encounter Status: Resolved (3) Atrial fibrillation Plan: Home dose of Coumadin 5 mg PO daily, currently held until capsule endoscopy ICD Codes: I48.91 - Unspecified atrial fibrillation Status: Chronic (4) COPD (chronic obstructive pulmonary disease) Plan: On 2L NC at home Continue home Breo and albuterol HFA Titrate O2 PRN ICD Codes: J44.9 - Chronic obstructive pulmonary disease, unspecified Status: Chronic (5) CHF (congestive heart failure), NYHA class I Plan: Stable. Continue Lasix 20mg PO daily and Metoprolol Tartrate 12.5mg PO BID ICD Codes: I50.9 - Heart failure, unspecified Status: Chronic (6) HLD (hyperlipidemia) Plan: Continue home statin ICD Codes: E78.5 - Hyperlipidemia, unspecified Status: Chronic (7) HTN (hypertension) Plan: Continue lisinopril 5mg PO daily given low BP's Continue metoprolol tartrate 12.5mg PO BID ICD Codes: I10 - Essential (primary) hypertension Status: Chronic (8) RA (rheumatoid arthritis) Plan: Hold home methotrexate and Tocilizumab, will resume as outpatient ICD Codes: M06.9 - Rheumatoid arthritis Status: Chronic (9) Nutrition, metabolism, and development symptoms Plan: Fluids: None, pt with history of CHF avoid excess fluids Electrolytes: Within normal limits, continue to monitor Nutrition: heart healthy diet today DVT PPX: SCD's ICD Codes: R63.8 - Nutrition, metabolism, and development symptoms Status: Acute Consult[facility] GI Procedures 02/26/17 EGD significant for large hiatal hernia, otherwise normal Brief History On admission: Patient is a 71-year-old female with past medical history significant for COPD, rheumatoid arthritis, atrial fibrillation on Coumadin, AKILAH, grade 1 diastolic dysfunction, and hypothyroidism who presents today for weakness and shortness of breath. Patient states that she has been feeling progressively weaker since last week. She states that she had symptoms of audible wheezing last week and was evaluated at the [facility] on 02/22 where her exam was benign. Patient states that she has been feeling out of breath with a mild, occasional cough that is sometimes productive of greenish yellow/brown sputum. She has not been coughing up blood. She is usually on 2 L NC at home during the day and night. She also wears CPAP at night for AKILAH. For the past 34 days she has noticed black stools. She states that she has not been keeping track of how many bowel movements she has had but would not describe her bowel movements as frequent diarrhea. She initially thought the black stool was secondary to eating a lot of spinach and broccoli, however this morning she had a large bowel movement of black stool and she became concerned. She denies any abdominal pain, nausea, vomiting, or food intolerance. She has not noticed any bright red blood per the rectum. She states she has never had a GI bleed in the past. Her last colonoscopy was within the last 6 months. She is on Coumadin for atrial fibrillation but has not had complications with bleeding in the past. CBC/BMP: 03/02/17 0552 03/02/17 0552 Significant Findings Laboratory Tests Test 02/28/17 09:50 02/28/17 16:29 03/01/17 05:20 03/01/17 13:07 White Blood Count 11.5 TH/MM3 (4.0-11.0) Red Blood Count 2.86 MIL/MM3 (4.00-5.30) 2.82 MIL/MM3 (4.00-5.30) Hemoglobin 8.4 GM/DL (11.6-15.3) 8.2 GM/DL (11.6-15.3) 8.5 GM/DL (11.6-15.3) 8.5 GM/DL (11.6-15.3) Hematocrit 24.8 % (35.0-46.0) 23.9 % (35.0-46.0) 24.6 % (35.0-46.0) 25.1 % (35.0-46.0) Red Cell Distribution Width 17.7 % (11.6-17.2) 17.5 % (11.6-17.2) Platelet Count 122 TH/MM3 (150-450) 134 TH/MM3 (150-450) Neutrophils (%) (Auto) 81.2 % (16.0-70.0) Lymphocytes (%) (Auto) 7.8 % (9.0-44.0) Monocytes (%) (Auto) 9.1 % (0.0-8.0) Neutrophils # (Auto) 9.4 TH/MM3 (1.8-7.7) Lymphocytes # (Auto) 0.9 TH/MM3 (1.0-4.8) Monocytes # (Auto) 1.0 TH/MM3 (0-0.9) Blood Urea Nitrogen 27 MG/DL (7-18) Creatinine 1.16 MG/DL (0.50-1.00) Calcium Level 8.2 MG/DL (8.5-10.1) Estimat Glomerular Filtration Rate 46 ML/MIN (>89) Test 03/02/17 05:52 Red Blood Count 2.71 MIL/MM3 (4.00-5.30) Hemoglobin 8.1 GM/DL (11.6-15.3) Hematocrit 24.1 % (35.0-46.0) Creatinine 1.16 MG/DL (0.50-1.00) Carbon Dioxide Level 33.1 MEQ/L (21.0-32.0) Anion Gap 4 MEQ/L (5-15) Estimat Glomerular Filtration Rate 46 ML/MIN (>89) Imaging Last Impressions Abdomen X-Ray 03/02/17 0000 Signed Impressions: Service Date/Time: Thursday, March 02, 2017 08:49 - CONCLUSION: Residual contrast in the rectum. Campos Valenzuela MD Small Bowel X-Ray 02/27/17 0000 Signed Impressions: Service Date/Time: Monday, February 27, 2017 10:18 - CONCLUSION: 1. No obstruction or dilatation. Slow passage of contrast which does not reach the colon until about 5 hours. Davi Greer MD Chest X-Ray 02/26/17 0904 Signed Impressions: Service Date/Time: Sunday, February 26, 2017 09:11 - CONCLUSION: 1. COPD changes. Tal Nur MD PE at Discharge GENERAL: This is a well-nourished, well-developed obese female patient sitting in bed eating breakfast, in no apparent distress. SKIN: No rashes or lesions. Cool and dry. Multiple ecchymoses on upper extremities bilaterally. HEAD: Atraumatic. Normocephalic. No temporal or scalp tenderness. EYES: Pupils equal round and reactive. Extraocular motions intact. No scleral icterus. No injection or drainage. ENT: Moist mucous membranes. NECK: Trachea midline. No JVD or lymphadenopathy. Supple, nontender, no meningeal signs. CARDIOVASCULAR: Regular rate and rhythm without murmurs, gallops, or rubs. RESPIRATORY: Clear to auscultation. Breath sounds equal bilaterally. No wheezes , rales, or rhonchi. GASTROINTESTINAL: Abdomen soft, non-tender, nondistended. No hepato-splenomegaly , or palpable masses. No guarding. MUSCULOSKELETAL: Extremities without clubbing, cyanosis, or edema. No joint tenderness, effusion, or edema noted. No calf tenderness. NEUROLOGICAL: Awake and alert, oriented 3. Cranial nerves II through XII intact. Motor and sensory grossly within normal limits. Normal speech. Hospital Course Patient is a 71-year-old female with past medical history significant for COPD, rheumatoid arthritis, atrial fibrillation on Coumadin, AKILAH, grade 1 diastolic dysfunction, and hypothyroidism who presented with weakness and shortness of breath and was admitted for supratherapeutic INR with upper GI bleed. INR was supratherapeutic at 6.2 in setting of active GI bleed on admission and patient was treated with 10mg Vitamin K SQ and 4 units FFP with subsequent decrease in INR to 0.9. Patient was found to have severe acute anemia on admission with a H/ H of 6.2/19.2. She received 4 units PRBC on admission and Protonix 40mg IV BID x 72 hours before transitioning to PO Protonix 40mg PO daily. Her GI bleeding continued with black, tarry stools, and she was given an additional 2 units PRBC and 2 units FFP on hospital day 2-3. GI, Dr. Hendrickson, was consulted and performed an EGD on 02/26 significant for large hiatal hernia, but otherwise normal. GI then ordered a small bowel follow through study which showed slow passage of contrast. She is to follow-up with GI as an outpatient for possible capsule endoscopy. In terms of atrial fibrillation, Coumadin and aspirin were held during hospitalization for active GI bleed. Patient is advised to follow- up with her bucket hooker after the capsule endoscopy for resumption of anticoagulation. Patient was discharge home with home health PT once her Hgb stabilized and she was clinically stable. Pt Condition on Discharge: Stable Discharge Disposition: Disch w/ Home Health Serv Discharge Instructions DIET: Follow Instructions for: Heart Healthy Diet Activities you can perform: Regular-No Restrictions Follow up Referrals: Cardiology - 2 Weeks Gastroenterology - 1 Week with Jimmy Hendrickson MD PCP Follow-up - 2 Weeks New Orders: CBC WITH DIFF - 1 Week New Medications: Pantoprazole (Pantoprazole) 40 Mg Tab 40 MG PO DAILY, #30 TAB Continued Medications: Albuterol 18 GM Inh (Ventolin Hfa 18 GM Inh) 90 Mcg/Act Aer 2 PUFF INH Q6HR, #1 INHALER 1 Refill Calcium Carbonate-Cholecalciferol (Calcium 600 with Vitamin D) 600-400 mg-Unit Tab 1 TAB PO DAILY for Calcium Supplement, TAB 0 Refills Fluticasone-Vilanterol Inh (Breo Ellipta Inh) 100-25 Mcg/Act Inh 1 PUFF INH DAILY, #1 INHALER 1 Refill Folic Acid (Folic Acid) 400 Mcg Tab 400 MCG PO DAILY for Nutritional Supplement, TAB 0 Refills Furosemide (Lasix) 20 Mg Tab 20 MG PO DAILY, #30 TAB 0 Refills Hydrocortisone Rectal 2.5% (Proctosol Hc 2.5%) 2.5% Cream 1 APPLIC RECTAL BID PRN for PAIN/INFLAMMATION, #1 TUBE 0 Refills Levothyroxine (Levothyroxine) 50 Mcg Tab 50 MCG PO DAILY for Thyroid, #30 TAB 0 Refills Lisinopril (Lisinopril) 10 Mg Tab 10 MG PO DAILY, #30 TAB 0 Refills Magnesium Oxide (Magnesium Oxide) 250 Mg Tab Methotrexate Inj (Methotrexate Inj) 50 Mg/2 Ml Inj Pravastatin (Pravastatin) 40 Mg Tab 40 MG PO DAILY for Cholesterol Management, #30 TAB 11 Refills Tocilizumab Inj (Actemra Inj) 162 Mg/0.9 Ml Inj Discontinued Medications: Aspirin (Aspirin) 81 Mg Chew 81 MG CHEW DAILY, TAB 0 Refills Omeprazole (Omeprazole) 10 Mg Cap 10 MG PO DAILY, #30 CAP 0 Refills Warfarin (Warfarin) 5 Mg Tab 5 MG PO DAILY for Blood Clot Prevention, #30 TAB 0 Refills 5 days a week, pt is to take 10mg and 2 days a week, pt is to take 7.5mg Kita Fabian MD, R3 Mar 03, 2017 09:39
== END 2017-03-02 13:54 | disposition home health service (06) | DRG 813 ==
LOC: NEPC 07:41 → NEDA 09:58 → HIMW 14:00 → HOCA 02-28 14:50
PROVIDERS: ADMIT Family Medicine; ATTEND Family Medicine
PROC: 30233K1 Transfusion of Nonautologous Frozen Plasma into Peripheral Vein, Percutaneous Approach (ICD-10-PCS; 2017-02-26)
PROC: 30233N1 Transfusion of Nonautologous Red Blood Cells into Peripheral Vein, Percutaneous Approach (ICD-10-PCS; 2017-02-26)
PROC: 0DJ08ZZ Inspection of Upper Intestinal Tract, Via Natural or Artificial Opening Endoscopic (ICD-10-PCS; principal; 2017-02-26 17:30)
DX: D68.32 Hemorrhagic disorder due to extrinsic circulating anticoagulants (principal); I50.9 Heart failure, unspecified; K92.2 Gastrointestinal hemorrhage, unspecified; D62 Acute posthemorrhagic anemia; I48.91 Unspecified atrial fibrillation; Z68.41 Body mass index [BMI] 40.0-44.9, adult; Z79.01 Long term (current) use of anticoagulants; Z79.82 Long term (current) use of aspirin; J44.9 Chronic obstructive pulmonary disease, unspecified; M06.9 Rheumatoid arthritis, unspecified; Z79.899 Other long term (current) drug therapy; E03.9 Hypothyroidism, unspecified; G47.33 Obstructive sleep apnea (adult) (pediatric); E78.5 Hyperlipidemia, unspecified; I10 Essential (primary) hypertension; I70.0 Atherosclerosis of aorta; K21.9 Gastro-esophageal reflux disease without esophagitis; M85.80 Other specified disorders of bone density and structure, unspecified site; E66.9 Obesity, unspecified; K44.9 Diaphragmatic hernia without obstruction or gangrene; Z86.010 Personal history of colon polyps; Z87.891 Personal history of nicotine dependence; Z87.11 Personal history of peptic ulcer disease
CPT/HCPCS: 36430; 71010; 74000; 74250; 80048; 80053; 81001; 82330; 83735; 85007; 85014; 85018; 85025; 85027; 85610; 86850; 86900; 86901; 86920; 86927; 87086; 87641; 93005; 96361; 96374; C9113; J1940; J2405; J3430; J7030; J7050; P9016; P9017

== ENCOUNTER 2017-03-30 12:17 | Inpatient (IN) | payer MEDICARE ==
[~2017-03-30] VITALS: Ht 162.6 cm; Wt 105.0 kg
[~2017-03-30 12:17] MED LIST changes: -ASPI81CH CHEW; -CALC1TAB30 PO; +CALC1TAB87 PO; -NYST1000 SWISH-SWAL; -OMEP40CA2 PO; +PANT40TA3 PO; -PRED10 PO; -PYRI100T4 PO; -WARF-23 PO
[2017-03-30 12:19] VITALS: BP 128/63; PULSE 85; RESP 18; TEMP 97.7; O2SAT 90
--- NOTE | 2017-03-30 13:14 | RADRPT ---
EXAM DATE/TIME: 03/30/2017 13:02 [place] COMPARISON: CHEST SINGLE AP, February 26, 2017, 9:11. CHEST PA & LAT, January 21, 2017, 10:00. INDICATIONS : Cough, short of breath. MEDICAL HISTORY : Chronic obstructive pulmonary disease. arthritis SURGICAL HISTORY : None. ENCOUNTER: Initial ACUITY: 1 week PAIN SCORE: 0/10 LOCATION: Bilateral chest FINDINGS: PA and lateral views of the chest demonstrate the lungs to be symmetrically aerated without evidence of mass, infiltrate or effusion. There is stable chronic interstitial changes bilaterally. The cardi omediastinal contours are unremarkable. Osseous structures are intact. No significant changes compar ed to the prior study. CONCLUSION: No acute disease. No significant change has occurred. Arsenio Paul MD on March 30, 2017 at 13:12 Board Certified Radiologist. This report was verified electronically.
--- NOTE | 2017-03-30 13:42 | PD ---
HPI Chief Complaint: Cold / Flu Symptoms Time Seen by Provider: 13:22 Travel History International Travel<30 days: No Contact w/Intl Traveler<30days: No Traveled to known affect area: No History of Present Illness HPI 71-year-old female complains of coughing and shortness of breath, generalized malaise, fever . Patient has history of atrial fibrillation, COPD on home O2, sleep apnea. Patient was admitted to [facility] in February 2017. Patient states that she had persistent shortness of breath since discharge. Patient states the cough is persistent and productive. Patient started running fever to 11.2 last night. Patient denies any nausea vomiting and diarrhea. Patient states that she generalized malaise and tiredness. Patient states that she has been using Brio inhaler. Patient states that she has not been using albuterol inhaler or nebulizer because she was told not to use it with Brio. Patient denies any chest pain. Patient was seen at [facility] today and referred the ED for evaluation. PFSH Past Medical History Arthritis: Yes Blood Disorders: No Heart Rhythm Problems: Yes (ATRIAL FIB/FLUTTER ) Cancer: No Cardiovascular Problems: Yes (ATRIAL FIBULATION/FLUTTER ,HEART CATH/TIAS) High Cholesterol: Yes Chest Pain: No Congestive Heart Failure: No COPD: Yes Cerebrovascular Accident: Yes (TIA'S MULTIPLE IN PAST) Coronary Artery Disease: No Diabetes: No Endocrine: No Gastrointestinal Disorders: No Genitourinary: No Hypertension: Yes Immune Disorder: No Implanted Vascular Access Dvce: No Neurologic: Yes (RA) Psychiatric: No Reproductive: No Respiratory: No Migraines: No Seizures: No Sleep Apnea: Yes Thyroid Disease: Yes ?: Not Menopausal: Yes Past Surgical History Abdominal Surgery: No Cardiac Surgery: No Cholecystectomy: Yes (2002) Ear Surgery: No Endocrine Surgery: No Eye Surgery: No Genitourinary Surgery: No Gynecologic Surgery: No Oral Surgery: No Thoracic Surgery: No Other Surgery: Yes Social History Alcohol Use: No Tobacco Use: No Substance Use: No Allergies-Medications (Allergen,Severity, Reaction): Coded Allergies: No Known Allergies (Verified , 03/30/17) Reported Meds & Prescriptions Reported Meds & Active Scripts Active Pantoprazole (Pantoprazole Sodium) 40 Mg Tab 40 Mg PO DAILY [Portable Oxygen] Unit CONTINUOUS Ventolin Hfa 18 GM Inh (Albuterol Sulfate) 90 Mcg/Act Aer 2 Puff INH Q6HR Breo Ellipta Inh (Fluticasone/Vilanterol) 100-25 Mcg/Act Inh 1 Puff INH DAILY Oxygen tank (Oxygen) 1 Ea Tank 2 Liter NO.CANULA CONTINUOUS Oxygen Concentrator Portable Gaseous 2 L/min via Nasal Cannula Continuous For 99 months Pravastatin 40 Mg Tab 40 Mg PO DAILY Reported Calcium 600 with Vitamin D (Calcium Carbonate-Cholecalciferol) 600-400 mg-Unit Tab 1 Tab PO DAILY Proctosol Hc 2.5% (Hydrocortisone Rectal 2.5%) 2.5% Cream 1 Applic RECTAL BID PRN Lasix (Furosemide) 20 Mg Tab 20 Mg PO DAILY Lisinopril 10 Mg Tab 10 Mg PO DAILY Magnesium Oxide 250 Mg Tab Methotrexate Inj 50 Mg/2 Ml Inj Actemra Inj (Tocilizumab Inj) 162 Mg/0.9 Ml Inj Folic Acid 400 Mcg Tab 400 Mcg PO DAILY Levothyroxine (Levothyroxine Sodium) 50 Mcg Tab 50 Mcg PO DAILY Review of Systems General / Constitutional: No: Fever Eyes: No: Visual changes HENT: No: Headaches Cardiovascular: No: Chest Pain or Discomfort Respiratory: Positive: Cough, Shortness of Breath Gastrointestinal: No: Abdominal Pain Genitourinary: No: Dysuria Musculoskeletal: No: Pain Skin: No Rash Neurologic: No: Weakness Psychiatric: No: Depression Endocrine: No: Polydipsia Hematologic/Lymphatic: No: Easy Bruising Physical Exam Narrative GENERAL: Well-nourished, well-developed patient. SKIN: Focused skin assessment warm/dry. HEAD: Normocephalic. EYES: No scleral icterus. No injection or drainage. NECK: Supple, trachea midline. No JVD or lymphadenopathy. CARDIOVASCULAR: Regular rate and rhythm without murmurs, gallops, or rubs. RESPIRATORY: Breath sounds equal bilaterally. No accessory muscle use. Patient had few rhonchi at the bases. GASTROINTESTINAL: Abdomen soft, non-tender, nondistended. MUSCULOSKELETAL: No cyanosis, or edema. BACK: Nontender without obvious deformity. No CVA tenderness. Neurologic exam normal. Data Data Last Documented VS Vital Signs Date Time Temp Pulse Resp B/P (MAP) Pulse Ox O2 Delivery O2 Flow Rate FiO2 03/30/17 13:57 95 Nasal Cannula 2.00 03/30/17 13:19 25 03/30/17 12:19 97.7 85 128/63 (84) Orders Orders Complete Blood Count With Diff (03/30/17 12:26) Basic Metabolic Panel (Bmp) (03/30/17 12:26) Chest, Pa & Lat (03/30/17 12:26) Electrocardiogram (03/30/17 ) Albuterol-Ipratropium Neb (Duoneb Neb) (03/30/17 13:45) Labs Laboratory Tests Test 03/30/17 13:30 White Blood Count 7.3 TH/MM3 Red Blood Count 3.60 MIL/MM3 Hemoglobin 10.5 GM/DL Hematocrit 31.7 % Mean Corpuscular Volume 87.9 FL Mean Corpuscular Hemoglobin 29.3 PG Mean Corpuscular Hemoglobin Concent 33.3 % Red Cell Distribution Width 16.2 % Platelet Count 148 TH/MM3 Mean Platelet Volume 9.3 FL Neutrophils (%) (Auto) 69.1 % Lymphocytes (%) (Auto) 13.9 % Monocytes (%) (Auto) 16.2 % Eosinophils (%) (Auto) 0.4 % Basophils (%) (Auto) 0.4 % Neutrophils # (Auto) 5.1 TH/MM3 Lymphocytes # (Auto) 1.0 TH/MM3 Monocytes # (Auto) 1.2 TH/MM3 Eosinophils # (Auto) 0.0 TH/MM3 Basophils # (Auto) 0.0 TH/MM3 CBC Comment DIFF FINAL Differential Comment Blood Urea Nitrogen 30 MG/DL Creatinine 1.84 MG/DL Random Glucose 108 MG/DL Calcium Level 9.4 MG/DL Sodium Level 133 MEQ/L Potassium Level 4.7 MEQ/L Chloride Level 98 MEQ/L Carbon Dioxide Level 28.5 MEQ/L Anion Gap 7 MEQ/L Estimat Glomerular Filtration Rate 27 ML/MIN MDM Medical Decision Making Medical Screen Exam Complete: Yes Emergency Medical Condition: Yes Interpretation(s) Last Impressions Chest X-Ray 03/30/17 1226 Signed Impressions: Service Date/Time: Thursday, March 30, 2017 13:02 - CONCLUSION: No acute disease. No significant change has occurred. Arsenio Paul MD 1446 PM. CBC WBC 7.3. Hemoglobin 10.5 hematocrit 31.7. Platelet 148. Normal differential. Sodium 133. BUN 30. Creatinine 1.84. Differential Diagnosis Differential diagnosis including acute exacerbation COPD, bronchitis, pneumonia , PE, pneumothorax. Narrative Course 71-year-old female with increasing shortness of breath, productive cough, fever last night. History of COPD. Albuterol with Atrovent unit dose treatment 1. Diagnosis Primary Impression: COPD with acute exacerbation Additional Impressions: Acute kidney injury Hyponatremia Sunday Gannon MD Mar 30, 2017 13:42
[2017-03-30] MEDS ORDERED: RESP: ALBUTEROL 2.5 MG/IPRATROPIUM 0.5 MG NEB (SCH) INH ONE (13:45)
[2017-03-30 13:57] VITALS: O2SAT 95
[2017-03-30 13:57] LABS: AUTOMATED NEUTROPHIL # 5.1 TH/MM3 (1.8-7.7); BASOPHIL % 0.4 % (0.0-2.0); EOSINOPHIL % 0.4 % (0.0-4.0); HEMATOCRIT 31.7 % (35.0-46.0); HEMO FLAGS DIFF FINAL; LYMPH % 13.9 % (9.0-44.0); MEAN CELL VOLUME 87.9 FL (80.0-100.0); MEAN CORPUSCULAR HEMOGLOBIN 29.3 PG (27.0-34.0); MEAN CORPUSCULAR HGB CONC 33.3 % (32.0-36.0); MONO % 16.2 % (0.0-8.0); NEUT % 69.1 % (16.0-70.0); PLATELET COUNT 148 TH/MM3 (150-450); RED CELL DISTRIBUTION WIDTH 16.2 % (11.6-17.2); WHITE BLOOD COUNT 7.3 TH/MM3 (4.0-11.0)
[2017-03-30 14:16] LABS: BICARBONATE 28.5 MEQ/L (21.0-32.0); POTASSIUM 4.7 MEQ/L (3.5-5.1)
[2017-03-30] MEDS ORDERED: methylPREDNISolone SOD SUCC 125 MG/2 ML VIAL IV PUSH ONE (15:45)
[2017-03-30] MEDS ORDERED: AZITHROMYCIN INJ 500 MG in SODIUM CHLOR 0.9% 250 ML INJ 250 ML IV ONE (15:45)
[2017-03-30] MEDS ORDERED: CEFEPIME INJ 1,000 MG in SODIUM CHLORIDE 0.9% INJ 100 ML IV ONE (15:45)
[2017-03-30] MEDS ORDERED: HYDROCORTISONE/PRAMOXINE RECTAL FOAM 10 GM CAN RECTAL PRN (16:00)
--- NOTE | 2017-03-30 16:00 | HHI.HP ---
[facility] Service Family Medicine Primary Care Physician Catherine Corona , R3 MD Gael Admission Diagnosis Diagnoses: International Travel<30 Days: No Contact w/Intl Traveler<30days: No Known Affected Area: No History of Present Illness 71 year old female with a history of COPD, atrial fibrillation, hypothyroidism, grade 1 diastolic dysfunction presents with coughing, sputum production, increased wheezing and shortness of breath, stuffy/runny nose, poor appetite, and fatigue. She is not up to date on influenza vaccine. Symptoms started 5 days ago. She had a fever up to 101.2 orally. She is afebrile in the ED. She also has a sore throat. She has no chest pain, abdominal pain, vomiting, diarrhea, constipation, or calf tenderness. She has no recent travel and is not bedridden. She uses Breo for maintenance therapy, but is not using any albuterol for rescue treatment. She was under the impression she should not use albuterol while on Breo. She has a history of rheumatoid arthritis, currently on methotrexate and tocilizumab. She has atrial fibrillation. She had a recent hospitalization for acute GI bleed requiring blood transfusions and her Warfarin has been held since, with a plan to be cleared by GI before restarting Warfarin. She has hypothyroidism and is on levothyroxine. She has grade 1 diastolic dysfunction, with last ECHO in December 2015 with EF of 55-60%. She is not complaining of orthopnea or edema. Review of Systems Constitutional: COMPLAINS OF: Fatigue, Fever, Weight loss, Chills, Change in appetite, DENIES: Weight gain, Night Sweats Endocrine: DENIES: Polyuria, Polyphagia Eyes: DENIES: Blurred vision, Eye pain, Vision loss Ears, nose, mouth, throat: COMPLAINS OF: Throat pain, Running Nose, DENIES: Tinnitus, Ear Pain, Odynophagia Respiratory: COMPLAINS OF: Cough, Wheezing, Sputum production, Shortness of breath Cardiovascular: COMPLAINS OF: Dyspnea on Exertion, DENIES: Chest pain, Lower Extremity Edema, Orthopnea Gastrointestinal: COMPLAINS OF: Nausea, DENIES: Abdominal pain, Black stools, Bloody stools, Constipation, Diarrhea, Vomiting Genitourinary: DENIES: Urinary frequency Musculoskeletal: DENIES: Joint Swelling Hematologic/lymphatic: DENIES: Lymphadenopathy Immunologic/allergic: DENIES: Eczema Neurologic: COMPLAINS OF: Headache Psychiatric: DENIES: Anxiety, Mood changes, Depression Past Family Social History Past Medical History Past Medical History RA HTN HLD Atrial fibrillation: Coumadin on hold for recent GI bleed, until cleared by GI AKILAH (on CPAP) Hypothyroidism Aortic atherosclerosis Grade 1 diastolic dysfunction (echo December 2015 with EF 55-60%) GERD COPD Recent GI bleed requiring hospitalization with multiple transfusions Healthcare Maintenance Pap: 2011, negative for intraepithelial malignancy, positive HR-HPV; repeat done on 09/27 Mammo: November 2016, negative for mammographic evidence of malignancy Colonoscopy: 2011 showing hemorrhoids and diverticula, polpy, September 2016 --> told to return 5 years) Flu vaccine: March 2016 Pneumovax: at 67 she believes she received it Prevnar: 04/[address] [facility] [address] specialists [address] Hillman (rheum) Dr. Hurd (cards) Dr. Lorenz (GI) Dr. Michelle (pulm) Dr. Castanon (sleep) Past Surgical History Surgical History Cholecystectomy Carpal tunnel release, bilaterally Tonsillectomy EGD September 2016 Reported Medications Reported Meds & Active Scripts Active Pantoprazole (Pantoprazole Sodium) 40 Mg Tab 40 Mg PO DAILY [Portable Oxygen] Unit CONTINUOUS Ventolin Hfa 18 GM Inh (Albuterol Sulfate) 90 Mcg/Act Aer 2 Puff INH Q6HR Breo Ellipta Inh (Fluticasone/Vilanterol) 100-25 Mcg/Act Inh 1 Puff INH DAILY Oxygen tank (Oxygen) 1 Ea Tank 2 Liter NO.CANULA CONTINUOUS Oxygen Concentrator Portable Gaseous 2 L/min via Nasal Cannula Continuous For 99 months Pravastatin 40 Mg Tab 40 Mg PO DAILY Reported Calcium 600 with Vitamin D (Calcium Carbonate-Cholecalciferol) 600-400 mg-Unit Tab 1 Tab PO DAILY Proctosol Hc 2.5% (Hydrocortisone Rectal 2.5%) 2.5% Cream 1 Applic RECTAL BID PRN Lasix (Furosemide) 20 Mg Tab 20 Mg PO DAILY Lisinopril 10 Mg Tab 10 Mg PO DAILY Magnesium Oxide 250 Mg Tab Methotrexate Inj 50 Mg/2 Ml Inj Actemra Inj (Tocilizumab Inj) 162 Mg/0.9 Ml Inj Folic Acid 400 Mcg Tab 400 Mcg PO DAILY Levothyroxine (Levothyroxine Sodium) 50 Mcg Tab 50 Mcg PO DAILY Allergies: Coded Allergies: No Known Allergies (Verified , 03/30/17) Active Ordered Medications Inpatient Medications Albuterol/ Ipratropium (Duoneb Neb) 1 ampule ONCE ONCE INH Last administered on 03/30/17t 13:45; Start 03/30/17 at 13:45; Stop 03/30/17 at 13:46; Status DC Aspirin (Aspirin Chew) 81 mg DAILY CHEW ; Start 03/31/17 at 09:00; Status UNV Azithromycin 500 mg/Sodium Chloride 250 ml @ 250 mls/hr ONCE ONCE IV ; Start 03/30/17 at 15:45; Stop 03/30/17 at 16:44 Calcium/Vitamin D (Oscal-D 250-125) 250 mg DAILY PO ; Start 03/31/17 at 09:00; Status UNV Cefepime HCl 1000 mg/Sodium Chloride 100 ml @ 200 mls/hr ONCE ONCE IV ; Start 03/30/17 at 15:45; Stop 03/30/17 at 16:14; Status DC Fluticasone/ Vilanterol (Breo Ellipta 100-25 Inh) 1 puff DAILY INH ; Start at 09:00; Status UNV Folic Acid (Folate) 0.4 mg DAILY PO ; Start 03/31/17 at 09:00; Status UNV Furosemide (Lasix) 20 mg DAILY PO ; Start 03/31/17 at 09:00; Status UNV Levothyroxine Sodium (Synthroid) 50 mcg DAILY PO ; Start 03/31/17 at 09:00; Status UNV Lisinopril (Prinivil) 10 mg DAILY PO ; Start 03/31/17 at 09:00; Status UNV Methylprednisolone Sodium Succinate (SoluMEDROL INJ) 125 mg ONCE ONCE IV PUSH ; Start 03/30/17 at 15:45; Stop 03/30/17 at 15:46; Status DC Non-Formulary Medication 1 applic BID PRN RECTAL PAIN/INFLAMMATION; Start at 16:00; Status UNV Pantoprazole Sodium (Protonix) 40 mg DAILY PO ; Start 03/31/17 at 09:00; Status UNV Pravastatin Sodium (Pravachol) 40 mg DAILY PO ; Start 03/31/17 at 09:00; Status UNV Family History Family History Mother: , unclear cause of Father: , leukemia 2 Sisters: both passed 2/2 CVA; one sister had lung cancer other had a blood disorder (req to take Coumadin) Daughter: cerebral palsy Social History Social History Lives with son and daughter in law /divorce Retired - used to work at [employer] EtOH: denies Tobacco: 1PPDx 40 years, quit in 2001 Illicit drugs: denies Physical Exam Vital Signs Vital Signs Date Time Temp Pulse Resp B/P (MAP) Pulse Ox O2 Delivery O2 Flow Rate FiO2 03/30/17 13:57 95 Nasal Cannula 2.00 03/30/17 13:19 25 91 Nasal Cannula 3.00 03/30/17 12:19 97.7 85 18 128/63 (84) 90 Nasal Cannula 2.00 Physical Exam General: Sitting up in chair, significant coughing and sputum production, no respiratory distress, wearing nasal cannula Skin: No rashes or lesions HEENT: Normocephalic, no conjunctivitis, has nasal congestion, normal pharynx Neck: No lymphadenopathy, no thyromegaly CV: RRR, no murmurs, rubs, or gallops, normal cap refill, regular pulses Lungs: Significant rhonchi diffusely, wheezing, prolonged expiratory effort, on 2L nasal cannula, lots of coughing and sputum production Abdomen: Soft, nontender, non-distended, normal bowel sounds Ext: No edema Neuro: Awake, alert Psych: appropriate affect Laboratory Laboratory Tests Test 03/30/17 13:30 White Blood Count 7.3 Red Blood Count 3.60 Hemoglobin 10.5 Hematocrit 31.7 Mean Corpuscular Volume 87.9 Mean Corpuscular Hemoglobin 29.3 Mean Corpuscular Hemoglobin Concent 33.3 Red Cell Distribution Width 16.2 Platelet Count 148 Mean Platelet Volume 9.3 Neutrophils (%) (Auto) 69.1 Lymphocytes (%) (Auto) 13.9 Monocytes (%) (Auto) 16.2 Eosinophils (%) (Auto) 0.4 Basophils (%) (Auto) 0.4 Neutrophils # (Auto) 5.1 Lymphocytes # (Auto) 1.0 Monocytes # (Auto) 1.2 Eosinophils # (Auto) 0.0 Basophils # (Auto) 0.0 CBC Comment DIFF FINAL Differential Comment Blood Urea Nitrogen 30 Creatinine 1.84 Random Glucose 108 Calcium Level 9.4 Sodium Level 133 Potassium Level 4.7 Chloride Level 98 Carbon Dioxide Level 28.5 Anion Gap 7 Estimat Glomerular Filtration Rate 27 Result Diagram: 03/30/17 1330 03/30/17 1330 Imaging Last 72 hours Impressions Chest X-Ray 03/30/17 1226 Signed Impressions: Service Date/Time: Thursday, March 30, 2017 13:02 - CONCLUSION: No acute disease. No significant change has occurred. Arsenio Paul MD Septic Shock Reassessment Heart: Regular rate and rhythm Lungs: Course Skin: Warm Capillary Refill: <2 seconds Caprini VTE Risk Assessment Caprini VTE Risk Assessment: Mod/High Risk (score >= 2) VTE Pharm Contraindication: High risk for bleeding Caprini Risk Assessment Model Point Value = 1 Point Value = 2 Point Value = 3 Point Value = 5 Age 41-60 Minor surgery BMI > 25 kg/m2 Swollen legs Varicose veins or History of unexplained or recurrent spontaneous Oral contraceptives or hormone replacement Sepsis (< 1 month) Serious lung disease, including pneumonia (< 1 month) Abnormal pulmonary function Acute myocardial infarction Congestive heart failure (< 1 month) History of inflammatory bowel disease Medical patient at bed rest Age 61-74 Arthroscopic surgery Major open surgery (> 45 min) Laparoscopic surgery (> 45 min) Malignancy Confined to bed (> 72 hours) Immobilizing plaster cast Central venous access Age >= 75 History of VTE Family history of VTE Factor V Leiden Prothrombin [id number] Lupus anticoagulant Anticardiolipin antibodies Elevated serum homocysteine Heparin-induced thrombocytopenia Other congenital or acquired thrombophilia Stroke (< 1 month) Elective arthroplasty Hip, pelvis, or leg fracture Acute spinal cord injury (< 1 month) Prophylaxis Regimen Total Risk Factor Score Risk Level Prophylaxis Regimen 0-1 Low Early ambulation 2 Moderate Order ONE of the following: *Sequential Compression Device (SCD) *Heparin 5000 units SQ BID 3-4 Higher Order ONE of the following medications: *Heparin 5000 units SQ TID *Enoxaparin/Lovenox 40 mg SQ daily (WT < 150 kg, CrCl > 30 mL/min) *Enoxaparin/Lovenox 30 mg SQ daily (WT < 150 kg, CrCl > 10-29 mL/min) *Enoxaparin/Lovenox 30 mg SQ BID (WT < 150 kg, CrCl > 30 mL/min) AND/OR *Sequential Compression Device (SCD) 5 or more Highest Order ONE of the following medications: *Heparin 5000 units SQ TID (Preferred with Epidurals) *Enoxaparin/Lovenox 40 mg SQ daily (WT < 150 kg, CrCl > 30 mL/min) *Enoxaparin/Lovenox 30 mg SQ daily (WT < 150 kg, CrCl > 10-29 mL/min) *Enoxaparin/Lovenox 30 mg SQ BID (WT < 150 kg, CrCl > 30 mL/min) AND *Sequential Compression Device (SCD) Assessment and Plan Assessment and Plan 71 year old female presents with increasing shortness of breath, coughing, runny nose, sore throat, likely with COPD exacerbation. Code Status FULL CODE Discussed Condition With Will discuss with Dr. Figueroa Discussed with Dr. Gannon Problem List: (1) COPD with acute exacerbation ICD Codes: J44.1 - Chronic obstructive pulmonary disease with (acute) exacerbation Status: Acute Plan: Increased coughing with sputum production. Fevers at home. No leukocytosis. Age 71, no frequent hospitalizations for COPD. Requires 2L O2 at home continuously. Also has sleep apnea and uses CPAP machine at home intermittently. Chest x-ray shows no pneumonia. - Received Azithromycin and IV Cefepime once in ED. - Will continue with Levaquin 750 mg PO qday - Methylprednisone given in ED, continue with prednisone 50 mg daily - DuoNeb treatments q4hrs while awake, albuterol PRN for wheezing/shortness of breath. - Supplemental oxygen, keep O2 >92%, do not aim for higher O2 levels - Incentive spirometry - Check BNP, rule out CHF, has history of diastolic dysfunction grade 1 - Check influenza - Needs flu vaccine, maybe pneumonia vaccine - Tylenol for fevers and sore throat (2) Acute kidney injury ICD Codes: N17.9 - Acute kidney failure, unspecified Status: Acute Plan: Has elevated BUN/creatinine, 1.84. Baseline is about 1.16. BUN also elevated. - Give IVF at 100 mls/hr normal saline - Avoid nephrotoxic agents - Renally dose medications - If not resolving, consider further workup (3) Hypothyroidism ICD Codes: E03.9 - Hypothyroidism, unspecified Status: Chronic Plan: History of hypothyroidism, reports increasing fatigue. - Check TSH level - Continue levothyroxine 50 mcg daily (4) RA (rheumatoid arthritis) ICD Codes: M06.9 - Rheumatoid arthritis Status: Chronic Plan: - Holding methotrexate and tocilizumab - Continue folic acid (5) HLD (hyperlipidemia) ICD Codes: E78.5 - Hyperlipidemia, unspecified Status: Chronic Plan: - Continue pravastatin 40 mg daily (6) HTN (hypertension) ICD Codes: I10 - Essential (primary) hypertension Status: Chronic Plan: - Continue lisinopril 10 mg daily (7) Contraindication to deep vein thrombosis (DVT) prophylaxis ICD Codes: Z53.09 - Procedure and treatment not carried out because of other contraindication Status: Acute Plan: Recent history of GI bleed requiring multiple transfusions - Will hold pharmacologic therapy - Give bilateral SCD's - Needs clearance from GI before restarting anticoagulation for atrial fibrillation, follow up as outpatient (8) Nutrition, metabolism, and development symptoms ICD Codes: R63.8 - Other symptoms and signs concerning food and fluid intake Status: Acute Plan: NS at 100 mls/hr, has CATRACHO Sodium/chloride slightly low Heart healthy diet Mateo Gonsalves MD R3 Mar 30, 2017 15:59
[2017-03-30] MEDS ORDERED: ASPI81CH CHEW (16:05)
[2017-03-30] MEDS ORDERED: SODIUM CHLORIDE 0.9% FLUSH 10 ML FLUSH IV FLUSH PRN (16:30)
[2017-03-30] MEDS ORDERED: ONDANSETRON HCL 4 MG/2 ML VIAL IVP PRN (16:30)
[2017-03-30] MEDS ORDERED: LACTULOSE SYRUP 20 GM/30 ML CUP PO PRN (16:30)
[2017-03-30] MEDS ORDERED: NALOXONE HCL 0.4 MG/ML AMP IV PUSH PRN (16:30)
[2017-03-30] MEDS ORDERED: MAGNESIUM HYDROXIDE SUSP 30 ML CUP PO PRN (16:30)
[2017-03-30] MEDS ORDERED: ACETAMINOPHEN 325 MG TAB PO PRN (16:30)
[2017-03-30] MEDS ORDERED: SENNOSIDES 8.6 MG TAB PO PRN (16:30)
[2017-03-30] MEDS ORDERED: BISACODYL 10 MG SUPP RECTAL PRN (16:30)
[2017-03-30] MEDS: SODIUM CHLOR 0.9% 1000 ML INJ 1,000 ML IV SCH (19:29)
[2017-03-30] MEDS: SODIUM CHLORIDE 0.9% FLUSH 10 ML FLUSH IV FLUSH SCH (20:03)
[2017-03-30] MEDS: DOCUSATE SODIUM 50 MG/SENNA 8.6 MG TAB PO SCH (20:03)
[2017-03-30 20:30] VITALS: BP 107/59; PULSE 68; RESP 18; TEMP 98; O2SAT 91
[2017-03-30 21:21] VITALS: O2SAT 95
[2017-03-30] MEDS: RESP: ALBUTEROL 2.5 MG/IPRATROPIUM 0.5 MG NEB (SCH) NEB (21:21)
[2017-03-30 23:40] VITALS: O2SAT 94
[2017-03-30] MEDS: RESP: ALBUTEROL 2.5 MG/3 ML NEB (PRN) NEB (23:41)
[2017-03-31] VITALS (9 sets, daily range): BP systolic 106–142; BP diastolic 53–65; PULSE 64–88; RESP 18–24; TEMP 96.7–98.7; O2SAT 90–98
[2017-03-31] MEDS: RESP: ALBUTEROL 2.5 MG/3 ML NEB (PRN) NEB (04:39)
[2017-03-31 05:38] LABS: AUTOMATED NEUTROPHIL # 3.3 TH/MM3 (1.8-7.7); BASOPHIL % 0.1 % (0.0-2.0); HEMATOCRIT 29.6 % (35.0-46.0); HEMO FLAGS DIFF FINAL; LYMPH % 15.7 % (9.0-44.0); LYMPHOCYTE # 0.6 TH/MM3 (1.0-4.8); MEAN CELL VOLUME 88.6 FL (80.0-100.0); MEAN CORPUSCULAR HGB CONC 32.8 % (32.0-36.0); MONO % 2.8 % (0.0-8.0); NEUT % 81.4 % (16.0-70.0); PLATELET COUNT 142 TH/MM3 (150-450); RED BLOOD COUNT 3.33 MIL/MM3 (4.00-5.30); RED CELL DISTRIBUTION WIDTH 16.5 % (11.6-17.2)
[2017-03-31] MEDS: SODIUM CHLOR 0.9% 1000 ML INJ 1,000 ML IV SCH ×3 (05:49→21:27)
[2017-03-31 06:36] LABS: BICARBONATE 23.5 MEQ/L (21.0-32.0); POTASSIUM 4.4 MEQ/L (3.5-5.1)
[2017-03-31] MEDS: RESP: ALBUTEROL 2.5 MG/IPRATROPIUM 0.5 MG NEB (SCH) NEB ×4 (07:27→20:30)
[2017-03-31] MEDS: PRAVASTATIN SOD 40 MG TAB PO SCH (08:00)
[2017-03-31] MEDS: predniSONE 50 MG TAB PO SCH (08:00)
[2017-03-31] MEDS: LEVOTHYROXINE SODIUM 50 MCG TAB PO SCH (08:01)
[2017-03-31] MEDS: PANTOPRAZOLE SOD 40 MG DELAYED RELEASE TAB PO SCH (08:01)
[2017-03-31] MEDS: DOCUSATE SODIUM 50 MG/SENNA 8.6 MG TAB PO SCH ×2 (08:01→20:12)
[2017-03-31] MEDS: CALCIUM/VITAMIN D 250 MG/125 U TAB PO SCH (08:02)
[2017-03-31] MEDS: SODIUM CHLORIDE 0.9% FLUSH 10 ML FLUSH IV FLUSH SCH ×2 (08:02→20:30)
[2017-03-31] MEDS: FOLIC ACID 1 MG TAB PO SCH (08:02)
[2017-03-31] MEDS: ASPIRIN 81 MG CHEW TAB CHEW SCH (08:02)
[2017-03-31] MEDS ORDERED: LISINOPRIL 10 MG TAB PO SCH (09:00)
[2017-03-31] MEDS ORDERED: FUROSEMIDE 20 MG TAB PO SCH (09:00)
[2017-03-31] MEDS: FLUTICASONE 100 MCG/VILANTEROL 25 MCG INHALER INH SCH (11:23)
[2017-03-31 12:44] LABS: BLOOD, URINE NEG (NEG); CREATININE RANDOM URINE 56 MG/DL (27-300); GLUCOSE,URINE NEG (NEG); KETONE, URINE NEG (NEG); MUCUS URINE FEW /lpf (OCC); NITRITE,URINE NEG (NEG); URINE COLOR LIGHT-YELLOW (YELLW/STRAW)
[2017-03-31 12:54] LABS: MICRO ALBUMIN RANDOM URINE RAW LESS THAN 5.0 MG/L (0.0-30.0)
--- NOTE | 2017-03-31 13:21 | HHI.HP ---
[facility] Service Family Medicine Primary Care Physician Catherine Corona , R3 MD Gael Admission Diagnosis Diagnoses: (1) COPD with acute exacerbation Diagnosis: Principal (2) Acute kidney injury Diagnosis: Principal (3) Hypothyroidism Diagnosis: Principal (4) RA (rheumatoid arthritis) Diagnosis: Principal (5) HLD (hyperlipidemia) Diagnosis: Principal (6) HTN (hypertension) Diagnosis: Principal (7) Contraindication to deep vein thrombosis (DVT) prophylaxis Diagnosis: Principal (8) Nutrition, metabolism, and development symptoms Diagnosis: Principal International Travel<30 Days: No Contact w/Intl Traveler<30days: No Known Affected Area: No History of Present Illness Ms Ocasio is a 71 year old female with a history of COPD, atrial fibrillation, hypothyroidism, grade 1 diastolic dysfunction presented with coughing, sputum production, increased wheezing and shortness of breath, stuffy/runny nose, poor appetite with nausea, and fatigue. She is not up to date on influenza vaccine. Symptoms started 5 days prior to admission. She had a fever up to 101.2 orally. She is afebrile in the ED. She also has a sore throat. She has no chest pain, abdominal pain, vomiting, diarrhea, constipation, or calf tenderness. She has no recent travel and is not bedridden. She uses Breo for maintenance therapy, but is not using any albuterol for rescue treatment. She was under the impression she should not use albuterol while on Breo. She has a history of rheumatoid arthritis, currently on methotrexate and tocilizumab. She has atrial fibrillation. She had a recent hospitalization for acute GI bleed requiring blood transfusions and her Warfarin has been held since, with a plan to be cleared by GI before restarting Warfarin. She has an appointment on Sunday to get a camera she can swallow and does not want to miss that appointment. She has hypothyroidism and is on levothyroxine. She has grade 1 diastolic dysfunction, with last ECHO in December 2015 with EF of 55-60%. She is not complaining of orthopnea or edema. She feels some improvement since admission with her breathing but was found to have some increased creatinine and is being kept on iv fluids. She reported not drinking much water at home over the few days before admission. Review of Systems Other Constitutional: COMPLAINS OF: Fatigue, Fever, Weight loss, Chills, Change in appetite, DENIES: Weight gain, Night Sweats Endocrine: DENIES: Polyuria, Polyphagia Eyes: DENIES: Blurred vision, Eye pain, Vision loss Ears, nose, mouth, throat: COMPLAINS OF: Throat pain, Running Nose, DENIES: Tinnitus, Ear Pain, Odynophagia Respiratory: COMPLAINS OF: Cough, Wheezing, Sputum production, Shortness of breath Cardiovascular: COMPLAINS OF: Dyspnea on Exertion, DENIES: Chest pain, Lower Extremity Edema, Orthopnea Gastrointestinal: COMPLAINS OF: Nausea, DENIES: Abdominal pain, Black stools, Bloody stools, Constipation, Diarrhea, Vomiting Genitourinary: DENIES: Urinary frequency Musculoskeletal: DENIES: Joint Swelling Hematologic/lymphatic: DENIES: Lymphadenopathy Immunologic/allergic: DENIES: Eczema Neurologic: COMPLAINS OF: Headache Psychiatric: DENIES: Anxiety, Mood changes, Depression Past Family Social History Past Medical History Past Medical History RA HTN HLD Atrial fibrillation: Coumadin on hold for recent GI bleed, until cleared by GI AKILAH (on CPAP) Hypothyroidism Aortic atherosclerosis Grade 1 diastolic dysfunction (echo December 2015 with EF 55-60%) GERD COPD Recent GI bleed requiring hospitalization with multiple transfusions Healthcare Maintenance Pap: 2011, negative for intraepithelial malignancy, positive HR-HPV; repeat done on 09/27 Mammo: November 2016, negative for mammographic evidence of malignancy Colonoscopy: 2011 showing hemorrhoids and diverticula, polpy, September 2016 --> told to return 5 years) Flu vaccine: March 2016 Pneumovax: at 67 she believes she received it Prevnar: 04/2016 [address] Other specialists Dr[address] Hillman (rheum) Dr. Hurd (cards) Dr. Lorenz (GI) Dr. Michelle (pulm) Dr. Castanon (sleep) Past Surgical History Surgical History Cholecystectomy Carpal tunnel release, bilaterally Tonsillectomy EGD September 2016 Allergies: Coded Allergies: No Known Allergies (Verified , 03/30/17) Family History Family History Mother: , unclear cause of Father: , leukemia 2 Sisters: both passed 2/2 CVA; one sister had lung cancer other had a blood disorder (req to take Coumadin) Daughter: cerebral palsy Social History Social History Lives with son and daughter in law /divorce Retired - used to work at [employer] EtOH: denies Tobacco: 1PPDx 40 years, quit in 2001 Illicit drugs: denies Physical Exam Vital Signs Vital Signs Date Time Temp Pulse Resp B/P (MAP) Pulse Ox O2 Delivery O2 Flow Rate FiO2 03/31/17 11:53 97.7 83 24 115/53 (73) 94 03/31/17 08:34 97.3 81 24 142/63 (89) 96 03/31/17 07:29 96 Nasal Cannula 3.00 03/31/17 07:00 Nasal Cannula 3.00 03/31/17 04:39 98.7 88 18 137/60 (85) 90 03/31/17 00:00 98.0 64 18 106/64 (78) 94 03/30/17 23:40 94 Nasal Cannula 2.00 03/30/17 21:21 95 Nasal Cannula 2.00 03/30/17 20:30 98.0 68 18 107/59 (75) 91 03/30/17 20:10 Nasal Cannula 2.00 03/30/17 17:31 03/30/17 13:57 95 Nasal Cannula 2.00 03/30/17 13:19 25 91 Nasal Cannula 3.00 Physical Exam General: Sitting up in chair, some coughing and sputum production, no respiratory distress, wearing nasal cannula Skin: No rashes or lesions HEENT: Normocephalic, no conjunctivitis, has nasal congestion, normal pharynx Neck: No lymphadenopathy, no thyromegaly CV: RRR, systolic murmur, no rubs, or gallops, normal cap refill, regular pulses Lungs: Some wheezing, slight prolonged expiratory effort, on 2L nasal cannula, some coughing and sputum production Abdomen: Soft, nontender, non-distended, normal bowel sounds Ext: No edema Neuro: Awake, alert Psych: appropriate affect Laboratory Laboratory Tests Test 03/30/17 13:30 03/31/17 05:00 03/31/17 11:40 White Blood Count 7.3 4.0 Red Blood Count 3.60 3.33 Hemoglobin 10.5 9.7 Hematocrit 31.7 29.6 Mean Corpuscular Volume 87.9 88.6 Mean Corpuscular Hemoglobin 29.3 29.0 Mean Corpuscular Hemoglobin Concent 33.3 32.8 Red Cell Distribution Width 16.2 16.5 Platelet Count 148 142 Mean Platelet Volume 9.3 9.6 Neutrophils (%) (Auto) 69.1 81.4 Lymphocytes (%) (Auto) 13.9 15.7 Monocytes (%) (Auto) 16.2 2.8 Eosinophils (%) (Auto) 0.4 0.0 Basophils (%) (Auto) 0.4 0.1 Neutrophils # (Auto) 5.1 3.3 Lymphocytes # (Auto) 1.0 0.6 Monocytes # (Auto) 1.2 0.1 Eosinophils # (Auto) 0.0 0.0 Basophils # (Auto) 0.0 0.0 CBC Comment DIFF FINAL DIFF FINAL Differential Comment Blood Urea Nitrogen 30 39 Creatinine 1.84 2.12 Random Glucose 108 222 Calcium Level 9.4 8.6 Sodium Level 133 135 Potassium Level 4.7 4.4 Chloride Level 98 100 Carbon Dioxide Level 28.5 23.5 Anion Gap 7 12 Estimat Glomerular Filtration Rate 27 23 B-Type Natriuretic Peptide 85 Thyroid Stimulating Hormone 3rd Gen 0.388 Urine Color LIGHT-YELLOW Urine Turbidity CLEAR Urine pH 5.0 Urine Specific [place] 1.006 Urine Protein NEG Urine Glucose (UA) NEG Urine Ketones NEG Urine Occult Blood NEG Urine Nitrite NEG Urine Bilirubin NEG Urine Urobilinogen LESS THAN 2.0 Urine Leukocyte Esterase NEG Urine WBC LESS THAN 1 Urine Mucus FEW Urine Random Creatinine 56 Urine Microalbumin/Creatinine Ratio 9 Date/Time Source Procedure Growth Status 03/30/17 18:30 Sputum Expectorated Sputum Gram Stain - Final Resulted 03/30/17 18:30 Sputum Expectorated Sputum Sputum Culture Pending Resulted Result Diagram: 03/31/17 0500 03/31/17 0500 Imaging Last 72 hours Impressions Chest X-Ray 03/30/17 1226 Signed Impressions: Service Date/Time: Thursday, March 30, 2017 13:02 - CONCLUSION: No acute disease. No significant change has occurred. MD Adilene Kennedyi VTE Risk Assessment Caprini VTE Risk Assessment: Mod/High Risk (score >= 2) VTE Pharm Contraindication: High risk for bleeding Caprini Risk Assessment Model Point Value = 1 Point Value = 2 Point Value = 3 Point Value = 5 Age 41-60 Minor surgery BMI > 25 kg/m2 Swollen legs Varicose veins or History of unexplained or recurrent spontaneous Oral contraceptives or hormone replacement Sepsis (< 1 month) Serious lung disease, including pneumonia (< 1 month) Abnormal pulmonary function Acute myocardial infarction Congestive heart failure (< 1 month) History of inflammatory bowel disease Medical patient at bed rest Age 61-74 Arthroscopic surgery Major open surgery (> 45 min) Laparoscopic surgery (> 45 min) Malignancy Confined to bed (> 72 hours) Immobilizing plaster cast Central venous access Age >= 75 History of VTE Family history of VTE Factor V Leiden Prothrombin [id number] Lupus anticoagulant Anticardiolipin antibodies Elevated serum homocysteine Heparin-induced thrombocytopenia Other congenital or acquired thrombophilia Stroke (< 1 month) Elective arthroplasty Hip, pelvis, or leg fracture Acute spinal cord injury (< 1 month) Prophylaxis Regimen Total Risk Factor Score Risk Level Prophylaxis Regimen 0-1 Low Early ambulation 2 Moderate Order ONE of the following: *Sequential Compression Device (SCD) *Heparin 5000 units SQ BID 3-4 Higher Order ONE of the following medications: *Heparin 5000 units SQ TID *Enoxaparin/Lovenox 40 mg SQ daily (WT < 150 kg, CrCl > 30 mL/min) *Enoxaparin/Lovenox 30 mg SQ daily (WT < 150 kg, CrCl > 10-29 mL/min) *Enoxaparin/Lovenox 30 mg SQ BID (WT < 150 kg, CrCl > 30 mL/min) AND/OR *Sequential Compression Device (SCD) 5 or more Highest Order ONE of the following medications: *Heparin 5000 units SQ TID (Preferred with Epidurals) *Enoxaparin/Lovenox 40 mg SQ daily (WT < 150 kg, CrCl > 30 mL/min) *Enoxaparin/Lovenox 30 mg SQ daily (WT < 150 kg, CrCl > 10-29 mL/min) *Enoxaparin/Lovenox 30 mg SQ BID (WT < 150 kg, CrCl > 30 mL/min) AND *Sequential Compression Device (SCD) Assessment and Plan Assessment and Plan 71 year old female presents with increasing shortness of breath, coughing, runny nose, sore throat, likely with COPD exacerbation. Problem List: (1) COPD with acute exacerbation ICD Codes: J44.1 - Chronic obstructive pulmonary disease with (acute) exacerbation Status: Acute Plan: Increased coughing with sputum production. Fevers at home. No leukocytosis. Age 71, no frequent hospitalizations for COPD. Requires 2L O2 at home continuously. Also has sleep apnea and uses CPAP machine at home intermittently. Chest x-ray shows no pneumonia. She is immunocompromised with her RA and treatment so will watch closely for signs of worse infection. She had fevers at home but none here. - Received Azithromycin and IV Cefepime once in ED. - considered Levaquin 750 mg PO qday but she is still on prior abx as levaquin must be renally dosed - Methylprednisone given in ED, continue with prednisone 50 mg daily. this has likely contributed to her improvement - DuoNeb treatments q4hrs while awake, albuterol PRN for wheezing/shortness of breath. - Supplemental oxygen, keep O2 >92%, do not aim for higher O2 levels - Incentive spirometry - Check BNP, rule out CHF, has history of diastolic dysfunction grade 1 - Checked influenza - Needs flu vaccine, maybe pneumonia vaccine - Tylenol for fevers and sore throat (2) Acute kidney injury ICD Codes: N17.9 - Acute kidney failure, unspecified Status: Acute Plan: Has elevated BUN/creatinine, 1.84. Baseline is about 1.16. BUN also elevated. - Give IVF at 140 mls/hr normal saline - Avoid nephrotoxic agents - Renally dose medications - If not resolving, consider further workup for now will hold SAVITA and lasix as she may be dehydrated. (3) Hypothyroidism ICD Codes: E03.9 - Hypothyroidism, unspecified Status: Chronic Plan: History of hypothyroidism, reports increasing fatigue. - Check TSH level - Continue levothyroxine 50 mcg daily (4) RA (rheumatoid arthritis) ICD Codes: M06.9 - Rheumatoid arthritis Status: Chronic Plan: - Holding methotrexate and tocilizumab - Continue folic acid (5) HLD (hyperlipidemia) ICD Codes: E78.5 - Hyperlipidemia, unspecified Status: Chronic Plan: - Continue pravastatin 40 mg daily (6) HTN (hypertension) ICD Codes: I10 - Essential (primary) hypertension Status: Chronic Plan: - Continue lisinopril 10 mg daily, will hold with increased creatinine (7) Contraindication to deep vein thrombosis (DVT) prophylaxis ICD Codes: Z53.09 - Procedure and treatment not carried out because of other contraindication Status: Acute Plan: Recent history of GI bleed requiring multiple transfusions - Will hold pharmacologic therapy - Give bilateral SCD's - Needs clearance from GI before restarting anticoagulation for atrial fibrillation, follow up as outpatient. will have appointment Sunday with GI in their office (8) Nutrition, metabolism, and development symptoms ICD Codes: R63.8 - Other symptoms and signs concerning food and fluid intake Status: Acute Plan: NS at 140 mls/hr, has CATRACHO Sodium/chloride slightly low Heart healthy diet Problem Qualifiers (1) Hypothyroidism: Qualified Codes: E03.9 - Hypothyroidism, unspecified (2) RA (rheumatoid arthritis): Qualified Codes: M06.9 - Rheumatoid arthritis, unspecified (3) HLD (hyperlipidemia): Qualified Codes: E78.00 - Pure hypercholesterolemia, unspecified (4) HTN (hypertension): Qualified Codes: I10 - Essential (primary) hypertension Karol Figueroa MD Mar 31, 2017 13:20
--- NOTE | 2017-03-31 17:06 | RADRPT ---
EXAM DATE/TIME: 03/31/2017 16:35 [place] COMPARISON: No previous studies available for comparison. INDICATIONS : Increased BUN/Creatnine. MEDICAL HISTORY : Rheumatoid arthritis. Hypercholesterolemia. Chronic obstructive pulmonary disease. Glasses. Thyroid d isease. Dentures. Atrial fibrillation. Hypertension. Stroke. Sleep apnea. Dyspnea. Arthritis. Blood t ransfusions. SURGICAL HISTORY : Cholecystectomy. Bilateral hand surgery. ENCOUNTER: Initial ACUITY: 1 day PAIN SCORE: 0/10 LOCATION: Bilateral flank MEASUREMENTS: RIGHT KIDNEY: 9.3 x 3.7 x 5.0 cm LEFT KIDNEY: 11.7 x 3.9 x 6.1 cm FINDINGS: Kidneys are mildly atrophic. No hydronephrosis. Probable small vascular calcifications bilaterally. N o perinephric fluid. CONCLUSION: 1. Mild cortical atrophy. No acute findings. Davi Greer MD on March 31, 2017 at 16:57 Board Certified Radiologist. This report was verified electronically.
[2017-04-01 03:20] VITALS: BP 117/56; PULSE 71; RESP 21; TEMP 96.4; O2SAT 93
[2017-04-01] MEDS: SODIUM CHLOR 0.9% 1000 ML INJ 1,000 ML IV SCH ×2 (04:20→08:46)
[2017-04-01 06:31] LABS: HEMATOCRIT 26.8 % (35.0-46.0); MEAN CELL VOLUME 88.5 FL (80.0-100.0); MEAN CORPUSCULAR HEMOGLOBIN 29.2 PG (27.0-34.0); MEAN CORPUSCULAR HGB CONC 32.9 % (32.0-36.0); PLATELET COUNT 143 TH/MM3 (150-450); RED BLOOD COUNT 3.02 MIL/MM3 (4.00-5.30); RED CELL DISTRIBUTION WIDTH 16.4 % (11.6-17.2); REVIEW FLAG FINAL; WHITE BLOOD COUNT 11.8 TH/MM3 (4.0-11.0)
[2017-04-01 06:53] LABS: BICARBONATE 25.2 MEQ/L (21.0-32.0); POTASSIUM 4.6 MEQ/L (3.5-5.1)
[2017-04-01 08:00] VITALS: BP 114/56; PULSE 79; RESP 18; TEMP 96.7; O2SAT 92
[2017-04-01] MEDS: ASPIRIN 81 MG CHEW TAB CHEW SCH (08:43)
[2017-04-01] MEDS: PANTOPRAZOLE SOD 40 MG DELAYED RELEASE TAB PO SCH (08:43)
[2017-04-01] MEDS: predniSONE 50 MG TAB PO SCH (08:43)
[2017-04-01] MEDS: PRAVASTATIN SOD 40 MG TAB PO SCH (08:43)
[2017-04-01] MEDS: DOCUSATE SODIUM 50 MG/SENNA 8.6 MG TAB PO SCH (08:43)
[2017-04-01] MEDS: CALCIUM/VITAMIN D 250 MG/125 U TAB PO SCH (08:43)
[2017-04-01] MEDS: LEVOTHYROXINE SODIUM 50 MCG TAB PO SCH (08:43)
[2017-04-01] MEDS: FOLIC ACID 1 MG TAB PO SCH (08:43)
[2017-04-01] MEDS: SODIUM CHLORIDE 0.9% FLUSH 10 ML FLUSH IV FLUSH SCH (08:44)
[2017-04-01] MEDS ORDERED: LEVOFLOXACIN 750 MG TAB PO SCH (09:00)
[2017-04-01] MEDS: FLUTICASONE 100 MCG/VILANTEROL 25 MCG INHALER INH SCH (09:00)
[2017-04-01] MEDS: RESP: ALBUTEROL 2.5 MG/IPRATROPIUM 0.5 MG NEB (SCH) NEB ×2 (09:12→12:13)
[2017-04-01 09:14] VITALS: O2SAT 93
--- NOTE | 2017-04-01 10:33 | HHI.DCPOC ---
Discharge Care Plan Diagnosis: (1) COPD with acute exacerbation (2) Acute kidney injury (3) Fatigue Goals to Promote Your Health * To prevent worsening of your condition and complications * To maintain your health at the optimal level Directions to Meet Your Goals Take your medications as prescribed Follow your dietary instruction Follow activity as directed Keep your appointments as scheduled Take your immunizations and boosters as scheduled If your symptoms worsen call your PCP, if no PCP go to Urgent Care Center or Emergency Room Smoking is Dangerous to Your Health. Avoid second hand smoke Call the 24-hour hour crisis hotline for domestic abuse at Mateo Gonsalves MD R3 Apr 01, 2017 10:33
[2017-04-01] MEDS ORDERED: LEVA750T9 PO (10:36)
[2017-04-01] MEDS ORDERED: PRED50 PO (10:36)
--- NOTE | 2017-04-01 11:27 | HHI.FPPN ---
Subjective Remarks No acute events overnight. Reports feeling stronger and that her breathing is improving. Had one coughing fit overnight. Lungs still somewhat wheezy with rhonchi but improved since admission. Getting up and walking around without significant dyspnea. No chest pain, abdominal pain, nausea, vomiting, or diarrhea. Reports frequent small volume urination that is chronic for her. No dysuria, no blood in urine reported. No calf tenderness. Reports she feels strong enough to go home. Almost back to her baseline per her report. (Mateo Gonsalves MD R3) Objective Vitals Vital Signs Date Time Temp Pulse Resp B/P (MAP) Pulse Ox O2 Delivery O2 Flow Rate FiO2 04/01/17 09:14 93 Nasal Cannula 2.00 04/01/17 08:00 96.7 79 18 114/56 (75) 92 04/01/17 03:20 96.4 71 21 117/56 (76) 93 04/01/17 01:49 Nasal Cannula 2.00 03/31/17 23:00 96.7 77 20 115/54 (74) 93 03/31/17 20:30 98 Nasal Cannula 2.00 03/31/17 18:28 97.5 81 20 137/65 (89) 93 03/31/17 15:44 97.7 82 24 118/55 (76) 93 03/31/17 11:53 97.7 83 24 115/53 (73) 94 I/O 03/31/17 03/31/17 03/31/17 04/01/17 04/01/17 04/01/17 07:00 15:00 23:00 07:00 15:00 23:00 Intake Total 3490 ml 1240 ml Output Total 600 ml Balance 2890 ml 1240 ml Intake Oral 990 ml 240 ml IV Total 2500 ml 1000 ml Output Urine Total 600 ml # Voids 3 5 # Bowel Movements 0 0 (Mateo Gonsalves MD R3) Result Diagram: 04/01/17 0500 04/01/17 0500 Imaging Last 72 hours Impressions Renal Ultrasound 03/31/17 0000 Signed Impressions: Service Date/Time: Friday, March 31, 2017 16:35 - CONCLUSION: 1. Mild cortical atrophy. No acute findings. Davi Greer MD Chest X-Ray 03/30/17 1226 Signed Impressions: Service Date/Time: Thursday, March 30, 2017 13:02 - CONCLUSION: No acute disease. No significant change has occurred. Arsenio Paul MD Objective Remarks General: Sitting up in bed, nasal cannula in place, no respiratory distress, no coughing noted Skin: No rashes or lesions HEENT: Normocephalic, no conjunctivitis, nasal congestion improved, pharynx normal Neck: No lymphadenopathy, no thyromegaly CV: RRR, systolic murmur, no rubs, or gallops, normal cap refill, regular pulses Lungs: Wheezing throughout but improved, rhonchi in lung bases, nasal cannula in place, no respiratory distress, no coughing today Abdomen: Soft, nontender, non-distended, normal bowel sounds Ext: No edema Neuro: Awake, alert Psych: appropriate affect (Mateo Gonsalves MD R3) A/P Assessment and Plan 71 year old female presents with increasing shortness of breath, coughing, runny nose, sore throat, likely with COPD exacerbation. Discharge Planning Plan for discharge today. Will continue with prednisone for a total 7 day course and will continue with Levaquin. Continue albuterol as needed at home, educated that she can use albuterol while on Breo as she did not understand this. Will continue O2 therapy at home as before. Needs close follow up with her PCP. May benefit from pulmonary rehab, and possibly a voice network engineer if she continues to have COPD exacerbations. (Mateo Gonsalves MD R3) Attending Attestation Patient seen and examined. Case reviewed and discussed with the resident team. Agree with plan of care as discussed with me and documented in the resident note. discussed with her that her RA could be worsening off her meds. She has not taken her usual injections for a month. I explained that her interstitial lung disease could be related to her RA as well as her renal fxn. She improved greatly with steroids. She plans on seeing her Net Developer Architect on Sunday and will get back on her normal regimen. (Karol Figueroa MD) Problem List: (1) COPD with acute exacerbation ICD Codes: J44.1 - Chronic obstructive pulmonary disease with (acute) exacerbation Status: Acute Plan: Increased coughing with sputum production. Fevers at home. No leukocytosis. Age 71, no frequent hospitalizations for COPD. Requires 2L O2 at home continuously. Also has sleep apnea and uses CPAP machine at home intermittently. Chest x-ray shows no pneumonia. She is immunocompromised with her RA and treatment so will watch closely for signs of worse infection. She had fevers at home but none here. Now currently improved and almost back to baseline. - Received Azithromycin and IV Cefepime once in ED. - Will give Levaquin to be continued at home, GN rods in sputum. - Methylprednisone given in ED, continue with prednisone 50 mg daily, continue for 7 days course. - DuoNeb treatments q4hrs while awake, albuterol PRN for wheezing/shortness of breath. - Supplemental oxygen, keep O2 >92%, do not aim for higher O2 levels - Incentive spirometry - Needs flu vaccine, maybe pneumonia vaccine, follow up with PCP when not acutely sick. - Tylenol for fevers and sore throat, avoid NSAIDs given renal insufficient - May benefit from pulmonary rehab. (2) Acute kidney injury ICD Codes: N17.9 - Acute kidney failure, unspecified Status: Acute Plan: Elevated BUN/Creatinine, improved with fluids. Nearly back to her baseline now. - Give IVF at 140 mls/hr normal saline, encourage good PO intake at discharge. - Avoid nephrotoxic agents, especially NSAIDs - Renally dose medications (3) Hypothyroidism ICD Codes: E03.9 - Hypothyroidism, unspecified Status: Chronic Plan: History of hypothyroidism, reports increasing fatigue. - Checked TSH level, normal range - Continue levothyroxine 50 mcg daily (4) RA (rheumatoid arthritis) ICD Codes: M06.9 - Rheumatoid arthritis Status: Chronic Plan: - Holding methotrexate and tocilizumab, continue at discharge - Continue folic acid - Lung disease may be partly attributable to her RA, follow up with drawing tender. (5) HLD (hyperlipidemia) ICD Codes: E78.5 - Hyperlipidemia, unspecified Status: Chronic Plan: - Continue pravastatin 40 mg daily (6) HTN (hypertension) ICD Codes: I10 - Essential (primary) hypertension Status: Chronic Plan: - Continue lisinopril 10 mg daily, will hold with increased creatinine (7) Contraindication to deep vein thrombosis (DVT) prophylaxis ICD Codes: Z53.09 - Procedure and treatment not carried out because of other contraindication Status: Acute Plan: Recent history of GI bleed requiring multiple transfusions - Will hold pharmacologic therapy - Give bilateral SCD's - Needs clearance from GI before restarting anticoagulation for atrial fibrillation, follow up as outpatient. Will have appointment Sunday with GI in their office and get capsule endoscopy. (8) Nutrition, metabolism, and development symptoms ICD Codes: R63.8 - Other symptoms and signs concerning food and fluid intake Status: Acute Plan: NS at 140 mls/hr, discontinue at discharge Heart healthy diet (Mateo Gonsalves MD R3) Problem Qualifiers (1) Hypothyroidism: Qualified Codes: E03.9 - Hypothyroidism, unspecified (2) RA (rheumatoid arthritis): Qualified Codes: M06.9 - Rheumatoid arthritis, unspecified (3) HLD (hyperlipidemia): Qualified Codes: E78.00 - Pure hypercholesterolemia, unspecified (4) HTN (hypertension): Qualified Codes: I10 - Essential (primary) hypertension Mateo Gonsalves MD R3 Apr 01, 2017 11:27 Karol Figueroa MD Apr 01, 2017 14:28
--- NOTE | 2017-04-01 11:59 | HHI.DS ---
Discharge Summary Admission Date Mar 31, 2017 at 09:12 Discharge Date: Apr 01, 2017 Admitting Diagnosis (1) COPD with acute exacerbation Diagnosis: Principal Plan: Increased coughing with sputum production. Fevers at home. No leukocytosis. Age 71, no frequent hospitalizations for COPD. Requires 2L O2 at home continuously. Also has sleep apnea and uses CPAP machine at home intermittently. Chest x-ray shows no pneumonia. She is immunocompromised with her RA and treatment so will watch closely for signs of worse infection. She had fevers at home but none here. Now currently improved and almost back to baseline. - Received Azithromycin and IV Cefepime once in ED. - Will give Levaquin to be continued at home, GN rods in sputum. - Methylprednisone given in ED, continue with prednisone 50 mg daily, continue for 7 days course. - DuoNeb treatments q4hrs while awake, albuterol PRN for wheezing/shortness of breath. - Supplemental oxygen, keep O2 >92%, do not aim for higher O2 levels - Incentive spirometry - Needs flu vaccine, maybe pneumonia vaccine, follow up with PCP when not acutely sick. - Tylenol for fevers and sore throat, avoid NSAIDs given renal insufficient - May benefit from pulmonary rehab. ICD Codes: J44.1 - Chronic obstructive pulmonary disease with (acute) exacerbation Status: Acute (2) Acute kidney injury Diagnosis: Principal Plan: Elevated BUN/Creatinine, improved with fluids. Nearly back to her baseline now. - Give IVF at 140 mls/hr normal saline, encourage good PO intake at discharge. - Avoid nephrotoxic agents, especially NSAIDs - Renally dose medications ICD Codes: N17.9 - Acute kidney failure, unspecified Status: Acute (3) Hypothyroidism Diagnosis: Secondary Plan: History of hypothyroidism, reports increasing fatigue. - Checked TSH level, normal range - Continue levothyroxine 50 mcg daily ICD Codes: E03.9 - Hypothyroidism, unspecified Status: Chronic (4) RA (rheumatoid arthritis) Plan: - Holding methotrexate and tocilizumab, continue at discharge - Continue folic acid - Lung disease may be partly attributable to her RA, follow up with computer systems design analyst. ICD Codes: M06.9 - Rheumatoid arthritis Status: Chronic (5) HLD (hyperlipidemia) Diagnosis: Secondary Plan: - Continue pravastatin 40 mg daily ICD Codes: E78.5 - Hyperlipidemia, unspecified Status: Chronic (6) HTN (hypertension) Diagnosis: Secondary Plan: - Continue lisinopril 10 mg daily, will hold with increased creatinine ICD Codes: I10 - Essential (primary) hypertension Status: Chronic (7) Contraindication to deep vein thrombosis (DVT) prophylaxis Diagnosis: Secondary Plan: Recent history of GI bleed requiring multiple transfusions - Will hold pharmacologic therapy - Give bilateral SCD's - Needs clearance from GI before restarting anticoagulation for atrial fibrillation, follow up as outpatient. Will have appointment Sunday with GI in their office and get capsule endoscopy. ICD Codes: Z53.09 - Procedure and treatment not carried out because of other contraindication Status: Acute (8) Nutrition, metabolism, and development symptoms Diagnosis: Secondary Plan: NS at 140 mls/hr, discontinue at discharge Heart healthy diet ICD Codes: R63.8 - Other symptoms and signs concerning food and fluid intake Status: Acute Brief History Ms Ocasio is a 71 year old female with a history of COPD, atrial fibrillation, hypothyroidism, grade 1 diastolic dysfunction presented with coughing, sputum production, increased wheezing and shortness of breath, stuffy/runny nose, poor appetite with nausea, and fatigue. She is not up to date on influenza vaccine. Symptoms started 5 days prior to admission. She had a fever up to 101.2 orally. She is afebrile in the ED. She also has a sore throat. She has no chest pain, abdominal pain, vomiting, diarrhea, constipation, or calf tenderness. She has no recent travel and is not bedridden. She uses Breo for maintenance therapy, but is not using any albuterol for rescue treatment. She was under the impression she should not use albuterol while on Breo. She has a history of rheumatoid arthritis, currently on methotrexate and tocilizumab. She has atrial fibrillation. She had a recent hospitalization for acute GI bleed requiring blood transfusions and her Warfarin has been held since, with a plan to be cleared by GI before restarting Warfarin. She has an appointment on Sunday to get a camera she can swallow and does not want to miss that appointment. She has hypothyroidism and is on levothyroxine. She has grade 1 diastolic dysfunction, with last ECHO in December 2015 with EF of 55-60%. She is not complaining of orthopnea or edema. She feels some improvement since admission with her breathing but was found to have some increased creatinine and is being kept on iv fluids. She reported not drinking much water at home over the few days before admission. CBC/BMP: 04/01/17 0500 04/01/17 0500 Significant Findings Laboratory Tests Test 03/30/17 13:30 03/31/17 05:00 03/31/17 07:34 03/31/17 11:40 Red Blood Count 3.60 MIL/MM3 (4.00-5.30) 3.33 MIL/MM3 (4.00-5.30) Hemoglobin 10.5 GM/DL (11.6-15.3) 9.7 GM/DL (11.6-15.3) Hematocrit 31.7 % (35.0-46.0) 29.6 % (35.0-46.0) Platelet Count 148 TH/MM3 (150-450) 142 TH/MM3 (150-450) Monocytes (%) (Auto) 16.2 % (0.0-8.0) Monocytes # (Auto) 1.2 TH/MM3 (0-0.9) Blood Urea Nitrogen 30 MG/DL (7-18) 39 MG/DL (7-18) Creatinine 1.84 MG/DL (0.50-1.00) 2.12 MG/DL (0.50-1.00) Random Glucose 108 MG/DL (74-106) 222 MG/DL (74-106) Sodium Level 133 MEQ/L (136-145) 135 MEQ/L (136-145) Estimat Glomerular Filtration Rate 27 ML/MIN (>89) 23 ML/MIN (>89) Neutrophils (%) (Auto) 81.4 % (16.0-70.0) Lymphocytes # (Auto) 0.6 TH/MM3 (1.0-4.8) Urine Mucus FEW /lpf (OCC) Test 04/01/17 05:00 White Blood Count 11.8 TH/MM3 (4.0-11.0) Red Blood Count 3.02 MIL/MM3 (4.00-5.30) Hemoglobin 8.8 GM/DL (11.6-15.3) Hematocrit 26.8 % (35.0-46.0) Platelet Count 143 TH/MM3 (150-450) Blood Urea Nitrogen 37 MG/DL (7-18) Creatinine 1.31 MG/DL (0.50-1.00) Random Glucose 109 MG/DL (74-106) Estimat Glomerular Filtration Rate 40 ML/MIN (>89) PE at Discharge General: Sitting up in bed, nasal cannula in place, no respiratory distress, no coughing noted Skin: No rashes or lesions HEENT: Normocephalic, no conjunctivitis, nasal congestion improved, pharynx normal Neck: No lymphadenopathy, no thyromegaly CV: RRR, systolic murmur, no rubs, or gallops, normal cap refill, regular pulses Lungs: Wheezing throughout but improved, rhonchi in lung bases, nasal cannula in place, no respiratory distress, no coughing today Abdomen: Soft, nontender, non-distended, normal bowel sounds Ext: No edema Neuro: Awake, alert Psych: appropriate affect Hospital Course 71 year old female with a history of COPD, atrial fibrillation, hypothyroidism, grade 1 diastolic dysfunction presents with coughing, sputum production, increased wheezing and shortness of breath, stuffy/runny nose, poor appetite, fevers, and fatigue. She received one dose of Azithromycin and Cefepime in the ED. She continued with Levaquin PO and will need to complete this antibiotic outpatient. She received methylprednisolone on day one and subsequently received prednisone 50 mg daily, and will need to continue this for a 7 day course. She was given DuoNeb treatments every 4 hours and albuterol PRN. She had significant improvement with these treatments. Her creatinine was 1.8 on admission with a baseline of about 1.3, which worsened to 2.2 on day two. Her IVF were increased, and a workup including urine eosinophils, ultrasound, urinalysis, microalbumin was essentially normal. Her kidney function improved significantly by day 3 and are close to her baseline. Her thyroid was checked due to complaints of fatigue, but was normal. She is on levothyroxine 50 mcg daily and should continue this dose. She needs a flu shot and pneumonia vaccine , which she should get from her PCP after she is over this acute illness. She should continue her O2 therapy at home, 2L by nasal cannula. It is recommended that pulmonary rehab be considered for her. She is a non-smoker but did smoke in the past. She also has a history of rheumatoid arthritis which could be contributing to her lung symptoms. She should follow up with her computer systems design analyst and continue with her methotrexate and tocilizumab. She was under the impression she cannot use albuterol while on Breo, educated her that she is able to do this and should use albuterol as needed for acute SOB and wheezing. Pt Condition on Discharge: Fair Discharge Disposition: Discharge Home Discharge Instructions DIET: Follow Instructions for: Heart Healthy Diet Speech Therapy-Diet Recommends: Regular Activities you can perform: Regular-No Restrictions Follow up Referrals: PCP Follow-up - 1 Week New Medications: Levofloxacin (Levaquin) 750 Mg Tablet 750 MG PO DAILY, #4 TAB Prednisone (Prednisone) 50 Mg Tab 50 MG PO DAILY, #4 TAB Continued Medications: Albuterol 18 GM Inh (Ventolin Hfa 18 GM Inh) 90 Mcg/Act Aer 2 PUFF INH Q6HR, #1 INHALER 1 Refill Aspirin (Aspirin) 81 Mg Chew 81 MG CHEW DAILY, TAB 0 Refills Calcium Carbonate-Cholecalciferol (Calcium 600 with Vitamin D) 600-400 mg-Unit Tab 1 TAB PO DAILY for Calcium Supplement, TAB 0 Refills Fluticasone-Vilanterol Inh (Breo Ellipta Inh) 100-25 Mcg/Act Inh 1 PUFF INH DAILY, #1 INHALER 1 Refill Folic Acid (Folic Acid) 400 Mcg Tab 400 MCG PO DAILY for Nutritional Supplement, TAB 0 Refills Furosemide (Lasix) 20 Mg Tab 20 MG PO DAILY, #30 TAB 0 Refills Hydrocortisone Rectal 2.5% (Proctosol Hc 2.5%) 2.5% Cream 1 APPLIC RECTAL BID PRN for PAIN/INFLAMMATION, #1 TUBE 0 Refills Levothyroxine (Levothyroxine) 50 Mcg Tab 50 MCG PO DAILY for Thyroid, #30 TAB 0 Refills Lisinopril (Lisinopril) 10 Mg Tab 10 MG PO DAILY, #30 TAB 0 Refills Magnesium Oxide (Magnesium Oxide) 250 Mg Tab Methotrexate Inj (Methotrexate Inj) 50 Mg/2 Ml Inj Oxygen tank (Oxygen tank) 1 Ea Tank 2 LITER NO.CANULA CONTINUOUS for HYPOXEMIA PREVENTION, #1 CYLINDER 99 Refills Oxygen Concentrator Portable Gaseous 2 L/min via Nasal Cannula Continuous For 99 months Pantoprazole (Pantoprazole) 40 Mg Tab 40 MG PO DAILY, #30 TAB Pravastatin (Pravastatin) 40 Mg Tab 40 MG PO DAILY for Cholesterol Management, #30 TAB 11 Refills Tocilizumab Inj (Actemra Inj) 162 Mg/0.9 Ml Inj [Portable Oxygen] () UNIT CONTINUOUS, #1 Mateo Gnosalves MD R3 Apr 01, 2017 11:59
== END 2017-04-01 14:08 | disposition home or self-care (01) | DRG 191 ==
LOC: NEPC 12:17 → NEDA 15:54 → NEPGCP 17:17 → OBSVTOIN 03-31 09:12 → N06B 03-31 18:24
PROVIDERS: ADMIT Family Medicine; ATTEND Family Medicine
PROC: 3E0F7GC Introduction of Other Therapeutic Substance into Respiratory Tract, Via Natural or Artificial Opening (ICD-10-PCS; principal; 2017-03-30)
DX: J44.1 Chronic obstructive pulmonary disease with (acute) exacerbation (principal); N17.9 Acute kidney failure, unspecified; Z99.81 Dependence on supplemental oxygen; E87.1 Hypo-osmolality and hyponatremia; I48.91 Unspecified atrial fibrillation; M06.9 Rheumatoid arthritis, unspecified; I10 Essential (primary) hypertension; Z86.73 Personal history of transient ischemic attack (TIA), and cerebral infarction without residual deficits; E78.00 Pure hypercholesterolemia, unspecified; Z87.891 Personal history of nicotine dependence; E03.9 Hypothyroidism, unspecified; G47.33 Obstructive sleep apnea (adult) (pediatric); I70.0 Atherosclerosis of aorta; K21.9 Gastro-esophageal reflux disease without esophagitis; Z86.010 Personal history of colon polyps; Z80.6 Family history of leukemia; Z80.1 Family history of malignant neoplasm of trachea, bronchus and lung; Z82.3 Family history of stroke
CPT/HCPCS: 71020; 76775; 80048; 81001; 82043; 83880; 84443; 85025; 85027; 87070; 87077; 87186; 87205; 87804; 94150; 94640; 94664; J0456; J0692; J2930; J7030; J7050; J7512; J7613